=== PATIENT | female | born 1945 | race Two or more races ===

== ENCOUNTER 2017-01-26 14:59 | Emergency (ER) | payer MEDICARE ==
[2017-01-26] MEDS ORDERED: Ondansetron ODT TAB* 4 MG PO ONE (15:12)
[2017-01-26] MEDS ORDERED: Aspirin Low Dose CHEW TAB* 81 MG PO ONE (15:18)
--- NOTE | 2017-01-26 15:27 | UC ---
Abdominal Pain Female HPI - HPI Summary HPI Summary: Severe epigastric pain, cramping, and dry heaves since this morning. Denies trouble breathing or fever. - History of Current Complaint Chief Complaint: UCDizziness Stated Complaint: FAINT, Time Seen by Provider: 01/26/17 15:09 Hx Obtained From: Patient - difficulty obtaining hx due to pt pain ?: No Onset/Duration: Sudden Onset, Lasting Hours Timing: Constant Severity Initially: Moderate Severity Currently: Severe Location: Diffuse, Epigastric Radiates: No Character: Cramping Aggravating Factor(s): Movement, Deep Breaths Alleviating Factor(s): Nothing Associated Signs and Symptoms: Positive: Nausea. Negative: Diaphoresis, Fever, Cough, Urinary Symptoms Allergies/Adverse Reactions: Allergies Allergy/AdvReac Type Severity Reaction Status Date / Time Sulfa Antibiotics Allergy Hives Verified 01/26/17 15:07 IDOINE DYE Allergy HIVES ALL Uncoded 01/26/17 15:07 OVER BODY,ELEVATED BP &HR Home Medications: Home Medications Clonazepam 0.5 mg PO 01/26/17 [History] Enalapril(NF) [Enalapril (NF)] 10 mg PO 01/26/17 [History] Levothyroxine TAB* [Synthroid TAB*] 50 mcg PO 01/26/17 [History] PMH/Surg Hx/FS Hx/Imm Hx Endocrine History: Thyroid Disease Cardiovascular History: Hypertension - Surgical History Surgical History: Yes Surgery Procedure, Year, and Place: APPENDECTOMY - Family History Known Family History: Positive: Hypertension Negative: Cardiac Disease - Social History Alcohol Use: Occasionally Substance Use Type: None Smoking Status (MU): Never Smoked Tobacco Review of Systems Constitutional: Negative Skin: Negative Eyes: Negative ENT: Negative Respiratory: Negative Cardiovascular: Negative Gastrointestinal: Abdominal Pain, Nausea Genitourinary: Negative Motor: Negative Neurovascular: Negative Musculoskeletal: Negative Neurological: Negative Psychological: Negative All Other Systems Reviewed And Are Negative: Yes Physical Exam Triage Information Reviewed: Yes Appearance: Well-Nourished, Pain Distress - mod Vital Signs: Initial Vital Signs Temp 97.1 F 01/26/17 15:02 Pulse 66 01/26/17 15:02 Resp 20 01/26/17 15:02 BP 235/115 01/26/17 15:02 Pulse Ox 100 01/26/17 15:02 Vital Signs Reviewed: Yes Eye Exam: Normal, Other - PERRL Eyes: Positive: Conjunctiva Clear ENT Exam: Normal ENT: Positive: Normal ENT inspection, Hearing grossly normal, Pharynx normal, TMs normal. Negative: Tonsillar swelling, Tonsillar exudate Dental Exam: Normal Neck exam: Normal Neck: Positive: Supple, Nontender, No Lymphadenopathy Respiratory Exam: Normal Respiratory: Positive: Chest non-tender, Lungs clear, Normal breath sounds, No respiratory distress, No accessory muscle use Cardiovascular: Positive: RRR Abdomen Description: Positive: Soft, Distended - softly, Guarding. Negative: CVA Tenderness (R), CVA Tenderness (L) Neurological Exam: Other - lying with eyes closed, responding appropriately to questions Skin Exam: Normal - WWP, no diaphoresis Abd Pain Female Course/Dx - Differential Dx/Diagnosis Provider Diagnoses: epigastric pain - Physician Notification/Consults Discussed Care of Patient With: Diana Dixon Time Discussed With Above Provider: 15:22 Instructed by Provider To: MD Will See In ED Discharge - Discharge Plan Condition: Stable Disposition: TRANS HIGHER LVL OF CARE FAC
[2017-01-26 15:34] VITALS: BP 232/103
[2017-01-26] MEDS ORDERED: Morphine INJ* 2 MG/ML 1 ML SYRINGE IV ONE (15:41)
== END 2017-01-26 15:58 | disposition short-term general hospital (02) ==
LOC: UCEAST 14:59
DX: R10.13 Epigastric pain (principal); E07.9 Disorder of thyroid, unspecified; I10 Essential (primary) hypertension; Z88.3 Allergy status to other anti-infective agents
CPT/HCPCS: 93005; 96374; 99213; A9270-GY; G0463; J2270

== ENCOUNTER 2017-01-26 16:16 | Observation (INO) | payer MEDICARE ==
[2017-01-26] MEDS ORDERED: NS 0.9% 1000 ML* 1,000 ML IV ONE (17:14)
[2017-01-26] MEDS ORDERED: Ondansetron INJ* 2 MG/ML VIAL IV ONE (17:14)
--- NOTE | 2017-01-26 18:06 | RAD ---
Indication: Right upper quadrant pain. Real-time sonography of the right upper quadrant was performed. Liver is normal in size. There are no focal lesions or intrahepatic ductal dilatation noted. The gallbladder demonstrates no calcified gallstones, pericholecystic fluid or wall thickening. Common duct measures 5 mm. The right kidney measures 10.9 x 3.9 x 5.3 cm with no hydronephrosis. The pancreatic head, neck and proximal body demonstrates no mass or pancreatic duct dilatation. The aorta and inferior vena cava are unremarkable. IMPRESSION: No evidence of cholelithiasis or biliary duct dilatation is noted.
[2017-01-26 18:23] LABS: Hematocrit 41 % (35-47); Hemoglobin 13.7 g/dl (12.0-16.0); Mean Corpuscular HGB Conc 33 g/dl (31-36); Mean Corpuscular Hemoglobin 29 pg (27-31); Mean Corpuscular Volume 88 fL (80-97); Mean Platelet Volume 8 um3 (7.4-10.4); Red Blood Count 4.71 10^6/ul (4.0-5.4); Red Cell Distribution Width 14 % (10.5-15); White Blood Count 13.4 10^3/ul (3.5-10.8)
[2017-01-26] MEDS ORDERED: Nitroglycerin TAB 0.4 MG* 0.4 MG TAB SL ONE (18:29)
[2017-01-26] MEDS ORDERED: Morphine INJ* 4 MG/ML 1 ML SYRINGE IV ONE (18:30)
[2017-01-26 18:46] LABS: ALT 17 U/L (7-52); AST 24 U/L (13-39); Alkaline Phosphatase 79 U/L (34-104); Anion Gap 6 mmol/L (2-11); BUN/Creatinine Ratio 14.8 (8-20); Blood Urea Nitrogen 13 mg/dL (6-24); C Reactive Protein < 1.00 mg/L (< 5.00); CO2 Carbon Dioxide 27 mmol/L (22-32); Calcium 9.6 mg/dL (8.6-10.3); Chloride 99 mmol/L (101-111); EGFR African American 81.9 (>60); EGFR Non-African American 63.7 (>60); Globulin 3.3 g/dL (2-4); Glucose 114 mg/dL (70-100); Lipase 12 U/L (11.0-82.0); Potassium 3.9 mmol/L (3.5-5.0); Sodium 132 mmol/L (133-145); Total Protein 7.3 g/dL (6.4-8.9)
[2017-01-26] MEDS ORDERED: hydrALAZINE IV* 20 MG/ML VIAL ONE (19:45)
[2017-01-26] MEDS ORDERED: hydrALAZINE IV* 20 MG/ML VIAL IV ONE (19:45)
--- NOTE | 2017-01-26 19:47 | HP ---
H&P (Free Text) History and Physical: PCP: Danya William MD Date/Time of Evaluation: 01/26/20171944 CC: "stomach spasms" HPI: Mrs Spencer is a very pleasant 71YO [place] female HX HTN & hypothyroidism who was transferred [place] [facility] from [facility] for onset upon awakening this AM of "stomach spasms" for which she references her epigastrum. The pain was radiating to the low chest. There was some mild SOB, nausea without emesis, and light-headedness, but no sweats, palpitations, F/C, change in bowels/bladder , or other issues. There were no exacerbating factors, but morphine alleviated the pain after a bit. She exercises 6x/week without issue. While in ED she developed a mild diffuse dull headache with a systolic of 200, given 10mg IV hydralazine with good BP & headache response. 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 Father passed of lung CA at age 75. ROS: as above, otherwise reviewed and all were negative Constitutional: NAD, normally developed, well-nourished white female vitals: Vital Signs Temp 36.3 C 01/26/17 17:03 Pulse 76 01/26/17 20:00 Resp 16 01/26/17 20:00 BP 156/76 01/26/17 20:00 Pulse Ox 97 01/26/17 20:00 Intake & Output 01/25/17 01/26/17 01/26/17 23:59 11:59 23:59 Weight 57.153 kg HEENM: atraumatic; sclera/conjunctiva: non-icteric/clear; hearing: clinically intact; oropharynx: clear, mucosa moist Neck: soft tissue: non-tender; thyroid: normal Pulmonary: clear to auscultation bilaterally, good aeration, no accessory muscle use CV: RR/RR, normal S1S2, no carotid bruit, no jugular venous distention, 2+ B DP/ PT, no edema Abdominal: soft, non-distended, non-tender, no rebound/guarding/rigidity, normoactive bowel sounds, no hepatosplenomegaly or masses, no costovertebral angle tenderness Musculoskeletal: general: grossly intact; gait: stable Integumental: normal appearance and texture of exposed skin Psychiatric orientation: AA&O to PPS affect: calm mood: pleasant eye contact: good content: reliable responses: timely insight: good Testing: Lab Results 01/26/17 01/26/17 01/26/17 Range/Units 18:15 18:15 18:15 WBC 13.4 H (3.5-10.8) 10^3/ul RBC 4.71 (4.0-5.4) 10^6/ul Hgb 13.7 (12.0-16.0) g/dl Hct 41 (35-47) % MCV 88 (80-97) fL MCH 29 (27-31) pg MCHC 33 (31-36) g/dl RDW 14 (10.5-15) % Plt Count 273 (150-450) 10^3/ul MPV 8 (7.4-10.4) um3 Neut % (Auto) 88.9 H (38-83) % Lymph % (Auto) 7.7 L (25-47) % [place] % (Auto) 3.0 (1-9) % Eos % (Auto) 0 (0-6) % Baso % (Auto) 0.4 (0-2) % Absolute Neuts (auto) 11.9 H (1.5-7.7) 10^3/ul Absolute Lymphs (auto) 1.0 (1.0-4.8) 10^3/ul Absolute Monos (auto) 0.4 (0-0.8) 10^3/ul Absolute Eos (auto) 0 (0-0.6) 10^3/ul Absolute Basos (auto) 0 (0-0.2) 10^3/ul Absolute Nucleated RBC 0 10^3/ul Nucleated RBC % 0 Sodium 132 L (133-145) mmol/L Potassium 3.9 (3.5-5.0) mmol/L Chloride 99 L (101-111) mmol/L Carbon Dioxide 27 (22-32) mmol/L Anion Gap 6 (2-11) mmol/L BUN 13 (6-24) mg/dL Creatinine 0.88 (0.51-0.95) mg/dL Est GFR ( Amer) 81.9 (>60) Est GFR (Non-Af Amer) 63.7 (>60) BUN/Creatinine Ratio 14.8 (8-20) Glucose 114 H (70-100) mg/dL Lactic Acid 0.9 (0.5-2.0) mmol/L Calcium 9.6 (8.6-10.3) mg/dL Total Bilirubin 0.80 (0.2-1.0) mg/dL AST 24 (13-39) U/L ALT 17 (7-52) U/L Alkaline Phosphatase 79 (34-104) U/L Troponin I 0.00 (<0.04) ng/mL C-Reactive Protein < 1.00 (< 5.00) mg/L Total Protein 7.3 (6.4-8.9) g/dL Albumin 4.0 (3.2-5.2) g/dL Globulin 3.3 (2-4) g/dL Albumin/Globulin Ratio 1.2 (1-3) Lipase 12 (11.0-82.0) U/L ECG, personally reviewed: sinus bradycardia rate 53, new J-point elevation V3 w / subtle J-point elevation V2, inverted T-wave III; non-diagnostic US gall bladder: IMPRESSION: No evidence of cholelithiasis or biliary duct dilatation is noted. Impression: 71F presenting with atypical chest discomfort concerning for anginal equivalent DIAGNOSIS & PLAN Primary chest discomfort r/o ACS : aspirin given in ED (but not documented in SEP) : hold beta marco 2nd bradycardia : telemetry : trend troponin : supplemental oxygen : NPO after midnight w/ meds w/ sips H2O : Magic Mouthwash 15cc x1 dose : exercise NST in AM hypertensive urgency : continue enalapril : hydralazine PRN systolic >175 : trend & consider adding 2nd line agent if requiring repeated hydralazine dosing Secondary hypothyroidism : continue levothyroxine Admission Rational: CDU observation for r/o ACS DVTp: heparin SQ Code Status: full HCP:
[2017-01-26] MEDS ORDERED: traMADol TAB* 50 MG PO PRN (20:44)
[2017-01-26] MEDS ORDERED: Morphine INJ* 2 MG/ML 1 ML SYRINGE IV PRN (20:44)
[2017-01-26] MEDS ORDERED: Ondansetron INJ* 2 MG/ML VIAL IV PRN (20:44)
[2017-01-26] MEDS ORDERED: Melatonin (NF) 3 MG TAB PO PRN (20:44)
[2017-01-26] MEDS ORDERED: Acetaminophen TAB* 325 MG PO PRN (20:44)
[2017-01-26] MEDS ORDERED: NS 0.9% 1000 ML* 1,000 ML IV SCH (20:45)
[2017-01-26] MEDS ORDERED: Magic Mouth Was-BEN/MAAL/LIDO SWISH SWAL ONE (21:00)
[2017-01-26] MEDS ORDERED: hydrALAZINE IV* 20 MG/ML VIAL IV PRN (21:34)
[2017-01-26] MEDS: Docusate CAP* 100 MG PO SCH (22:08)
[2017-01-26] MEDS: clonazePAM TAB(*) 0.5 MG PO SCH ×2 (23:53→23:56)
[2017-01-27] MEDS ORDERED: clonazePAM TAB(*) 0.5 MG PO SCH
[2017-01-27] MEDS ORDERED: Heparin VIAL(*) 5000 UNITS/ML VIAL (FIVE THOUSAND) SUBCUT SCH (06:00)
[2017-01-27] MEDS ORDERED: Levothyroxine TAB* 75 MCG TAB PO SCH (06:00)
[2017-01-27] MEDS ORDERED: Omeprazole CAP* 20 MG PO SCH (06:00)
[2017-01-27 06:08] LABS: Hematocrit 39 % (35-47); Hemoglobin 12.7 g/dl (12.0-16.0); Mean Corpuscular HGB Conc 33 g/dl (31-36); Mean Corpuscular Hemoglobin 29 pg (27-31); Mean Corpuscular Volume 89 fL (80-97); Mean Platelet Volume 8 um3 (7.4-10.4); Red Blood Count 4.33 10^6/ul (4.0-5.4); Red Cell Distribution Width 14 % (10.5-15); White Blood Count 7.7 10^3/ul (3.5-10.8)
[2017-01-27 06:24] LABS: Calcium 8.8 mg/dL (8.6-10.3); EGFR African American 70.7 (>60); Potassium 3.7 mmol/L (3.5-5.0)
[2017-01-27 06:25] LABS: Troponin I 0.01 ng/mL (<0.04)
[2017-01-27] MEDS ORDERED: Enalapril TAB* 5 MG PO SCH (09:00)
[2017-01-27] MEDS: Docusate CAP* 100 MG PO SCH (10:07)
--- NOTE | 2017-01-27 10:09 | RAD ---
HISTORY: Chest pain, hypertension, shortness of breath COMPARISONS: April 22, 2007 TECHNIQUE: A 1 day stress/rest myocardial perfusion study was performed, with exercise stress. The exercise portion was performed using the Ernesto protocol, for a total METs of 12.8. The stress portion was monitored by Dr. Griggs. Gated SPECT imaging was performed, with CT-based attenuation correction DOSE: Stress: Technetium 99m tetrofosmin, 25.89 millicuries, injected at 8:57 AM on January 27, 2017 Rest: Technetium 99m tetrofosmin, 10.3 millicuries, injected at 6:45 AM on January 27, 2017 Pharmacologic agent: None FINDINGS: CARDIAC MONITORING: Peak heart rate of 167 bpm, 111% of predicted EF: 75 % TID: 0.98 MOTION: Normal motion, with normal wall thickening. PERFUSION: There are no fixed or reversible perfusion defects. OTHER: None IMPRESSION: NO FIXED OR REVERSIBLE PERFUSION DEFECTS. ASSESSMENT: LOW RISK. Based on imaging criteria from ACC/AHA 2002. Guideline Update for the Management of Patient's with Chronic Stable Angina, table 23. Noninvasive Risk Stratification.
--- NOTE | 2017-01-27 13:31 | DS ---
CC: Dr. William DISCHARGE SUMMARY: DATE OF ADMISSION: DATE OF DISCHARGE: 01/27/17 HISTORY: This 71-year-old woman presented with complaint of stomach spasms that started on the day of admission. They are in the epigastrium and radiated to the low chest. She said she had some swe ats with this. She had no emesis. No change in her bowels. Rest of the history and past history i s detailed in the admission note. Patient was admitted to the telemetry unit. She had 3 troponin levels, all within normal limits. S he underwent a treadmill nuclear stress test, which was unremarkable. 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 She has never had any trouble doing this. She smoked for short period of time 50 years ago. On the morning of discharge, she was much improved. She had some mild pain but nothing like what del had before. She has not had any analgesics for probably about 12 hours. I suspect she may have had a viral illness. It has passed quickly. I note she had ultrasound of th e gallbladder which is negative. Routine laboratory tests were unremarkable including her liver fun ction tests. FINAL DIAGNOSES: 1. Probable viral syndrome. 2. Hypertension. 3. Hypothyroidism. DISCHARGE MEDICATIONS: 1. Enalapril 5 mg b.i.d. 2. Levothyroxine 75 mcg daily. 3. Clonazepam 0.25 mg h.s. [id number]/[facility] #: [id number]
[2017-01-27 15:09] VITALS: BP 135/78
--- NOTE | 2017-01-29 22:59 | ED ---
Roseline Ray Salem, scribed for Radu Bunch MD on 01/26/17 at 1804 . Abdominal Pain/Female - HPI Summary HPI Summary: Patient is a 71 y/o F who presents to the ED per EMS with diffuse abd pain since waking up this morning. Pt was seen at [facility] and received Morphine 4mg, Aspirin 325mg, NTG, and 8mg Zofran there. Per UC, pts abd pain radiated into chest in the morning. Pt also states that pain radiated into both arms and possibly into her jaw with spasm in lower extremities. She reports nausea, dizziness, and diaphoresis. She also reports a PMHx of a thyroid disorder and HTN. - History of Current Complaint Chief Complaint: EDAbdPain Stated Complaint: ABD PAIN Time Seen by Provider: 01/26/17 17:12 Hx Obtained From: Patient Onset/Duration: Gradual Onset, Lasting Hours, Still Present Timing: Constant Severity Initially: Moderate Severity Currently: Moderate Pain Intensity: 0 Pain Scale Used: 0-10 Numeric Location: Diffuse Radiates: Yes Radiates to: Chest Aggravating Factor(s): Nothing Alleviating Factor(s): Nothing Associated Signs and Symptoms: Positive: Diaphoresis, Nausea, Other: - Dizziness. Allergies/Adverse Reactions: Allergies Allergy/AdvReac Type Severity Reaction Status Date / Time Sulfa Antibiotics Allergy Hives Verified 01/26/17 15:07 IDOINE DYE Allergy HIVES ALL Uncoded 01/26/17 15:07 OVER BODY,ELEVATED BP &HR PMH/Surg Hx/FS Hx/Imm Hx Endocrine/Hematology History: Reports: Hx Thyroid Disease Denies: Hx Diabetes Cardiovascular History: Reports: Hx Hypertension Denies: Hx Pacemaker/ICD History: Denies: Hx Renal Disease Musculoskeletal History: Denies: Hx Osteoporosis Sensory History: Denies: Hx Hearing Aid Psychiatric History: Denies: Hx Panic Disorder - Cancer History Hx Chemotherapy: No Hx Radiation Therapy: No - Surgical History Surgery Procedure, Year, and Place: APPENDECTOMY Infectious Disease History: No Infectious Disease History: Denies: Traveled Outside the [place] in Last 30 Days - Family History Known Family History: Positive: Hypertension Negative: Cardiac Disease - Social History Alcohol Use: Occasionally Hx Substance Use: No Substance Use Type: Reports: None Hx Tobacco Use: No Smoking Status (MU): Never Smoked Tobacco Review of Systems Positive: Skin Diaphoresis. Negative: Fever, Chills Negative: Erythema Negative: Sore Throat Positive: Chest Pain Negative: Shortness Of Breath, Cough Positive: Abdominal Pain, Nausea. Negative: Vomiting Negative: dysuria, hematuria Negative: Myalgia, Edema Negative: Rash Neurological: Other - Dizziness. Positive: Headache All Other Systems Reviewed And Are Negative: Yes Physical Exam - Summary Physical Exam Summary: Constitutional: Well-developed, Well-nourished, Alert. (-) Distressed Skin: Warm, Dry HENT: Normocephalic; Atraumatic Eyes: Conjunctiva normal Neck: Musculoskeletal ROM normal neck. (-) JVD, (-) Stridor, (-) Tracheal deviation Cardio: Rhythm regular, rate normal, Heart sounds normal; Intact distal pulses; The pedal pulses are 2+ and symmetric. Radial pulses are 2+ and symmetric. (-) Murmur Pulmonary/Chest wall: Effort normal. (-) Respiratory distress, (-) Wheezes, (-) Rales Abd: Soft, (-) Tenderness, (-) Distension, (-) Guarding, (-) Rebound Musculoskeletal: (-) Edema Lymph: (-) Cervical adenopathy Neuro: Alert, Oriented x3 Psych: Mood and affect Normal Triage Information Reviewed: Yes Vital Signs On Initial Exam: Initial Vitals Temp Pulse Resp BP Pulse Ox 97.1 F 54 18 187/89 97 01/26/17 16:25 01/26/17 16:25 01/26/17 16:25 01/26/17 16:25 01/26/17 16:25 Vital Signs Reviewed: Yes - Kianna Coma Scale Coma Scale Total: 15 Diagnostics - Vital Signs Vital Signs Temp Pulse Resp BP Pulse Ox 01/26/17 17:03 97.3 F 54 16 187/89 96 01/26/17 16:25 97.1 F 54 18 187/89 97 - Laboratory Result Diagrams: 01/26/17 18:15 01/26/17 18:15 Lab Statement: Any lab studies that have been ordered have been reviewed, and results considered in the medical decision making process. - Ultrasound No standard instances Ultrasound Interpretation Completed By: Radiologist - GALLBLADDER US IMPRESSION : No evidence of cholelithiasis or biliary duct dilatation is noted. - EKG 1652 EKG Interpretation: Sinus bradycardia @ 53 bpm. No STEMI. No changes. Abdominal Pain Fem Course/Dx - Course Course Of Treatment: 71 y/o F presents with with diffuse abd pain since waking up this morning. Pt was seen at [facility] and received Morphine 4mg, Aspirin 325mg, NTG, and 8mg Zofran there. Per UC, pts abd pain radiated into chest in the morning. Pt also states that pain radiated into both arms and possibly into her jaw with spasm in lower extremities. She reports nausea, dizziness, and diaphoresis. Pt received Morphine, NTG, Zofran, and fluids in ED course. US shows, per radiology,. IMPRESSION: No evidence of cholelithiasis or biliary duct dilatation is noted. EKG shows Sinus bradycardia @ 53 bpm. No STEMI. No changes. Pt will be admitted. - Diagnoses Provider Diagnoses: Chest pain, unspecified - Provider Notifications Discussed Care Of Patient With: Mitchell Umana Time Discussed With Above Provider: 19:03 Instructed by Provider To: Admit As Inpatient Admit/Transition Orders Completed By ED Provider: Yes Discharge - Discharge Plan Condition: Stable Disposition: ADMITTED TO [facility] The documentation as recorded by the Roseline valerio Salem accurately reflects the service I personally performed and the decisions made by , Radu Bunch MD.
== END 2017-01-27 12:30 | disposition home or self-care (01) ==
LOC: ED 16:16 → MEDTELE 19:47
PROVIDERS: ADMIT Hospitalist; ATTEND Internal Medicine
DX: R10.13 Epigastric pain (principal); R07.9 Chest pain, unspecified; I10 Essential (primary) hypertension; E03.9 Hypothyroidism, unspecified; Z79.899 Other long term (current) drug therapy; Z88.2 Allergy status to sulfonamides
CPT/HCPCS: 36415; 76705; 78452; 80048; 80053; 83605; 83690; 84484; 85025; 85027; 86140; 93005; 93017; 96361; 96372; 96374; 96375; 99285; A9270-GY; A9502; G0378; J0360; J1644; J2270; J2405

== ENCOUNTER 2018-03-17 09:16 | Emergency (ER) | payer MEDICARE ==
--- NOTE | 2018-03-17 09:44 | UC ---
Dizzy HPI HPI Summary: IN-ROOM NOTE: Patient is a 72 y/o F. Patient reports in the room that the room is not spinning. Patient states she has a strong FRONTAL LUNDY rated 8/10. LUNDY radiates along right side to ear. LUNDY has been present since 0700 this morning. Patient states she feels WEAK and notes that when she tries to sit up, she cannot. She states she feels dizzy while attempting to sit up but not near LOC. Patient describes this dizziness as wooziness. Last night, she experienced room spinning dizziness. She also note NAUSEA but denies vomiting. Vision is at baseline. Patient denies chest pain, SOB, abdominal pain, and any other pain. Patient reports FROM in extremities. No recent fever nor neck pain. She reports high level of stress recently. Patient is retired but currently arranging a conference. Denies MO and angina. Is on medication for BP. Recently saw PCP two months ago and states BP was "fine". FMHx of HTN in mother, no FMHx of MO or CVA. Patient took home medications this morning as well as Tylenol. Patient had an episode of vertigo 5 years ago with room spinning. NOTE: Vital signs include an initial BP reading of 211/99. Pulse ox 99. Visit history is significant for Dx of atypical chest pain in January 28 2017 as well as hypertensive urgency. There is no change in EKG from that date. Patient is hypothyroid and by history has a cardiac murmur. She is on enalapril and aspirin. Her present EKG shows inferior Q-waves without ST elevation consistent with an old inferior infarct. She did have a stress test in January 28 2017 that was unremarkable. NURSES NOTE: pt states she began to feel like she was having an episode of vertigo last night. pt was dizzy. pt went to sleep and slept. pt got up today she measured her bp and it was high and she continued to be dizzy and feel nauseated. pt states she has been under increased stress over the past 1 week. - History Of Current Complaint Chief Complaint: UCDizziness Stated Complaint: DIZZINESS, HEADACHE Time Seen by Provider: 03/17/18 09:21 Hx Obtained From: Patient Onset/Duration: Lasting Days - onset last night Timing: Days - on Severity Currently: Severe Pain Intensity: 8 Pain Scale Used: 0-10 Numeric - 8/10 Character: Room Spinning - last night, notes when attempting to sit up she expericing "wozziness" Aggravating Factor(s): Position Change - sitting up aggravates dizziness Alleviating Factor(s): Nothing Associated Signs And Symptoms: Positive: Nausea. Negative: Vomiting, Chest Pain , SOB, Visual Changes - Allergies/Home Medications Allergies/Adverse Reactions: Allergies Allergy/AdvReac Type Severity Reaction Status Date / Time Sulfa (Sulfonamide Allergy Hives Verified 03/17/18 09:33 Antibiotics) IDOINE DYE Allergy HIVES ALL Uncoded 03/17/18 09:33 OVER BODY,ELEVATED BP &HR PMH/Surg Hx/FS Hx/Imm Hx Previously Healthy: Yes - hx of systolic murmur; old hx of vertigo Endocrine History: Hypothyroidism Cardiovascular History: Hypertension Neurological History: Other - vertigo Other Neurological History: vertigo - Surgical History Surgical History: Yes Surgery Procedure, Year, and Place: APPENDECTOMY - - Family History Known Family History: Positive: Hypertension Negative: Cardiac Disease - Social History Alcohol Use: Occasionally Substance Use Type: None Smoking Status (MU): Never Smoked Tobacco Review of Systems Constitutional: Other - POSITIVE: FEELING WEAK, RECENT INCREASED STRESS; NEGATIVE: FEVER ENT: Other - NEGATIVE: ABNORMAL VISION Respiratory: Other - NEGATIVE: SOB Cardiovascular: Other - NEGATIVE: CHEST PAIN Gastrointestinal: Nausea, Other - NEGATIVE: VOMITING, ABDOMINAL PAIN Musculoskeletal: Other: - NEGATIVE: NECK PAIN Neurological: Headache - FRONTAL RADIATING TO RIGHT SIDE OF HEAD, Other - POSITIVE: DIZZINESS; NEGATIVE: NEAR LOC All Other Systems Reviewed And Are Negative: Yes - Comments Additional Review of Systems Comments: POSITIVE: WEAK, FRONTAL LUNDY WITH RADIATION TO RIGHT SIDE OF HEAD, NAUSEA, DIZZINESS, RECENT INCREASED STRESS. NEGATIVE: ABNORMAL VISION, CHEST PAIN, ABDOMINAL PAIN, SOB, VOMITING, NEAR LOC, FEVER, NECK PAIN Physical Exam - Summary Physical Exam Summary: Appearance: The patient is well-appearing, is in no pain distress, and is well- nourished. PATIENT IS LYING SUPINE Eyes: Conjunctiva are clear. ENT: The hearing is grossly normal, the pharynx is normal, and the TMs are normal. There is no muffled or hoarse voice. Neck: The neck is supple and there is no lymphadenopathy. NO CAROTID BRUITS. Respiratory: The chest is nontender. LUNGS CLEAR, CARDIOVASCULAR 2/6 HOLOSYSTOLIC.. Cardiovascular: Heart is regular rate and rhythm. There is no murmur. Abdomen: The abdomen is soft and nontender. There is no organomegaly. Bowel sounds: present Musculoskeletal: Strength is intact. NORMAL MOVEMENT IN ALL EXTREMITIES. Neurological: The patient is alert.MILD DIZZINESS WITH HEAD MOVEMENT FROM LEFT TO RIGHT. CRANIAL NERVE 2-12 INTACT; FUNDI, LIMITED EXAM, BENIGN. NORMAL NEURO EXAM Psychological: The patient displays age appropriate behavior Skin: Negative for rashes. Triage Information Reviewed: Yes Vital Signs: Initial Vital Signs Temp 96.6 F 03/17/18 09:29 Pulse 55 03/17/18 09:29 Resp 18 03/17/18 09:29 BP 211/99 03/17/18 09:29 Pulse Ox 99 03/17/18 09:29 Vital Signs Reviewed: Yes Diagnostics - EKG EKG Comments: 929 Cardiac Rate: NL - rate of 63 BPM Cardiac Rhythm: Sinus: Normal ST Segment: Normal - inferior Q-waves w/o ST elevation consistent with an old inferior infarct EKG Comparison: No Significant Change - compared w/ EKG from 01/28/2017 Dizzy Course/Dx - Course Course Of Treatment: 72 y/o F w/ c/o severe frontal and right sided LUNDY as well as vertigo Sx that onset last night. This morning she was awaken w/ non- vertiginous "dizziness" and nausea. In the urgent care center, her initial BP was above 200, subsequent in 190s. She is oriented and normally conversive. Her EKG shows no acute ischemia or arrhythmia, she does have an old murmur. My concern is that her neurological Sx may be related to her BP, although this could be simply severe vertigo and hypertensive urgency that is intermittent and chronic. Patient had an episode of vertigo 5 years ago with room spinning. I spoke to the patient and her friend who was present in the room. They have chose to go to ED via ambulance for further treatment as needed. Differential Dx of vertigo, exacerbation of HTN, LUNDY versus cerebrovascular event. Dx of HTN, LUNDY, vertigo: etiology unspecified. Patient is stable and voiced understanding of transfer plan. - Differential Dx/Diagnosis Differential Diagnosis/HQI/PQRI: CVA, Other - HTN, vertigo, LUNDY Provider Diagnoses: HTN, LUNDY, vertigo: unclear etiology - Physician Notifications Discussed Patient Care With: MICHAEL BENITEZ Time Discussed With Above Provider: 10:17 Instructed by Provider To: Other - At 1017: Informed MICHAEL Benitez of incoming patient to [facility] ED. Discharge - Sign-Out/Discharge Documenting (check all that apply): Patient Departure - transfer All imaging exams completed and their final reports reviewed: No Studies - Discharge Plan Condition: Stable Disposition: TRANS HIGHER LVL OF CARE FAC Referrals: Anil William MD [Primary Care Provider] - Additional Instructions: Ambulance to ED. EKG: no change since January,. Old inferior infarct. No acute ischemia or arrythmia. Previously noted systolic murmur. No a fib. Headache, frontal and right side of head; BP, rechecked, 190s, systolic; significant vertigo with any movement. Previous vertigo 5 years ago. Probable vertigo and exacerbation of hypertension with tension headache but cannot rule out cerebrovascular event. - Billing Disposition and Condition Condition: STABLE Disposition: Trans Higher Lvl of Care Fac - Attestation Statements Document Initiated by Scribe: Yes Documenting Scribe: Jarrell Gonzalez Provider For Whom Maldonado is Documenting (Include Credential): Ilan De Jesus M.D. Scribe Attestation: Jarrell Ray, scribed for Ilan De Jesus M.D. on 03/17/18 at 1026. Scribe Documentation Reviewed: Yes Provider Attestation: The documentation as recorded by the Jarrell valerio accurately reflects the service I personally performed and the decisions made by , Ilan De Jesus M.D.
[2018-03-17 09:48] VITALS: BP 193/95
== END 2018-03-17 10:31 | disposition short-term general hospital (02) ==
LOC: UCEAST 09:16
DX: R42 Dizziness and giddiness (principal); R51 Headache; I10 Essential (primary) hypertension
CPT/HCPCS: 93005; 99213; G0463

== ENCOUNTER 2018-03-17 10:52 | Inpatient (IN) | payer MEDICARE ==
--- NOTE | 2018-03-17 11:22 | ED ---
Hypertension - HPI Summary HPI Summary: This patient is a 72 year old F presenting to [facility] with a chief complaint of a headache with elevated blood pressure since last night. Headache is 8/10 in severity. Patient reports lightheadedness, generalized weakness, and nausea. Denies CP, SOB, vision changes and abdominal pain. PMHx of heart murmur, HTN that is typically well controlled with medication. History of hospital admissions due to elevated blood pressure. Denies history of CVA and TIA. - History of Current Complaint Chief Complaint: EDHypertension Stated Complaint: DIZZINESS/HEADACHE Time Seen by Provider: 03/17/18 10:57 Hx Obtained From: Patient Onset/Duration: Started Hours Ago Timing: Constant Aggravating Factor(s): Nothing Alleviating Factor(s): Nothing Associated Signs & Symptoms: Headaches, Dizziness Related Hx: Similar Episode - Allergies/Home Medications Allergies/Adverse Reactions: Allergies Allergy/AdvReac Type Severity Reaction Status Date / Time Iodinated Contrast- Oral and Allergy Hives Verified 03/17/18 18:52 IV Dye Iodine and Iodide Containing Allergy Hives Verified 03/17/18 18:52 Produc Sulfa (Sulfonamide Allergy Hives Verified 03/17/18 11:04 Antibiotics) IDOINE DYE Allergy HIVES ALL Uncoded 03/17/18 11:04 OVER BODY,ELEVATED BP &HR Home Medications: Home Medications Vitamin B-12 03/17/18 [History] Vitamin B6 TAB* PO DAILY 03/17/18 [History] PMH/Surg Hx/FS Hx/Imm Hx Endocrine/Hematology History: Reports: Hx Thyroid Disease Denies: Hx Diabetes Cardiovascular History: Reports: Hx Angina, Hx Hypercholesterolemia, Hx Hypertension Denies: Hx Coronary Artery Disease, Hx Myocardial Infarction, Hx Pacemaker/ ICD Respiratory History: Denies: Hx Asthma, Hx Chronic Obstructive Pulmonary Disease (COPD) History: Denies: Hx Dialysis, Hx Renal Disease Musculoskeletal History: Denies: Hx Rheumatoid Arthritis, Hx Osteoporosis Sensory History: Reports: Hx Contacts or Glasses Denies: Hx Hearing Aid Opthamlomology History: Reports: Hx Contacts or Glasses Psychiatric History: Denies: Hx Panic Disorder - Cancer History Hx Chemotherapy: No Hx Radiation Therapy: No - Surgical History Surgery Procedure, Year, and Place: APPENDECTOMY - - Immunization History Immunizations Up to Date: Yes Infectious Disease History: No Infectious Disease History: Denies: Traveled Outside the [place] in Last 30 Days - Family History Known Family History: Positive: Hypertension Negative: Cardiac Disease - Social History Alcohol Use: Occasionally Hx Substance Use: No Substance Use Type: Reports: None Hx Tobacco Use: No Smoking Status (MU): Never Smoked Tobacco Review of Systems Positive: Other - lightheaded Negative: Blurred Vision Positive: Other - hypertension. Negative: Chest Pain Negative: Shortness Of Breath Positive: Nausea. Negative: Abdominal Pain Positive: Headache, Weakness All Other Systems Reviewed And Are Negative: Yes Physical Exam - Summary Physical Exam Summary: GENERAL: Patient is a well developed and nourished female who appears generally malaised. Patient is not in any acute respiratory distress. HEAD AND FACE: Normocephalic EYES: PERRLA, EOMI x 2. EARS: Hearing grossly intact. MOUTH: Oropharynx within normal limits. NECK: Supple, trachea is midline, no adenopathy, no JVD, no carotid bruit. CHEST: Symmetric, no tenderness at palpation LUNGS: Clear to auscultation bilaterally. No wheezing or crackles. CVS: Regular rate and rhythm, S1 and S2 present, no murmurs or gallops appreciated. ABDOMEN: Soft, non-tender. Bowel sounds are normal. No abdominal abnormal pulsations. EXTREMITIES: Full ROM in all major joints, no edema, no cyanosis or clubbing. NEURO: Alert and oriented x 3. No acute neurological deficits. Speech is normal and follows commands. Cranial nerves II-XII grossly intact, no dysmetria finger to nose, nml heel to harris SKIN: Dry and warm Triage Information Reviewed: Yes Vital Signs On Initial Exam: Initial Vitals Temp Pulse Resp BP Pulse Ox 97.9 F 52 16 170/107 99 03/17/18 10:56 03/17/18 10:56 03/17/18 10:56 03/17/18 10:56 03/17/18 10:56 Vital Signs Reviewed: Yes Diagnostics - Vital Signs Vital Signs Temp Pulse Resp BP Pulse Ox 03/17/18 10:56 97.9 F 52 16 170/107 99 - Laboratory Result Diagrams: 03/17/18 11:45 03/17/18 11:44 Lab Statement: Any lab studies that have been ordered have been reviewed, and results considered in the medical decision making process. - Radiology CXR Radiology Interpretation Completed By: Radiologist - Stigmata of obstructive lung disease. No acute pulmonary or cardiac process evident. ED Physician has reviewed this report. - CT Brain CT CT Interpretation Completed By: Radiologist - Negative unenhanced head CT. ED Physician has reviewed this report. - EKG 1136 Cardiac Rate: Bradycardia - 49 BPM EKG Rhythm: Sinus Bradycardia EKG Interpretation: Q wave seen in inferior lead with old infarcts; Q waves in anterior leads Hypertension Course/Dx - Course Course Of Treatment: 72 year old F presenting to [facility] with a chief complaint of a headache with elevated blood pressure since last night. Headache is 8/10 in severity. Patient reports lightheadedness, generalized weakness, and nausea. Denies CP, SOB, vision changes and abdominal pain. An EKG reveals Q wave seen in inferior lead with old infarcts; Q waves in anterior leads at 49 BPM. Patient is given Reglan, Toradol, Hydralazine, and Benadryl. A CXR reveals, "Stigmata of obstructive lung disease. No acute pulmonary or cardiac process evident." Brain CT is unremarkable. Patient is given Reglan, Toradol, Hydralazine, and Benadryl. Case discussed with hospitalist. I discussed results with patient. The patient agrees with this plan. - Diagnoses Differential Diagnosis/HQI PQRI: Drug Ingestion Provider Diagnoses: Dizzinesses - Physician Notifications Discussed Care Of Patient With: Keysha Dale - hospitalist Time Discussed With Above Provider: 13:32 Instructed by Provider To: Admit As Inpatient Discharge - Sign-Out/Discharge Documenting (check all that apply): Patient Departure - admit - Discharge Plan Condition: Stable Disposition: ADMITTED TO [facility] - Billing Disposition and Condition Condition: STABLE Disposition: Admitted to [facility] - Attestation Statements Document Initiated by Scribe: Yes Documenting Scribe: Mariam Zimmerman Provider For Whom Soniaibe is Documenting (Include Credential): Kit Erickson MD Scribe Attestation: Mariam Ray, scribed for Kit Erickson MD on 03/18/18 at 1142. Scribe Documentation Reviewed: Yes Provider Attestation: The documentation as recorded by the scribeMariam accurately reflects the service I personally performed and the decisions made by me, Kit Erickson MD
[2018-03-17 11:50] LABS: ABS Basophils 0 10^3/ul (0-0.2); ABS Eosinophils 0 10^3/ul (0-0.6); ABS Lymphocytes 1.2 10^3/ul (1.0-4.8); ABS Monocytes 0.5 10^3/ul (0-0.8); ABS Neutrophils 8.3 10^3/ul (1.5-7.7); ABS Nucleated RBC 0 10^3/ul; Eosinophil % 0.2 % (0-6); Hematocrit 39 % (35-47); Hemoglobin 13.5 g/dl (12.0-16.0); Lymphocyte % 12.3 % (25-47); Mean Corpuscular HGB Conc 34 g/dl (31-36); Mean Corpuscular Hemoglobin 30 pg (27-31); Mean Corpuscular Volume 87 fL (80-97); Mean Platelet Volume 7.2 um3 (7.4-10.4); Nucleated Red Blood Cells % 0; Platelet Count 272 10^3/ul (150-450); Red Blood Count 4.56 10^6/ul (4.00-5.40); Red Cell Distribution Width 14 % (10.5-15)
[2018-03-17 12:01] LABS: INR 1.03 (0.77-1.02)
[2018-03-17 12:09] LABS: EGFR Non-African American 66.1 (>60)
--- NOTE | 2018-03-17 12:24 | RAD ---
Indication: Dizziness. Comparison: No relevant prior exams available on the [facility] PACS for comparison. Technique: Noncontrast CT vertex of skull through foramen magnum. Report: The sulci, ventricles, and basal cisterns are normal for age. Davis matter white matter differentiation is preserved without evidence for edema. No intra or extra axial hemorrhage, mass, or fluid collection detected. Unremarkable visualized orbital contents. Unremarkable calvarium and skull base. Unremarkable scalp. The visualized paranasal sinuses and mastoid air spaces are clear. IMPRESSION: #. Negative unenhanced head CT.
[2018-03-17] MEDS ORDERED: hydrALAZINE IV* 20 MG/ML VIAL IV SLOW PU ONE (12:28)
[2018-03-17] MEDS ORDERED: Metoclopramide IV* 5 MG/ML 2 ML VIAL IV ONE (12:36)
--- NOTE | 2018-03-17 12:58 | RAD ---
Indication: Nausea, dizziness, muscle cramps. Headache. Hypertension. Comparison: July 12, 2017 CT abdomen. April 23, 2010 chest radiograph. Technique: Upright AP 1225 hours Report: Elevated lung volumes and both diffuse mild prominence of the interstitial markings and patchy rarefaction of the mid to upper lung zone interstitial markings. Costochondral calcifications noted. No focal pulmonary lesion, compelling alveolar consolidation, pleural effusion, pneumothorax. The heart, pulmonary vasculature, and mediastinal contours are unremarkable. Negative for free air beneath the diaphragm. IMPRESSION: #. Stigmata of obstructive lung disease. No acute pulmonary or cardiac process evident.
[2018-03-17] MEDS ORDERED: Ketorolac INJ* 15 MG/ML 1 ML VIAL IV PUSH ONE (14:13)
[2018-03-17] MEDS ORDERED: diPHENhydraMINE IV* 50 MG/ML 1 ml VIAL (BENADRYL) IV ONE (14:13)
[2018-03-17] MEDS ORDERED: PROCHLORPERAZINE INJ 5 MG/ML 2 ML VIAL IV PRN (14:44)
[2018-03-17] MEDS ORDERED: Ketorolac INJ* 15 MG/ML 1 ML VIAL IV PUSH PRN (14:45)
[2018-03-17] MEDS ORDERED: NS 0.9% 1000 ML* 1,000 ML IV ONE (15:05)
[2018-03-17] MEDS ORDERED: Meclizine TAB* 12.5 MG PO PRN (15:13)
--- NOTE | 2018-03-17 16:24 | HP ---
CC: Dr. William; Dr. Ardon HISTORY AND PHYSICAL: DATE OF ADMISSION: 03/17/18 TIME OF EVALUATION: 2:30 p.m. PRIMARY CARE PROVIDER: Dr. William EPOXY SPECIALIST: Dr. Ardon. CHIEF COMPLAINT: "I think I am dehydrated." HISTORY OF PRESENT ILLNESS: Ms. Spencer is a 72-year-old lady with a past medical history of hypertensi on, kauu-cq-odkswnsa aortic stenosis, hyperlipidemia, who presents to the emergency room with complai nts of headache and dizziness and the feeling that she is dehydrated. The patient was admitted to [facility] in January 2017, with complaints of chest pain. She was found to have h ypertensive urgency and the initial plan was to increase her antihypertensives and she states that he r ADRIAN inhibitor was increased to 5 mg twice a day and that she has not had issues. She states that this past week she was very busy making arrangements for a console attendant in her home that happened last night. She states that she initially felt dizzy and overnight developed a headache th at she describes as a dull sensation radiating from the right side of her forehead all the way back t o posterior area of her neck. This was associated with nausea. She also felt weak, fatigued, the di zziness persisted and she decided to come to the emergency room for further evaluation. She states t hat she has been very compliant with all of her medications. She denies eating anything different or more salty than usual despite having the console attendant at her home yesterday. There is no chest pain, p alpitations, shortness of breath, vision changes, or any focal neurological deficits. She had no fever, no chills. There is no sick contact at home. PAST MEDICAL HISTORY: 1. Swue-zx-bufgqfdf aortic stenosis. The patient was seen in December by Dr. Ardon with complaints of exertional chest pain and Dr. Ardon felt that this was secondary to progression of her aortic sten osis and recommended that she cut down on her weightlifting. The patient underwent an echocardiogram that showed an ejection fraction of 65% with [id number] aortic stenosis with aortic valve area of 1.5 to 1.6 square cm and compared to her prior echo in 2017, the mean gradient has increased from 9 and the aortic valve area was felt to be stable. The patient also underwent an echo stress test t hat showed no inducible ischemia by ECG criteria with normal BP response to exercise. 2. Hypertension. 3. Hyperlipidemia. 4. Hypothyroidism. PAST SURGICAL HISTORY: Status post appendectomy with ruptured appendix/peritonitis. MEDICATION LIST: 1. Aspirin 81 mg p.o. daily. 2. Enalapril 5 mg p.o. b.i.d. 3. Levothyroxine 50 mcg p.o. daily. 4. Magnesium oxide 400 mg p.o. daily. 5. Multiple supplements including biotin, calcium, vitamin D, cinnamon, vitamin B5, 6 and B12, and v itamin E. ALLERGIES: With SULFA, the patient had hives as well as with IODINE DYE. SOCIAL HISTORY: The patient has a remote history of tobacco abuse. No history of alcohol or drug us e. 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 He is still her surrogate decision maker, Mr. Avery Spencer, phone number is [phone]. REVIEW OF SYSTEMS: A 14-point review of systems was performed and all the pertinent negative and pos itive findings are in the HPI. PHYSICAL EXAMINATION GENERAL: The patient is a pleasant, elderly lady, sitting up in the ED stretcher, in no acute distre ss. VITAL SIGNS: Temperature 97.9, heart rate is 58, respiratory rate is 16, oxygen saturation 97% on ro om air, blood pressure is 189/99. CHEST: Breath sounds present bilaterally with no added sounds. CVS: Normal S1, S2. Regular rate and rhythm with a systolic murmur. ABDOMEN: Soft. Bowel sounds are present. EXTREMITIES: No edema. NEURO: She is alert and oriented x3. Face is symmetric. Cranial nerves II through XII grossly inta ct. She is able to move all 4 extremities. Sensation is intact. DIAGNOSTIC STUDIES/LAB DATA: The patient had a CBC that showed WBC of 10, hemoglobin of 13.5, hemat ocrit of 39, platelets of 272 with 82% neutrophils. INR is 1.0. Chemistry showed a sodium of 135, p otassium of 3.5, chloride of 101, bicarb of 27, BUN of 15, creatinine of 0.85, glucose of 101, lactic acid of 0.8, calcium of 9.4, magnesium of 2.2. LFTs are normal. Troponin was 0. CT of the brain without contrast was negative. Chest x-ray shows stigmata of obstructive lung disease, but no acute pulmonary or cardiac process was evident. EKG done 03/17/18, at 11:36 a.m. showed sinus bradycardia at 49 beats per minute with Q-waves in II, III, aVF, but no significant ST-T changes. No changes when compared to her prior EKG from January 2017. ASSESSMENT AND PLAN: Ms. Spencer is a 72-year-old lady with a past medical history of hypertension, hyp erlipidemia, hypothyroidism, vbga-ga-dnwxrhjn aortic stenosis, who presents to the emergency room wit h complaints of headache, found to have hypertensive urgency. 1. Hypertensive urgency. The patient will be admitted as observation to the telemetry floor. I am going to continue her enalapril and add hydralazine p.r.n. On her prior admission, the plan was to ad d a second agent, but her blood pressure was well controlled later on, so she continued to be on enal october only. With her history of [id number]-ptgsvhge aortic stenosis, we have to be careful with her blo od pressure control because she does need some preload to maintain her cardiac output. 2. Headache. I suspect this is associated with her uncontrolled hypertension at this point and she appears to also have a component of tension headache, likely associated with stress that she was rafaela g through last week organizing this big console attendant at her home. The patient will receive pain managem ent with acetaminophen and Toradol. CT of the brain was negative and she has no other focal neuro de ficits at this time, but if the headache persists and if she develops any other neurological symptoms , we may pursue an MRI of the brain. 3. Dizziness, likely secondary to her hypertensive urgency. We are controlling her blood pressure a nd she will have meclizine as needed for dizziness. 4. Hypothyroidism. We will continue levothyroxine. 5. DVT prophylaxis: The patient has a score of 2 on the DVT Prophylaxis Risk Assessment Guide and s he will be started on subcutaneous heparin. TIME SPENT: Approximately 50 minutes were spent with the patient's interview, medical records review , physical examination to complete the admission, more than half of this time was spent [id number] with the patient and coordination of care. [id number]/[facility] #: [id number]
[2018-03-17] MEDS: NS 0.9% 1000 ML* 1,000 ML IV SCH (17:45)
[2018-03-17] MEDS: Acetaminophen TAB* 325 MG PO PRN (17:46)
[2018-03-17] MEDS: Enalapril TAB* 5 MG PO SCH (20:12)
[2018-03-17] MEDS: Aspirin 81 mg CHEW TAB* 81 MG TAB.CHEW PO SCH (20:12)
[2018-03-17] MEDS: Heparin VIAL(*) 5000 UNITS/ML VIAL (FIVE THOUSAND) SUBCUT SCH (21:40)
[2018-03-18] MEDS: NS 0.9% 1000 ML* 1,000 ML IV SCH (03:58)
[2018-03-18] MEDS: Acetaminophen TAB* 325 MG PO PRN ×2 (04:03→11:38)
[2018-03-18] MEDS: Heparin VIAL(*) 5000 UNITS/ML VIAL (FIVE THOUSAND) SUBCUT SCH (05:56)
[2018-03-18] MEDS: Levothyroxine TAB* 50 MCG TAB PO SCH (05:56)
[2018-03-18] MEDS: Enalapril TAB* 5 MG PO SCH (09:31)
[2018-03-18] MEDS: Magnesium Oxide TAB* 400 MG PO SCH (09:31)
[2018-03-18] MEDS ORDERED: Clopidogrel TAB* 75 MG PO SCH (11:00)
[2018-03-18] MEDS: hydrALAZINE IV* 20 MG/ML VIAL IV SLOW PU PRN ×2 (12:25→20:27)
[2018-03-18] MEDS ORDERED: Gadobenate* (CONTRAST) 529 MG/ML 10 ML SDV IV ONE (13:34)
--- NOTE | 2018-03-18 13:57 | PN ---
Subjective Date of Service: 03/18/18 Interval History: HOSPITALIST PROGRESS NOTE Patient seen and examined at bedside. Care reviewed and d/w Monique Green RN. She feels a little better today, but still has right sided LUNDY and dizziness. Had one episode of blurry vision earlier today, now resolved. No CP, palpitations, dyspnea. Family History: Unchanged from Admission Social History: Unchanged from Admission Past Medical History: Unchanged from Admission Objective Active Medications: Acetaminophen (Tylenol Tab*) 650 mg PO Q6H PRN PRN Reason: pain/fever Last Admin: 03/18/18 11:38 Dose: 650 mg Aspirin (Aspirin 81 Mg Chew Tab*) 81 mg PO BEDTIME [facility] Last Admin: 03/17/18 20:12 Dose: 81 mg Clopidogrel Bisulfate (Plavix Tab*) 75 mg PO DAILY [facility] Last Admin: 03/18/18 11:38 Dose: 75 mg Gadobenate Dimeglumine (Multihance* (Contrast)) 10 ml IV ONCE ONE Stop: 03/18/18 13:35 Last Admin: 03/18/18 13:35 Dose: 10 ml Hydralazine HCl (Apresoline Iv*) 5 mg IV SLOW PU Q6H PRN PRN Reason: SBP>180 Last Admin: 03/18/18 12:25 Dose: 5 mg Levothyroxine Sodium (Synthroid Tab*) 50 mcg PO 0600 [facility] Last Admin: 03/18/18 05:56 Dose: 50 mcg Magnesium Oxide (Magox 400 Tab*) 400 mg PO DAILY [facility] Last Admin: 03/18/18 09:31 Dose: 400 mg Meclizine HCl (Antivert Tab*) 12.5 mg PO Q8HR PRN PRN Reason: DIZZINESS Last Admin: 03/18/18 04:31 Dose: 12.5 mg Prochlorperazine Edisylate (Compazine Inj*) 5 mg IV Q6H PRN PRN Reason: NAUSEA/VOMITING Tramadol HCl (Ultram*) 50 mg PO Q8H PRN PRN Reason: SEVERE PAIN Vital Signs - 8 hr 03/18/18 03/18/18 03/18/18 07:21 10:17 12:04 Temperature 97.9 F 99 F Pulse Rate 51 61 62 Respiratory 14 14 Rate Blood Pressure 159/74 143/77 188/90 (mmHg) O2 Sat by Pulse 99 99 Oximetry Oxygen Devices in Use Now: None Appearance: Pleasant elderly lady lying in bed in NAD. Eyes: No Scleral Icterus, PERRLA Ears/Nose/Mouth/Throat: Mucous Membranes Moist Neck: Trachea Midline Respiratory: Symmetrical Chest Expansion and Respiratory Effort, Clear to Auscultation Cardiovascular: RRR - Normal S1 and S2, +SM Neurological: Alert and Oriented x 3, NL Muscle Strength and Tone Result Diagrams: 03/17/18 11:45 03/17/18 11:44 Assess/Plan/Problems-Billing Assessment: Mrs Spencer is a 72yo F with PMH of HTN, mild to moderate , HLD, hypothyroidism, who presented to ED with c/o LUNDY and dizziness, found to have Hypertensive urgency. - Patient Problems (1) Hypertensive urgency Comment: - HTN is controlled now, but symptoms persist. - Cardiology consult requested for anti hypertensive optimization in the setting of . (2) Headache Comment: - Now associated with one episode of blurry vision - Neurology consult requested. - Neuro checks. - Concerned with posterior circulation CVA vs sagittal sinus thrombosis. - Aspirin/Plavix for now. (3) DVT prophylaxis Comment: - SQ heparin. (4) Full code status Status and Disposition: Change to inpatient.
[2018-03-18] MEDS: traMADol TAB* 50 MG PO PRN (15:59)
--- NOTE | 2018-03-18 16:47 | RAD ---
INDICATION: Headache and dizziness. There is clinical concern for dural venous thrombosis. COMPARISON: CT of the brain dated March 17, 2018 TECHNIQUE: Sagittal T1, axial T1, T2, susceptibility, FLAIR and diffusion-weighted images were obtained. Before and after the injection of 11 mL MultiHance MRA and MRV of the head and neck were acquired as well. FINDINGS: There are mild symmetrical involutional changes of the ventricles, cistern and sulci that are not out of proportion to the patient's age. On the T2-weighted FLAIR images there are scattered subcentimeter T2 bright foci in the periventricular and subcortical white matter, the largest at the left ngo radiata measuring 7 mm in greatest axial dimension (series 7 image 18). No other significant focal abnormality or mass effect is seen. No areas of restricted diffusion are present. There is no evidence for infarct or hemorrhage. The visualized portion of the paranasal sinuses and mastoid air cells appear clear. MRA and MRV: Arterial phase [id number] imaging does not reveal any focal abrupt filling defects of the intracranial arterial vasculature. The right common carotid artery measures 6 mm in diameter. There is atherosclerotic narrowing at the carotid bulb narrowing the internal carotid artery to 2 mm corresponding to approximately 66% degree stenosis. The left common carotid artery measures 6 mm in diameter and there is atherosclerotic calcification at the left carotid bulb causing the internal carotid artery to narrow to 4 mm corresponding to 33% degree stenosis. There are no filling defects of the dural sinuses including the sagittal sinus and bilateral transverse sinuses. The right transverse sinus is dominant relative to the left. Appropriate flow is recorded in the bilateral jugular veins. IMPRESSION: 1. There is periventricular and subcortical T2 bright hyperintensity that is most commonly associated with chronic microvascular disease. Less likely diagnosis includes acute demyelinating disease. If the latter is clinically suspected contrast-enhanced image of the brain is advised to evaluate for active enhancement. (Contrast-enhanced images of the brain were not acquired). 2. Atherosclerotic narrowing at the carotid bulb appears to cause approximately 66% degree stenosis at the right and 33% degree stenosis on the left. This MR appearance can be confirmed with ultrasound of the carotid arteries. 3. There are no abrupt filling defects on either MRA or MRV imaging that would correspond to acute infarction or venous thrombosis, respectively.
[2018-03-18] MEDS ORDERED: clonazePAM TAB(*) 0.5 MG PO ONE (21:00)
[2018-03-18] MEDS: Aspirin 81 mg CHEW TAB* 81 MG TAB.CHEW PO SCH (21:21)
[2018-03-18] MEDS: amLODIPine TAB* 5 MG PO SCH (21:39)
--- NOTE | 2018-03-18 22:40 | CONS ---
CONSULTATION REPORT: DATE OF CONSULT: 03/18/18 REQUESTING PHYSICIAN: Dr. Dumont. REASON FOR CONSULT: Headache with imbalance and vision change. HISTORY OF PRESENT ILLNESS: Nataliia Spencer is a 72-year-old woman with a history of known aortic stenosis, hypertension, who was admitted yesterday for a feeling of headache and dizziness and the question of being dehydrated. She was in the process of throwing a brood station manager [place] followed by a weekend of activities. She went through the brood station manager and it went well. The next morning, which was yesterday morning the day of admission, she woke up feeling dizzy, having difficulty walking with a headache on the right side of her head from the occiput to the frontal region with fatigue and nausea. She indicates that there was no julio vertigo and that the world was not spinning. She did not feel lightheaded like she was going to faint, but she felt as if everything was off and her balance was off. This morning, she had a transient episode of blurring of vision bilaterally. The sense of being off balance is slightly better today, but still present. Yesterday, she could hardly stand; today, she has to be careful with walking. Of note, there is no history of migraines. She does have today some nausea, no vomiting. There has been photophobia and phonophobia. There has been no neck pain. Yesterday, she had some spasms in her calf and some tingling in bilateral feet. Otherwise, there has been no other focal numbness or weakness. She denies any chest pain, chest pressure, neck pain, trauma, shortness of breath. There has been no new numbness or weakness of arms or legs other than mentioned above and other focal neurologic symptoms are as mentioned above. PAST MEDICAL HISTORY: Include hypertension, aortic stenosis, hypothyroidism. PAST SURGICAL HISTORY: Remote appendectomy. MEDICATIONS: Her current medications include: 1. Acetaminophen 650 mg p.o. q.6 hours p.r.n. fever or pain. 2. Aspirin 81 mg p.o. q. day. 3. Hydralazine 5 mg IV q.6 hours p.r.n. systolic blood pressure greater than 180. 4. Levothyroxine 50 mcg p.o. q. day. 5. Magnesium oxide 400 mg p.o. q. day. 6. Antivert 12.5 mg p.o. q.8 hours p.r.n. dizziness. 7. Compazine 5 mg IV q.6 hours p.r.n. nausea, vomiting. 8. Tramadol 50 mg p.o. q.8 hours p.r.n. severe pain. ALLERGIES: Include CONTRAST DYE, which caused hives and some shortness of breath and SULFA DRUGS, which caused hives. SOCIAL HISTORY: Nataliia Spencer lives with her and is his caregiver. He has Parkinson's disease. She has a remote history of tobacco use. She does not drink alcohol or use illicit drugs. 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 REVIEW OF SYSTEMS: Vision changes as mentioned above. There has been no change in hearing, change in speech, change in swallow. She denies any chest pain, chest pressure, palpitations, shortness of breath. There has been numbness in bilateral feet, which was transient and has gone away. There has been no other new focal numbness or weakness of arms or legs, change in bowel or bladder habits. She denies any rashes, joint pain, weight loss, drenching night sweats, high fevers for unknown reason. PHYSICAL EXAM: Her most recent vitals include a temperature of 97.9 degrees Fahrenheit, her pulse was 61 and regular, respiratory rate was 14, her saturation was 99% on room air, and her most recent blood pressure was 143/77. She had a regular cardiac rhythm. There was a 2/6 systolic murmur noted not only over her sternal border, but also over her apex of her heart. There was no carotid bruit. Her lungs were clear to auscultation. There was no evidence of peripheral edema. Her peripheral pulses were intact. No petechiae were noted. Her pupils were equal and responsive to light. I could not visualize her fundi. She had full extraocular movements with no nystagmus, full mcguire to confrontation. Her facial expression with sensation and hearing were equal with the exception of light touch, which seemed to be less on the left, but could not be reproduced with pin or cold. Her hearing was equal to finger rub. Palate was upgoing. Tongue was midline. Sternocleidomastoid and trapezius were 5/5 in strength. There was some different discomfort when tapping over the right splenius capitis compared to the left. There was no pronator drift. She had full strength in her upper and lower extremities with normal [id number] and [id number] movements. Vibration sensation was decreased at the left large toe by 20 seconds, left ankle by 15 seconds, right toe was barely felt, and right ankle decreased by 25 seconds. Proprioception was intact. There was no other asymmetry to pinprick, cold, or light touch. Reflexes were 2+ and symmetric in the upper extremities, 1+ in the lower extremities. Toes were flexor response. Her Romberg was wobbly. She could stand on her heels and her toes holding onto the examiner. When she walked, she walked very carefully with an increased stance. Tandem gait was not attempted given her clinical status. DIAGNOSTIC STUDIES/LAB DATA: Includes CBC with a white count at 10. She had normal hemoglobin and hematocrit and platelets. There was no left shift. Her INR was 1.03 and PTT was within normal limits. Her complete metabolic panel showed a glucose at 101. Her BUN/creatinine ratio was 17.6 on admission. The lactic acid was 0.8 and her repeat troponins have been 0. She had a CT of the brain performed and this film was reviewed directly. There were no clear focal changes. In looking at the sinuses, I question some opacification and discussed with Radiology, who could not tell whether this was the variant versus if there could be evidence of venous thrombosis. IMPRESSION AND PLAN: A 72-year-old woman with a history of hypertension, aortic stenosis, now with sense of imbalance, right-sided headache, transient vision changes. Her exam today is looking good other than her being very careful on her feet. Her CT of the brain was read as being unremarkable, and there was question on direct review whether there could be some changes in the sinuses. Differential diagnosis includes posterior circulation stroke, venous thrombosis and migraine, although migraine is a diagnosis of exclusion. She has no history of migraines. She cannot have a CTA or CTV secondary to CONTRAST allergy. Accordingly, we are going to proceed with an MRI of the brain , MRA of the brain and neck, and MRV of the brain for evaluation of differential diagnosis. She is on telemetry. Dr. Ardon is to see her regarding her aortic stenosis. Fasting lipid profile has been ordered for tomorrow. For now, Plavix is added to her aspirin. If we see evidence of venous thrombosis, this will indicate alternative treatment with hydration and anticoagulation. Accordingly, MRI team is called in today. Education was given regarding all the above diagnoses. In regards to headache, she had received ketorolac with some help. Given the double antiplatelet therapy, we are holding off on providing more anti-inflammatory and we will stick with Tylenol and heat. Dr. Dumont has written for tramadol to use as an alternative if Tylenol does not help significantly. TIME SPENT: Over an hour and a half was spent in patient care, education was given to the patient regarding history, differential diagnosis and workup. I will re-round later today after her scans. Dr. Prince will be taking over the service tomorrow. [id number]/[facility] #: [id number] OSMIN
--- NOTE | 2018-03-18 22:48 | PN ---
FOLLOWUP NOTE: DATE OF SERVICE: 03/18/18 Update: MRI of the brain was completed as well as MRV and MRA. There was no evidence of venous thrombosis. There was no evidence of dissection. There was no evidence of aneurysm noted on report, there was no evidence of vertebral basilar stenosis. The MRI film was reviewed directly as well as the MRA, MRV and discussed with Radiology. At this point, given there is no evidence of injury to suggest stroke, we will stop the Plavix. Most likely explanation for her symptoms is a migrainous phenomenon. She has tramadol as needed. We will give clonazepam tonight to help with sleep, muscle spasm, and anxiety. I will ask Dr. Prince to follow up tomorrow. Nonspecific white matter change was noted on MRI. This is in the setting of hypertension. Some atherosclerotic disease was noted. She is on aspirin. Lipid profile was pending. We will treat according to results. [id number]/[facility] #: [id number] MTDD
[2018-03-19] MEDS: Levothyroxine TAB* 50 MCG TAB PO SCH (05:44)
[2018-03-19] MEDS: traMADol TAB* 50 MG PO PRN ×2 (06:46→16:48)
[2018-03-19] MEDS: amLODIPine TAB* 5 MG PO SCH (07:40)
[2018-03-19] MEDS: Magnesium Oxide TAB* 400 MG PO SCH (09:07)
--- NOTE | 2018-03-19 10:54 | PN ---
Subjective Date of Service: 03/19/18 Interval History: HOSPITALIST PROGRESS NOTE Patient seen and examined at bedside. Dizziness and blurry vision are resolved, but headache continues 8/10 intensity. No N/V. Family History: Unchanged from Admission Social History: Unchanged from Admission Past Medical History: Unchanged from Admission Objective Active Medications: Acetaminophen (Tylenol Tab*) 650 mg PO Q6H PRN PRN Reason: pain/fever Last Admin: 03/18/18 11:38 Dose: 650 mg Amlodipine Besylate (Norvasc Tab*) 5 mg PO DAILY [facility] Last Admin: 03/19/18 07:40 Dose: 5 mg Aspirin (Aspirin 81 Mg Chew Tab*) 81 mg PO BEDTIME [facility] Last Admin: 03/18/18 21:21 Dose: 81 mg Hydralazine HCl (Apresoline Iv*) 5 mg IV SLOW PU Q6H PRN PRN Reason: SBP>180 Last Admin: 03/18/18 20:27 Dose: 5 mg Levothyroxine Sodium (Synthroid Tab*) 50 mcg PO 0600 [facility] Last Admin: 03/19/18 05:44 Dose: 50 mcg Magnesium Oxide (Magox 400 Tab*) 400 mg PO DAILY [facility] Last Admin: 03/19/18 09:07 Dose: 400 mg Meclizine HCl (Antivert Tab*) 12.5 mg PO Q8HR PRN PRN Reason: DIZZINESS Last Admin: 03/18/18 04:31 Dose: 12.5 mg Prochlorperazine Edisylate (Compazine Inj*) 5 mg IV Q6H PRN PRN Reason: NAUSEA/VOMITING Tramadol HCl (Ultram*) 50 mg PO Q8H PRN PRN Reason: SEVERE PAIN Last Admin: 03/19/18 06:46 Dose: 50 mg Vital Signs - 8 hr 03/19/18 03/19/18 03/19/18 03:12 03:33 03:34 Temperature 97.5 F Pulse Rate 65 Respiratory 20 17 17 Rate Blood Pressure 137/72 (mmHg) O2 Sat by Pulse 97 Oximetry 03/19/18 03/19/18 03/19/18 05:47 06:46 07:33 Temperature 97.6 F Pulse Rate 58 Respiratory 18 18 18 Rate Blood Pressure 179/87 (mmHg) O2 Sat by Pulse 98 Oximetry Oxygen Devices in Use Now: None Appearance: Pleasant lady lying down in bed in NAD. Eyes: No Scleral Icterus Ears/Nose/Mouth/Throat: Mucous Membranes Moist Neck: Trachea Midline Neurological: Alert and Oriented x 3, NL Muscle Strength and Tone Result Diagrams: 03/17/18 11:45 03/17/18 11:44 Assess/Plan/Problems-Billing Assessment: Mrs Spencer is a 72yo F with PMH of HTN, mild to moderate , HLD, hypothyroidism, who presented to ED with c/o LUNDY and dizziness, found to have Hypertensive urgency. - Patient Problems (1) Hypertensive urgency Comment: - HTN is controlled now, but symptoms persist. - Cardiology consult requested for anti hypertensive optimization in the setting of - recommended Amlodipine. (2) Headache Comment: - Now associated with one episode of blurry vision - Neurology consult appreciated. MRI/MRA/MRV negative for CVA, showed only 66% right carotid stenosis. - LUNDY could be secondary to migraines - Neuro f/u. (3) DVT prophylaxis Comment: - SQ heparin. (4) Full code status Status and Disposition: Inpatient.
--- NOTE | 2018-03-19 11:19 | ECHO ---
Patient: JOSE PARIKH [facility] Rec#: [id number] : 1945 Date: 03/19/2018 Age: 72y Height: 162.56 cm / 64.0 in Weight: 55.79 kg / 123.0 lbs Sex: F BSA: 1.59 Room#: [facility] Admit Date#: 03/17/2018 Type: Inpatient Referring: Keysha Benavides MD Reading: Rick Up MD Ad Terminal Makeup Operator: Briseyda Chen RDCS CC: Anil William MD Transthoracic Echocardiogram Indication: CVA BP: 137/72 HR: 57 Rhythm: Bradycardia Findings History: HTN,mild-mod ,HLD,hypothyroid. Technical Comments: The study quality is good. Completed at 1019. Left Ventricle: The left ventricular chamber size is decreased. Global left ventricular wall motion and contractility are within normal limits. There is normal left ventricular systolic function. The estimated ejection fraction is 55-60%. The assessment of diastolic function is non-diagnostic. Left Atrium: The left atrial chamber size is normal. Right Ventricle: The right ventricular cavity size is normal. The right ventricular global systolic function is normal. Right Atrium: The right atrial cavity size is normal. There is no patent foramen ovale visualized. There is no evidence of patent foramen ovale shunting. A patent foramen ovale is not demonstrated with color Doppler and agitated contrast. Aortic Valve: The aortic valve is trileaflet. The aortic valve leaflets are mildly thickened. Systolic excursion of the aortic valve cusps is reduced. There is no evidence of aortic regurgitation. There is mild to moderate aortic stenosis. The highest aortic valve velocity was obtained with the standard probe from the A5C view. Mitral Valve: The mitral valve leaflets are mildly thickened. There is mild mitral regurgitation. There is no evidence of mitral stenosis. Tricuspid Valve: The tricuspid valve leaflets are normal. There is mild to moderate tricuspid regurgitation. There is evidence of mild pulmonary hypertension. Pulmonic Valve: The pulmonic valve appears normal. There is no evidence of pulmonic regurgitation. There is no pulmonic stenosis. Pericardium: The pericardium appears normal. Aorta: There is no dilatation of the ascending aorta. There is no dilatation of the aortic arch. There is no dilation of the aortic root. Pulmonary Artery: The main pulmonary artery appears normal. Venous: The inferior vena cava appears normal in size. There is a greater than 50% respiratory change in the inferior vena cava dimension. Contrast: Normal saline was used as contrast for the bubble study. Intravenous contrast was used to help determine presence of intracardiac shunting. Summary: There are no significant changes when compared to the previous study done on 01/18/18 Conclusions Global left ventricular wall motion and contractility are within normal limits. The estimated ejection fraction is 55-60%. The right ventricular global systolic function is normal. A patent foramen ovale is not demonstrated with color Doppler and agitated contrast. The aortic valve leaflets are mildly thickened. There is mild to moderate aortic stenosis. There is mild mitral regurgitation. There is mild to moderate tricuspid regurgitation. There is evidence of mild pulmonary hypertension. The pericardium appears normal. Measurements Name Value Normal Range RVIDd (AP) 2D 2.5 cm (0.9 - 2.6) RVDdMajor (2D) 3.1 cm (2.2 - 4.4) RAd ISD 4CH 3.7 cm (3.4 - 4.9) RA (A4C)W 3.9 cm (2.9 - 4.6) IVSd (2D) 0.9 cm (0.6 - 1) LVPWd (2D) 0.9 cm (0.6 - 1) LVIDd (2D) 3.4 cm (3.6 - 5.4) LVIDs (2D) 2.4 cm - LV FS (2D) 31 % (25 - 45) Aortic Annulus 1.6 cm (1.4 - 2.6) Ao root diameter (2D) 2.9 cm (2.1 - 3.5) Ascending Ao 2.4 cm (2.1 - 3.4) Aortic arch 2.3 cm (1.8 - 3.4) Descending Ao 0.7 cm - LA dimension (AP) 2D 3 cm (2.3 - 3.8) LAd ISD 4CH 4.3 cm (2.9 - 5.3) LA ISD 4CH W 3.1 cm (2.5 - 4.5) Name Value Normal Range LA ESV SP 4CH (A/L) 22 ml - LA ESV SP 2CH (A/L) 43 ml - LA ESV BP (A/L) 33 ml - LA ESV BP (A/L) index 20.96 ml/m2 - LA ESV SP 4CH (MOD) 21 ml - LA ESV SP 2CH (MOD) 36 ml - Name Value Normal Range MV E-wave Vmax 0.9 m/sec - MV deceleration time 229 msec - MV A-wave Vmax 0.9 m/sec - MV E:A ratio 0.98 ratio - LV septal e' Vmax 0.07 m/sec - LV lateral e' Vmax 0.08 m/sec - LV E:e' septal ratio 12.85 ratio - LV E:e' lateral ratio 11.25 ratio - Name Value Normal Range AV Vmax 2.5 m/sec - AV VTI 54 cm - AV peak gradient 24.65 mmHg - AV mean gradient 11.12 mmHg - LVOT diameter 1.7 cm - LVOT Vmax 1.4 m/sec - LVOT VTI 35.6 cm - LVOT peak gradient 7.75 mmHg - LVOT mean gradient 3.86 mmHg - ROQUE (continuity Vmax) 1.3 cm2 - ROQUE (continuity VTI) 1.5 cm2 - Name Value Normal Range MR Vmax 4.9 m/sec - MR VTI 199 cm - Name Value Normal Range TR Vmax 3.1 m/sec - TR peak gradient 37 mmHg - RAP 3 mmHg - RVSP 40 mmHg - IVC diameter 1.9 cm - Name Value Normal Range PV Vmax 0.7 m/sec - PV peak gradient 1.95 mmHg -
[2018-03-19] MEDS ORDERED: Morphine INJ* 2 MG/ML 1 ML SYRINGE (TWO MG - NEW SYRINGE VERSION) IV PRN (12:56)
--- NOTE | 2018-03-19 20:47 | CONS ---
NEUROLOGY FOLLOWUP NOTE: DATE OF FOLLOWUP: 03/19/18 LOCATION: She is in room 444. HOSPITALIST: Dr. Keysha Dumont. CHIEF COMPLAINT: Headache. INTERVAL HISTORY: Since yesterday, Nataliia feels about the same. Her headaches get better after she receives tramadol, but it only lasts for about 4 hours. The headache is bifrontal and sometimes right hemicranial. I reviewed the history with her. She woke up with a headache, nausea, and dizziness without vertigo Monday. Prior to that, she had felt fine. She did not have her usual 1 cup of coffee in the morning because of the nausea. The headache persisted and she ended up presenting to the hospital and was admitted. She had the headache ever since. It fluctuates with treatment and is worse when she gets up and moves around. In the past, she rarely would get headaches in which she did not have 1 cup of coffee in the morning. She has never had migraines or frequent headaches in the past. She has not noticed any changes in her vision with this headache. She does note some pain behind her eyes, but notes no change in vision with eye movement. She has not had any fevers, sore throat , chills, or sweats. She rarely goes outside and has not had any skin rashes or bug bites. MEDICATIONS: Reviewed and she is on: 1. Acetaminophen 650 mg q.6 hours p.r.n. 2. Amlodipine 5 mg p.o. q. day. 3. Aspirin 81 mg p.o. q. day. 4. Hydralazine 5 mg IV q.6 hours p.r.n. 5. Tramadol 50 mg p.o. q.8 hours p.r.n. 6. Prochlorperazine 5 mg IV q.6 hours p.r.n. nausea. PHYSICAL EXAM: She looks tired, but is otherwise alert. Temperature 97.4 orally, blood pressure most recently 161/88, heart rates in the 50s, respiratory rate 16, oxygen saturation is 99% on room air. Lungs are clear bilaterally. Heart is in a regular rate and rhythm with a grade 2/6 early systolic murmur loudest at the upper right sternal border. Neck is supple. Oral mucosa is moist and there is no erythema or exudate. There does appear to be a right carotid bruit, but it may be a transmitted murmur. Neurologic Exam: Pupils are small and react to from about 2.5 to 2 mm. There is afferent pupillary defect. Eye movements are full and there is no ptosis. Funduscopic exam is unremarkable bilaterally. Facial musculature is symmetric. Palate and tongue appeared normal and speech is clear without dysarthria. Masseter strength seems normal and there is no tenderness to palpation of the temporalis region. She is alert and oriented and a good detailed historian. Memory is intact and language is fluent. DIAGNOSTIC STUDIES/LAB DATA: Laboratory data is reviewed. Last labs were 03/17 when she had a normal CBC, normal chemistry profile. Other data includes an MR angiogram of the brain and neck, which revealed about 60% right and 30% left carotid stenosis extracranially. MR venogram of the brain is reported as normal. MRI of the brains reviewed and revealed some nonspecific white matter changes. Transthoracic echocardiogram from yesterday reveals mild to moderate aortic stenosis, mild to moderate tricuspid regurgitation, mild pulmonary hypertension, ejection fraction 55% to 60%. IMPRESSION AND PLAN: Impression is that of a new onset headache suspicious for an infectious or inflammatory process. I doubt she has a bacterial infection and that should be much less sicker and have the usual signs hematologically as well as clinically including fever. Temporal arteritis or an inflammatory disorder is another possibility and I recommend we get a sat sedimentation rate and a also CRP today. I do not think she needs a lumbar puncture as I think a bacterial infection is very unlikely and I think even less likely an intracranial hemorrhage. She has some atherosclerotic disease in her cerebrovasculature, but nothing that would require intervention or cause her headaches. She has hypertension, but it is not of a magnitude at this point in time that should be causing headaches and she has had hypertension for a longtime and the headache is new and just last few days. If it is viral, it should resolve spontaneously. For now, I would recommend continuing symptomatic treatment, a sat sedimentation rate and CRP and to follow her clinically a little further. She should have urinalysis to look for proteinuria and her blood pressures should continue to be monitored and treated. I will continue to follow her along with you. [id number]/[facility] #: [id number] [facility]ENT[facility]en
[2018-03-19] MEDS: Aspirin 81 mg CHEW TAB* 81 MG TAB.CHEW PO SCH (21:51)
[2018-03-20] MEDS: Levothyroxine TAB* 50 MCG TAB PO SCH (05:22)
[2018-03-20 07:59] VITALS: BP 157/78
[2018-03-20] MEDS: amLODIPine TAB* 5 MG PO SCH (08:17)
[2018-03-20] MEDS: Magnesium Oxide TAB* 400 MG PO SCH (08:17)
[2018-03-20] MEDS: Acetaminophen TAB* 325 MG PO PRN (08:21)
--- NOTE | 2018-03-20 10:15 | CONS ---
CC: Hospitalist CARDIOLOGY CONSULTATION: DATE OF CONSULT: 03/19/18 REASON FOR CONSULT: Hypertension with known aortic stenosis. HISTORY OF PRESENT ILLNESS: Ms. Spencer is a 72-year-old woman whom I follow for aortic valve stenosis and on evaluation this summer, she was found to have mild- to- moderate stenosis. The patient was in her usual state of health. She has some chronic stress in her life from her 's illness with Parkinson's. She was also organizing an event for the weekend and had a dinner at an event on Monday night and felt well. Then Monday morning, she woke with a headache and nausea and it was found that her blood pressure to be very high, with that headache, dizziness, and nausea. At the time I saw her, she did not think that she was dehydrated, but her admission note states this. She has a history of hypertension treated with ADRIAN inhibitors, which were increased by her street openings inspector. The patient denies chest pain, pressure, heaviness, or decline in exercise ability. She denies any nonsteroidals or change in diet that would lead to increase in salt. PAST MEDICAL HISTORY: 1. Aortic valve stenosis (02/14/17 echo showed aortic valve area 1.5 cm sq. with mean gradient 11 mmHg. PA pressure of 39 mmHg). Stress echo January 2018 showed no ischemia, no increase in PA pressure rest/stress, normal BP rise. 2. Hypertension. 3. Hypothyroid disease. 4. Restless leg. 5. Diarrhea that responded to B12 replacement. 6. B12 deficiency. PAST SURGICAL HISTORY: Includes appendectomy. MEDICATIONS: The patient's outpatient medicines included: 1. Magnesium oxide. 2. Potassium. 3. Levothyroxine 50 mcg a day. 4. Evening primrose. 5. Enalapril 5 mg b.i.d. 6. Cinnamon. 7. Vitamin D. 8. Biotin. 9. Aspirin 81 mg a day. 10. Calcium citrate 950 mg every other day. 11. Zinc. 12. Vitamin E. 13. Vitamin B6. 14. Vitamin B5. 15. Vitamin B12. ALLERGIES: She is allergic or intolerant to IV CONTRAST DYE, IODINE, SULFA. FAMILY HISTORY: Significant that her father of lung cancer. Mother of melanoma with a history of hypertension. SOCIAL HISTORY: The patient is . Lives with her who has Parkinson's. 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 Smoked until 1974 (smoked 8 years). Drinks occasional glass of wine. No history of recreational drug use. Drinks a cup of coffee a day. REVIEW OF SYSTEMS: Review of systems was negative for orthopnea, PND. In fact , she said she slept well the night before. No history of diarrhea, constipation, change in bladder habits. No dysuria. No fevers, chills, or sweats. No chest pain, pressure, or heaviness. All other 15-point review of systems were unremarkable. PHYSICAL EXAM: On exam, the patient is a lean, fit-appearing older woman, looking concerned, but in no medical distress. Vitals: She is 5 feet 4 inches , weighs 123 pounds with a BMI of 21. My consult was at 03/18/18. At the time I saw her, her blood pressure was 180/89, pulse was 57, respiratory rate 18, she is afebrile, and oxygen saturation 98%. HEENT: Pupils are equal and round. Mucous membranes moist. Neck: Without increased JVP. Good carotid pulses. No audible bruits. Breath sounds clear with good effort. No wheezes, rales, or rhonchi. Coronary: S1, S2 regular, soft, early peaking. Systolic murmur heard in the right upper sternal border best. Abdomen: Flat, active bowel sounds, soft, nontender. Lower extremity is free of edema with palpable and symmetrical posterior tibial pulses and radial pulses were symmetrical. Neurologically, awake, alert, and oriented to person, place, and time. Grossly normal sensory and motor function in the upper and lower extremities and normal gait. STUDIES: A 12-lead ECG from 03/17/18 showed normal sinus rhythm 49 beats a minute. QRS axis -30. Normal AV and IV conduction times and unremarkable ST segments. QRS complexes leads 3 and AVF. Old PA versus normal variant. MRI from the brain, neck, and head reviewed showing some signs consistent with chronic microvascular disease with less likely demyelinating disease. Atherosclerotic narrowing of the carotid bulb with 65% occlusion on the right and 33% stenosis in the left. No evidence of acute [employer] STOCK [employer]ORTER infarction. LABORATORY DATA: White count 10, hemoglobin 13.5, hematocrit 39, platelets 272 , mild increase in neutrophils. INR 1.03. PTT 33. Sodium 135, potassium 3.5, glucose 101, chloride 101, bicarb 27, BUN 15, creatinine 0.85. ALT 17. Troponin 0.00, #2 0.00. BNP of 23. SUMMARY: In summary, Nataliia Spencer is a 72-year-old woman admitted with symptomatic hypertension significantly changed from her typical blood pressure ( in December of this year at my office blood pressure 148/80). Enalapril in the setting of aortic stenosis can raise blood pressure, so one option would be to replace this with a calcium channel marco and we could start low and titrate up. I have recommended amlodipine 5 mg a day. As the patient has carotid stenosis, and her blood pressure may have increased in response to increased enalopril, it is possible she has renal artery stenosis and consideration of either ultrasound or CT scan to evaluate for this could be performed to ensure renal artery stenosis is not contributing to her hypertension. Updating the lipid panel in light of her carotid plaque would be recommended and with new LDL goal of less than 70, an updated echo has already been ordered can be reviewed, but on exam, there is no evidence of significant progression in the aortic stenosis. The patient asked about caffiene and headaches, her last caffiene was Monday, it is possible that caffiene withdrawal could contribute to her head ache at this point, but I don't think it caused it. Thank you for allowing me to assist in this nice woman's care. [id number]/[facility] #: [id number] OSMIN
== END 2018-03-20 11:20 | disposition home or self-care (01) | DRG 305 ==
LOC: ED 10:52 → MEDTELE 15:27 → OBSVTOIN 03-19 09:00
PROVIDERS: ADMIT Internal Medicine; ATTEND Internal Medicine
DX: I16.0 Hypertensive urgency (principal); I10 Essential (primary) hypertension; E78.5 Hyperlipidemia, unspecified; E86.0 Dehydration; G25.81 Restless legs syndrome; E53.8 Deficiency of other specified B group vitamins; I65.23 Occlusion and stenosis of bilateral carotid arteries; I27.20 Pulmonary hypertension, unspecified; I08.2 Rheumatic disorders of both aortic and tricuspid valves; E03.9 Hypothyroidism, unspecified; Z88.2 Allergy status to sulfonamides; Z91.041 Radiographic dye allergy status; Z87.891 Personal history of nicotine dependence; Z82.49 Family history of ischemic heart disease and other diseases of the circulatory system; Z72.89 Other problems related to lifestyle; Z80.1 Family history of malignant neoplasm of trachea, bronchus and lung
CPT/HCPCS: 36415; 70450; 70544; 70549; 70553; 71045; 80053; 80061; 83036; 83605; 83735; 83880; 84484; 85025; 85610; 85652; 85730; 86140; 93005; 93306; 99213; 99284; A9270-GY; A9577; G0378; G0463; J0360; J1200; J1644; J1885; J2270; J2765

== ENCOUNTER 2018-03-24 03:18 | Emergency (ER) | payer MEDICARE ==
--- NOTE | 2018-03-24 03:29 | ED ---
Headache - HPI Summary HPI Summary: This patient is a 72 [facility] a chief complaint of severe right-sided LUNDY since earlier this evening. The patient notes the LUNDY has gradually worsened throughout the evening. The patient reports that she took Tramadol at 02:10 and since then her symptoms have improved. Patient reports that she was admitted to [facility] for 3 days this week for similar symptoms. Symptoms aggravated by nothing. Symptoms alleviated by nothing. Patient reports elevated BP, slightly blurred vision. Patient denies abdominal pain, SOB, or CP. Patient denies any cardiac PMHx. - History Of Current Complaint Stated Complaint: HIGH BLOOD PRESSURE Hx Obtained From: Patient Onset/Duration: Gradual Onset, Started hours ago, Still Present Currently Pain Is: Moderate Timing: Constant, Hours Aggravating Factor: Nothing Allevating Factors: Nothing Associated Signs And Symptoms: Visual Changes - slightly blurred vision Related History: Similar Episode/DX As: - earlier this week - Allergies/Home Medications Allergies/Adverse Reactions: Allergies Allergy/AdvReac Type Severity Reaction Status Date / Time Iodinated Contrast- Oral and Allergy Hives Verified 03/17/18 18:52 IV Dye Iodine and Iodide Containing Allergy Hives Verified 03/17/18 18:52 Produc Sulfa (Sulfonamide Allergy Hives Verified 03/17/18 11:04 Antibiotics) IDOINE DYE Allergy HIVES ALL Uncoded 03/17/18 11:04 OVER BODY,ELEVATED BP &HR PMH/Surg Hx/FS Hx/Imm Hx Endocrine/Hematology History: Reports: Hx Thyroid Disease Denies: Hx Diabetes Cardiovascular History: Reports: Hx Angina, Hx Hypercholesterolemia, Hx Hypertension Denies: Hx Coronary Artery Disease, Hx Myocardial Infarction, Hx Pacemaker/ ICD Respiratory History: Denies: Hx Asthma, Hx Chronic Obstructive Pulmonary Disease (COPD) History: Denies: Hx Dialysis, Hx Renal Disease Musculoskeletal History: Denies: Hx Rheumatoid Arthritis, Hx Osteoporosis Sensory History: Reports: Hx Contacts or Glasses Denies: Hx Hearing Aid Opthamlomology History: Reports: Hx Contacts or Glasses Psychiatric History: Denies: Hx Panic Disorder - Cancer History Hx Chemotherapy: No Hx Radiation Therapy: No - Surgical History Surgery Procedure, Year, and Place: APPENDECTOMY - - Family History Known Family History: Positive: Hypertension Negative: Cardiac Disease - Social History Alcohol Use: Occasionally Hx Substance Use: No Substance Use Type: Reports: None Hx Tobacco Use: No Smoking Status (MU): Never Smoked Tobacco Review of Systems Negative: Fever Negative: Epistaxis Positive: Other - elevated BP Negative: Rash Positive: Headache All Other Systems Reviewed And Are Negative: Yes Physical Exam - Summary Physical Exam Summary: Appearance: Well-appearing, Well-nourished, lying in bed comfortably Skin: Warm, dry, no obvious rash Eyes: sclera anicteric, no conjunctival pallor ENT: mucous membranes moist, pharynx appears normal Neck: Supple, nontender Respiratory: Clear to auscultation, no signs of respiratory distress Cardiovascular: Normal S1, S2. No murmurs. Normal distal pulses in tibial and radial bilaterally. Abdomen: Soft, nontender, normal active bowel sounds present Musculoskeletal: Normal, Strength/ROM Intact Neurological: A&Ox3, awake and alert, mentation is normal, speech is fluent and appropriate Psychiatric: affect is normal, does not appear anxious or depressed Triage Information Reviewed: Yes Vital Signs Reviewed: Yes Diagnostics - Laboratory Result Diagrams: 03/24/18 03:39 03/24/18 03:39 Lab Statement: Any lab studies that have been ordered have been reviewed, and results considered in the medical decision making process. 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 She underwent a fairly complete evaluation including MR imaging of her brain. Repeat blood studies and EKG show no evidence of end organ damage to the kidney or heart. Her neurologic exam is nonfocal. There are no new interval findings compared to last week. Her blood pressure medicine was adjusted and she is improved now. She is stable for discharge. - Diagnoses Provider Diagnoses: Headache, Hypertensive urgency Discharge - Sign-Out/Discharge Documenting (check all that apply): Patient Departure - Discharge Plan Condition: Stable Disposition: HOME Patient Education Materials: Acute Headache (ED), Chronic Hypertension (ED) Referrals: Anil William MD [Primary Care Provider] - Additional Instructions: Increase your norvasc to 10 mg daily - Billing Disposition and Condition Condition: STABLE Disposition: Home - Attestation Statements Document Initiated by Maldonado: Yes Documenting Scribe: Katarina Guerra Provider For Whom Maldonado is Documenting (Include Credential): Jeffry Foley MD Scribe Attestation: Katarina Ray, scribed for Jeffry Foley MD on 03/24/18 at 0544. Scribe Documentation Reviewed: Yes Provider Attestation: The documentation as recorded by the [email or web address], Katarina Guerra accurately reflects the service I personally performed and the decisions made by me, Jeffry Foley MD
[2018-03-24] MEDS ORDERED: amLODIPine TAB* 5 MG PO ONE (03:31)
[2018-03-24 03:49] LABS: ABS Basophils 0.1 10^3/ul (0-0.2); ABS Eosinophils 0.1 10^3/ul (0-0.6); ABS Lymphocytes 2.6 10^3/ul (1.0-4.8); ABS Monocytes 0.7 10^3/ul (0-0.8); ABS Neutrophils 3.3 10^3/ul (1.5-7.7); ABS Nucleated RBC 0 10^3/ul; Eosinophil % 1.9 % (0-6); Hematocrit 43 % (35-47); Hemoglobin 14.3 g/dl (12.0-16.0); Mean Corpuscular HGB Conc 34 g/dl (31-36); Mean Corpuscular Hemoglobin 29 pg (27-31); Mean Corpuscular Volume 87 fL (80-97); Mean Platelet Volume 7.3 um3 (7.4-10.4); Nucleated Red Blood Cells % 0; Platelet Count 304 10^3/ul (150-450); Red Blood Count 4.91 10^6/ul (4.00-5.40); Red Cell Distribution Width 14 % (10.5-15); White Blood Count 6.7 10^3/ul (3.5-10.8)
[2018-03-24 04:05] LABS: EGFR Non-African American 56.8 (>60)
[2018-03-24 05:23] VITALS: BP 131/78
== END 2018-03-24 05:24 | disposition home or self-care (01) ==
LOC: ED 03:18
DX: R51 Headache (principal); I16.0 Hypertensive urgency; E78.00 Pure hypercholesterolemia, unspecified; I10 Essential (primary) hypertension
CPT/HCPCS: 36415; 80048; 85025; 93005; 99283; A9270-GY

== ENCOUNTER 2018-03-25 04:25 | Emergency (ER) | payer MEDICARE ==
--- NOTE | 2018-03-25 05:56 | ED ---
Headache - HPI Summary HPI Summary: The pt is a 72 year old female presenting to the ED with a headache. She was in the hospital last week, she saw neurology. Pt denies nausea, vomiting, and any vision issues. Pt states she had some jolting in her sleep but it woke her up, as well as reports being unsteady on her feet. - History Of Current Complaint Chief Complaint: EDHeadache Stated Complaint: HEAD PAIN/DIZZINESS Time Seen by Provider: 03/25/18 05:45 Hx Obtained From: Patient Onset/Duration: Sudden Onset, Started hours ago, Still Present Initially Headache Was: Moderate Currently Pain Is: Moderate Timing: Constant Location of Headache: Temporal, Occipital Aggravating Factor: Exertion, Position Change Allevating Factors: Nothing Associated Signs And Symptoms: Dizziness - Allergies/Home Medications Allergies/Adverse Reactions: Allergies Allergy/AdvReac Type Severity Reaction Status Date / Time Iodinated Contrast- Oral and Allergy Hives Verified 03/17/18 18:52 IV Dye Iodine and Iodide Containing Allergy Hives Verified 03/17/18 18:52 Produc Sulfa (Sulfonamide Allergy Hives Verified 03/17/18 11:04 Antibiotics) IDOINE DYE Allergy HIVES ALL Uncoded 03/17/18 11:04 OVER BODY,ELEVATED BP &HR PMH/Surg Hx/FS Hx/Imm Hx Previously Healthy: No Endocrine/Hematology History: Reports: Hx Thyroid Disease Denies: Hx Diabetes Cardiovascular History: Reports: Hx Angina, Hx Hypercholesterolemia, Hx Hypertension Denies: Hx Coronary Artery Disease, Hx Myocardial Infarction, Hx Pacemaker/ ICD Respiratory History: Denies: Hx Asthma, Hx Chronic Obstructive Pulmonary Disease (COPD) History: Denies: Hx Dialysis, Hx Renal Disease Musculoskeletal History: Denies: Hx Rheumatoid Arthritis, Hx Osteoporosis Sensory History: Reports: Hx Contacts or Glasses Denies: Hx Hearing Aid Opthamlomology History: Reports: Hx Contacts or Glasses Psychiatric History: Denies: Hx Panic Disorder - Cancer History Hx Chemotherapy: No Hx Radiation Therapy: No - Surgical History Surgery Procedure, Year, and Place: APPENDECTOMY - Infectious Disease History: No Infectious Disease History: Denies: Traveled Outside the [place] in Last 30 Days - Family History Known Family History: Positive: Hypertension Negative: Cardiac Disease - Social History Alcohol Use: Occasionally Hx Substance Use: No Substance Use Type: Reports: None Hx Tobacco Use: No Smoking Status (MU): Never Smoked Tobacco Review of Systems Constitutional: Other - jolting in her sleep that woke her up Negative: Fever Negative: Other - any vision issues Negative: Vomiting, Nausea All Other Systems Reviewed And Are Negative: Yes Physical Exam - Summary Physical Exam Summary: Appearance: Well-appearing, Well-nourished, lying in bed comfortably Skin: Warm, dry, no obvious rash Eyes: sclera anicteric, no conjunctival pallor ENT: mucous membranes moist, pharynx appears normal Neck: Supple, nontender Respiratory: Clear to auscultation, no signs of respiratory distress Cardiovascular: Normal S1, S2. No murmurs. Normal distal pulses in tibial and radial bilaterally. Abdomen: Soft, nontender, normal active bowel sounds present Musculoskeletal: Normal, Strength/ROM Intact Neurological: A&Ox3, awake and alert, mentation is normal, speech is fluent and appropriate, cranial nerves intact Psychiatric: affect is normal, does not appear anxious or depressed Triage Information Reviewed: Yes Vital Signs On Initial Exam: Initial Vitals Temp Pulse Resp BP Pulse Ox 97.4 F 81 20 168/96 99 03/25/18 04:31 03/25/18 04:31 03/25/18 04:31 03/25/18 04:31 03/25/18 04:31 Vital Signs Reviewed: Yes Diagnostics - Vital Signs Vital Signs Temp Pulse Resp BP Pulse Ox 03/25/18 04:31 97.4 F 81 20 168/96 99 - Laboratory Lab Statement: Any lab studies that have been ordered have been reviewed, and results considered in the medical decision making process. Headache Course/Dx - Course Course Of Treatment: This is a 72-year-old woman who presents with recurrent headache. I saw her last night after handoff he presented with the same headache associated with markedly elevated blood pressure. Her blood pressure was treated with hydralazine and lisinopril and her headache was treated with analgesics with good result and she felt better when she left. However through the course of the evening her headache recurred and she comes back with severe right-sided headache associated with some gait instability. She has not fallen. Her symptoms sound fairly much identical to what she was admitted for last week, when she had quite extensive evaluation including magnetic resonance imaging and angiogram and neurologic consultation. I spoke to the covering neurologist morning about the patient and asked that she be seen again in consultation. Dr. Hall will see her here this morning and he asked that I check the [facility] program to make sure she has not had a history of filling opioid prescriptions. I did this and there is no record of anything outside of a single prescription for tramadol that she was given last week. Further testing and treatment will be at the discretion of Dr. Hall when he sees her. Discharge - Sign-Out/Discharge Documenting (check all that apply): Sign-Out Patient Signing out patient TO: Gus Armstrong Receiving patient FROM: Jeffry Foley - Discharge Plan Condition: Fair Referrals: Anil William MD [Primary Care Provider] - - Billing Disposition and Condition Condition: FAIR - Attestation Statements Document Initiated by Scribe: Yes Documenting Scribe: Karen Hart Provider For Whom Scribe is Documenting (Include Credential): eJffry Foley MD. Scribe Attestation: I, Karen Hart, scribed for Jeffry Foley MD. on 03/25/18 at 0613. Consult Consult: 06 - Spoke with Dr. Hall about the pt's current status, said he would be coming in to see her.
--- NOTE | 2018-03-25 07:02 | ED ---
Progress - Progress Note Progress Note: Patient is a 72 y/o F sign out from Dr. Foley to Dr. Armstrong at 0700 03/25/18 0725 re-eval: Patient still reports LUNDY. BP in room at time is 134/80. Dr. Prince is her neurologist. LUNDY is right sided frontal and has lasted eight days. Medication reduces severity but patient states pain will usually come back after some time. Patient states she has recently developed jolts while sleeping. Pain in room stated by patient is 4-5/10. Patient has BP medication. Re-Evaluation - Re-Evaluation First Eval Re-Evaluation Time: 07:25 Change: Unchanged Comment: Patient still reports LUNDY. BP in room at time is 134/80. Dr. Prince is her neurologist. LUNDY is right sided frontal and has lasted eight days. Medication reduces severity but patient states pain will usually come back after some time. Patient states she has recently developed jolts while sleeping. Pain in room stated by patient is 4-5/10. Patient has BP medication. Second Eval Re-Evaluation Time: 08:20 Comment: Discussed possibility of spinal tap in ED or as outpatient. Patient would prefer out-patient spinal tap. She is agreeable with discharge to home. Course/Dx - Course Course Of Treatment: Assumed care from previous physician who had discussed the case with the neurologist. They recommend outpatient lumbar puncture. The patient was offered that here but refused. 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 Her headache is mild at this point in she was treated with oral promethazine. She has had recent MRI of the head, neck including MRA as well. She is benign-appearing with blood pressure systolic 134. Discharged in good condition to follow up with her neurologist. - Diagnoses Provider Diagnoses: Chronic headache Discharge - Sign-Out/Discharge Documenting (check all that apply): Patient Departure - discharge , Receiving Sign-Out Signing out patient TO: Gus Armstrong Receiving patient FROM: Jeffry Foley - Discharge Plan Condition: Improved Disposition: HOME Prescriptions: Promethazine TAB* [Phenergan Tab*] 25 mg PO Q6H PRN #30 tab PRN Reason: headache/nausea Patient Education Materials: Migraine Headache (ED) Referrals: Anil William MD [Primary Care Provider] - Additional Instructions: 1. Call Monday to schedule a follow-up appointment with Dr. Prince your neurologist. They can perform outpatient lumbar puncture as discussed. 2. Prescribe medication can be taken with Benadryl, a bottle of water, some caffeine for more significant headache 3. Return with fever, visual changes, numbness/weakness, uncontrolled headache , worse or other concerns. - Billing Disposition and Condition Condition: IMPROVED Disposition: Home - Attestation Statements Document Initiated by Maldonado: Yes Documenting Scribe: Jarrell Gonzalez Provider For Whom Maldonado is Documenting (Include Credential): Gus Armstrong MD Scribe Attestation: I, Jarrell Gonzalez, scribed for Gus Armstrong MD on 03/25/18 at 0943. Scribe Documentation Reviewed: Yes Provider Attestation: The documentation as recorded by the Jarrell valerio accurately reflects the service I personally performed and the decisions made by me, Gus Armstrong MD
[2018-03-25] MEDS ORDERED: Naproxen TAB* 250 MG PO ONE (07:36)
[2018-03-25] MEDS ORDERED: Promethazine TAB* 25 MG PO ONE (07:36)
[2018-03-25 08:21] VITALS: BP 168/94
== END 2018-03-25 08:31 | disposition home or self-care (01) ==
LOC: ED 04:25
DX: R51 Headache (principal); R11.0 Nausea
CPT/HCPCS: 99282; A9270-GY

== ENCOUNTER 2018-03-29 08:16 | Emergency (ER) | payer MEDICARE ==
[2018-03-29 08:35] VITALS: BP 160/84
--- NOTE | 2018-03-29 08:36 | UC ---
Upper Extremity HPI - HPI Summary HPI Summary: This patient is a 72 year old F presenting to [facility] [place] with a chief complaint of burning left arm sensation since 3 hours ago when she woke up. The patient rates the pain 7/10 in severity. Patient reports a slight headache and nausea. Patient denies chest pain, SOB, and vomiting. She recently changed medications for high BP from Enalapril to Amlodipine. She does not believe it is working because she reports she had a BP of 180/110 this morning. Patient last took an aspirin last night. - History of Current Complaint Stated Complaint: L ARM PAIN, HIGH BLOOD PRESSURE Time Seen by Provider: 03/29/18 08:21 Hx Obtained From: Patient Onset/Duration: Sudden Onset, Lasting Hours - 3 hours ago, Still Present Severity Initially: Moderate Severity Currently: Moderate Pain Intensity: 7 Pain Scale Used: 0-10 Numeric Location Of Pain: Is Discrete @ - left arm Character: Burning Associated Signs And Symptoms: Positive: Other - Slight headache, nausea. Denies chest pain, SOB, and vomiting. - Allergies/Home Medications Allergies/Adverse Reactions: Allergies Allergy/AdvReac Type Severity Reaction Status Date / Time Iodinated Contrast- Oral and Allergy Hives Verified 03/29/18 09:53 IV Dye Iodine and Iodide Containing Allergy Hives Verified 03/29/18 09:53 Produc Sulfa (Sulfonamide Allergy Hives Verified 03/29/18 09:53 Antibiotics) IDOINE DYE Allergy HIVES ALL Uncoded 03/29/18 09:53 OVER BODY,ELEVATED BP &HR PMH/Surg Hx/FS Hx/Imm Hx Endocrine History: Diabetes - Denies Cardiovascular History: Hypertension - Surgical History Surgical History: Yes Surgery Procedure, Year, and Place: APPENDECTOMY - - Family History Known Family History: Positive: Hypertension Negative: Cardiac Disease - Social History Occupation: Retired Lives: With Family Alcohol Use: Occasionally Substance Use Type: None Smoking Status (MU): Never Smoked Tobacco - Immunization History Most Recent Influenza Vaccination: never Most Recent Pneumonia Vaccination: none Review of Systems Respiratory: Shortness Of Breath - Denies Cardiovascular: Chest Pain - Denies Gastrointestinal: Vomiting - Denies, Nausea Musculoskeletal: Other: - Burning left arm sensation Neurological: Headache All Other Systems Reviewed And Are Negative: Yes Physical Exam - Summary Physical Exam Summary: VITAL SIGNS: Reviewed. GENERAL: Patient is a well-developed and nourished FEMALE who is lying comfortable in the stretcher. Patient is not in any acute respiratory distress, but seems weak and tired. HEAD AND FACE: Normocephalic EYES: PERRLA, EOMI x 2. EARS: Hearing grossly intact. MOUTH: Oropharynx within normal limits. NECK: Supple, trachea is midline, no adenopathy, no JVD, no carotid bruit. CHEST: Symmetric, no tenderness at palpation LUNGS: Clear to auscultation bilaterally. No wheezing or crackles. CVS: Regular rate and rhythm, S1 and S2 present, Ejection systolic murmur 2/6. ABDOMEN: Soft, non-tender. Bowel sounds are normal. No abdominal abnormal pulsations. EXTREMITIES: Full ROM in all major joints, no edema, no cyanosis or clubbing. NEURO: Alert and oriented x 3. No acute neurological deficits. Speech is normal and follows commands. SKIN: Dry and warm Triage Information Reviewed: Yes Vital Signs: Initial Vital Signs Temp 97.9 F 03/29/18 08:32 Pulse 62 03/29/18 08:32 Resp 16 03/29/18 08:32 BP 160/84 03/29/18 08:32 Pulse Ox 98 03/29/18 08:32 Vital Signs Reviewed: Yes Diagnostics - EKG Cardiac Rate: NL - [address] Segment: Normal EKG Comparison: No Significant Change - Compared to 03/24/2018 Upper Extremity Course/Dx - Course Course Of Treatment: This patient is a 72-year-old female who presents to the urgent care with a chief complaint of having left arm numbness and burning sensation as well as uncontrolled high blood pressure. The patient reports that she was recently admitted to the hospital for hypertensive urgency however she thinks that the medication is not working. This morning when she woke up the blood pressure was 180/110. In the urgent care the patient continued to have the symptoms therefore she will be transferred to the emergency department via ambulance for further workup and management. Patient has past medical history significant for hypertension, coronary artery disease. Discussed the case with Ms. Champ RODRIGUEZ who is was aware that the patient is going to the emergency department. - Differential Dx/Diagnosis Provider Diagnoses: Hypretension. Left arm pain Discharge - Sign-Out/Discharge Documenting (check all that apply): Patient Departure - Transfer via ambulance to [facility] All imaging exams completed and their final reports reviewed: No Studies - Discharge Plan Condition: Stable Disposition: TRANS HIGHER LVL OF CARE FAC Referrals: Anil William MD [Primary Care Provider] - - Billing Disposition and Condition Condition: STABLE Disposition: Trans Higher Lvl of Care Fac - Attestation Statements Document Initiated by Scribe: Yes Documenting Scribe: Andrae Patricio Provider For Whom Scribe is Documenting (Include Credential): Hossein Motley MD Scribe Attestation: Andrae Ray, scribed for Hossein Motley MD on 03/30/18 at 2137. Scribe Documentation Reviewed: Yes Provider Attestation: The documentation as recorded by the Andrae valerio accurately reflects the service I personally performed and the decisions made by me, Hossein Motley MD
[2018-03-29] MEDS ORDERED: Aspirin 81 mg CHEW TAB* 81 MG TAB.CHEW ONE (08:48)
[2018-03-29] MEDS ORDERED: Aspirin 81 mg CHEW TAB* 81 MG TAB.CHEW PO SCH (09:00)
== END 2018-03-29 09:00 | disposition short-term general hospital (02) ==
LOC: UCEAST 08:16
DX: M79.602 Pain in left arm (principal); I10 Essential (primary) hypertension; Z88.2 Allergy status to sulfonamides; Z88.3 Allergy status to other anti-infective agents; Z91.041 Radiographic dye allergy status
CPT/HCPCS: 93005; 99213; A9270-GY; G0463

== ENCOUNTER → 2018-03-29 09:22 | Emergency (ER) | payer MEDICARE ==
--- NOTE | 2018-03-29 10:08 | ED ---
Upper Extremity Pain - HPI Summary HPI Summary: A 72 y/o F presents to ED referred from [facility] with c/o constant LUE pain onset approx 0500 upon waking. Pain is described as burning. She took her BP at home: 160/110. At 0700 she took her HTN medication. Associated sx: nausea, mild LUNDY. Denies neck pain, CP. UCE gave pt aspirin which resolved her nausea. Pt states she also has LE rash, she states it becomes worse during the evening. Pert PMHx : HTN, LUNDY. She is scheduled to f/u with Dr. Ardon tomorrow. Dr. William is her PCP. She was last seen in the ED on both 03/24 and 03/25. - History of Current Complaint Chief Complaint: EDExtremityUpper Stated Complaint: LT ARM PAIN Time Seen by Provider: 03/29/18 10:06 Hx Obtained From: Patient Onset/Duration: Started Hours Ago, Still Present Timing: Constant Pain Location: Other: - throughout entire length of LUE Alleviating Factor(s): OTC Meds Associated Signs & Symptoms: Positive: Redness - LE rash, Nausea - resolved, Other - pos: mild LUNDY. Negative: Chest Pain, Neck Pain - Allergies/Home Medications Allergies/Adverse Reactions: Allergies Allergy/AdvReac Type Severity Reaction Status Date / Time Iodinated Contrast- Oral and Allergy Hives Verified 03/29/18 09:53 IV Dye Iodine and Iodide Containing Allergy Hives Verified 03/29/18 09:53 Produc Sulfa (Sulfonamide Allergy Hives Verified 03/29/18 09:53 Antibiotics) IDOINE DYE Allergy HIVES ALL Uncoded 03/29/18 09:53 OVER BODY,ELEVATED BP &HR Home Medications: Home Medications Calcium Cit/Mag/D3/Zn/Extrusion Press Adjuster/Manas [Calcium Citrate Plus Tablet] 1 tab PO DAILY 01/08 [History Confirmed 03/29/18] Cholecalciferol (Vitamin D3) [Vitamin D3] 5,000 unit PO DAILY 03/29/18 [History Confirmed 03/29/18] Cinnamon Bark [Cinnamon] 1,000 mg PO DAILY 03/29/18 [History Confirmed 03/29/18] Cyanocobalamin TAB* [Vitamin B12 TAB*] 1,000 mcg PO DAILY 03/29/18 [History Confirmed 03/29/18] Levothyroxine TAB* [Synthroid TAB*] 75 mcg PO DAILY 03/29/18 [History Confirmed 03/29/18] Magnesium Oxide TAB* [MagOx 400 TAB*] 400 mg PO DAILY 03/29/18 [History Confirmed 03/29/18] Potassium 99 mg PO DAILY 03/29/18 [History Confirmed 03/29/18] Pyridoxine TAB* [Vitamin B6 TAB*] 50 mg PO DAILY 03/29/18 [History Confirmed 01/08] Vitamin E Acetate [Vitamin E] 1,000 unit PO DAILY 03/29/18 [History Confirmed ] PMH/Surg Hx/FS Hx/Imm Hx Previously Healthy: No Endocrine/Hematology History: Reports: Hx Thyroid Disease Denies: Hx Diabetes Cardiovascular History: Reports: Hx Angina, Hx Hypercholesterolemia, Hx Hypertension Denies: Hx Coronary Artery Disease, Hx Myocardial Infarction, Hx Pacemaker/ ICD Respiratory History: Denies: Hx Asthma, Hx Chronic Obstructive Pulmonary Disease (COPD) History: Denies: Hx Dialysis, Hx Renal Disease Musculoskeletal History: Denies: Hx Rheumatoid Arthritis, Hx Osteoporosis Sensory History: Reports: Hx Contacts or Glasses Denies: Hx Hearing Aid Opthamlomology History: Reports: Hx Contacts or Glasses Psychiatric History: Denies: Hx Panic Disorder - Cancer History Hx Chemotherapy: No Hx Radiation Therapy: No - Surgical History Surgery Procedure, Year, and Place: APPENDECTOMY - - Immunization History Immunizations Up to Date: Yes Infectious Disease History: No Infectious Disease History: Denies: Traveled Outside the [place] in Last 30 Days - Family History Known Family History: Positive: Hypertension Negative: Cardiac Disease - Social History Occupation: Retired Lives: With Family Alcohol Use: Occasionally Hx Substance Use: No Substance Use Type: Reports: None Hx Tobacco Use: No Smoking Status (MU): Never Smoked Tobacco Review of Systems Negative: Chest Pain Positive: Nausea - resolved Positive: Myalgia - LUE pain. Negative: Arthralgia - neg: neck pain Positive: Rash - LE All Other Systems Reviewed And Are Negative: Yes Physical Exam - Summary Physical Exam Summary: Appearance: The patient is well-nourished in no acute distress and in no acute pain. Skin: The skin is warm and dry and skin color reflects adequate perfusion. HEENT: The head is normocephalic and atraumatic. The pupils are equal and reactive. The conjunctivae are clear and without drainage. Nares are patent and without drainage. Mouth reveals moist mucous membranes and the throat is without erythema and exudate. The external ears are intact. The ear canals are patent and without drainage. The tympanic membranes are intact. Neck: the neck is supple with full range of motion and non-tender. There are no carotid bruits. There is no neck vein distension. Respiratory: Chest is non-tender. Lungs are clear to auscultation and breath sounds are symmetrical and equal. Cardiovascular: Heart is regular rate and rhythm. There is a soft systolic ejection murmur. There is no peripheral edema and pulses are symmetrical and equal. Abdomen: The abdomen is soft and non-tender. There are normal bowel sounds heard in all four quadrants and there is no organomegaly palpated. Musculoskeletal: There is no back tenderness noted. Extremities are non-tender with full range of motion. There is good capillary refill. There is no peripheral edema or calf tenderness elicited. Neurological: Patient is alert and oriented to person, place and time. The patient has symmetrical motor strength in all four extremities. Cranial nerves are grossly intact. Deep tendon reflexes are symmetrical and equal in all four extremities. Psychiatric: The patient has an appropriate affect and does not exhibit any anxiety or depression. Triage Information Reviewed: Yes Vital Signs On Initial Exam: Initial Vitals Temp Pulse Resp BP Pulse Ox 97.8 F 62 16 175/97 99 03/29/18 09:42 03/29/18 09:42 03/29/18 09:42 03/29/18 09:42 03/29/18 09:42 Vital Signs Reviewed: Yes Diagnostics - Vital Signs Vital Signs Temp Pulse Resp BP Pulse Ox 03/29/18 09:42 97.8 F 62 16 175/97 99 - Laboratory Result Diagrams: 03/29/18 10:46 03/29/18 10:46 Lab Statement: Any lab studies that have been ordered have been reviewed, and results considered in the medical decision making process. - Radiology CXR Xray Interpretation: No Acute Changes - IMPRESSION: No active cardiopulmonary dz. ED provider has reviewed this report. Radiology Interpretation Completed By: Radiologist - EKG 1046 Cardiac Rate: NL - 56 bpm EKG Rhythm: Sinus Rhythm ST Segment: Normal Ectopy: None EKG Interpretation: no STEMI Re-Evaluation - Re-Evaluation 1 Re-Evaluation Time: 15:18 Comment: Discussing results of 2nd trop with pt and plan to DC. Pt voiced understanding. Course/Dx - Course Course Of Treatment: Ms. Spencer presented with left arm burning pain which woke her during the night. She has no exacerbating or relieving factors and no associated symptoms. She had a recent admission for an intractable headache seemed to be associated with her blood pressure. She took her blood pressure when the pain woke her up and the diastolic was near 100. She presents with normal vital signs but continued left arm burning without a headache. She also has no neck pain. Her exam is unremarkable she had good distal peripheral pulses. Her workup including EKG and delayed troponins was negative. I'm not sure the etiology of her pain I don't think anything dangerous is happening. High on my list is a radicular pain. She has an appointment with Dr. Ardon tomorrow and I recommended she keep that and return for any problems. - Diagnoses Provider Diagnoses: Cervical radiculopathy Discharge - Sign-Out/Discharge Documenting (check all that apply): Patient Departure - DC - Discharge Plan Condition: Stable Disposition: HOME Patient Education Materials: Cervical Radiculopathy (ED) Referrals: Anil William MD [Primary Care Provider] - Ijeoma Ardon MD [Medical Doctor] - 1 Day (Tomorrow (03/30) as scheduled.) Additional Instructions: Follow up with Dr. Ardon as scheduled tomorrow. Please return to the ED if you experience new or worsening symptoms. Follow up with your primary care provider in 2-3 days. - Billing Disposition and Condition Condition: STABLE Disposition: Home - Attestation Statements Document Initiated by Scribe: Yes Documenting Scribe: Karen Melgar Provider For Whom Scribe is Documenting (Include Credential): Dr. Jeffry Saldana MD Scribe Attestation: I, Karen Melgar scribed for Dr. Jeffry Saldana MD on 03/29/18 at 1705. Scribe Documentation Reviewed: Yes Provider Attestation: The documentation as recorded by the Karen valerio accurately reflects the service I personally performed and the decisions made by me, Dr. Jeffry Saldana MD
[2018-03-29 11:04] LABS: ABS Basophils 0.1 10^3/ul (0-0.2); ABS Eosinophils 0 10^3/ul (0-0.6); ABS Lymphocytes 1.5 10^3/ul (1.0-4.8); ABS Monocytes 0.5 10^3/ul (0-0.8); ABS Neutrophils 7.5 10^3/ul (1.5-7.7); ABS Nucleated RBC 0 10^3/ul; Eosinophil % 0.3 % (0-6); Hematocrit 43 % (35-47); Hemoglobin 14.5 g/dl (12.0-16.0); Lymphocyte % 15.7 % (25-47); Mean Corpuscular HGB Conc 34 g/dl (31-36); Mean Corpuscular Hemoglobin 29 pg (27-31); Mean Corpuscular Volume 86 fL (80-97); Mean Platelet Volume 7.3 um3 (7.4-10.4); Nucleated Red Blood Cells % 0; Platelet Count 323 10^3/ul (150-450); Red Blood Count 4.95 10^6/ul (4.00-5.40); Red Cell Distribution Width 14 % (10.5-15); White Blood Count 9.6 10^3/ul (3.5-10.8)
[2018-03-29 11:11] LABS: INR 0.98 (0.77-1.02)
--- NOTE | 2018-03-29 11:14 | RAD ---
HISTORY: CP COMPARISONS: March 17, 2018 VIEWS: 1: frontal portable view of the chest at 11:05 AM FINDINGS: LINES AND TUBES: None. CARDIOMEDIASTINAL SILHOUETTE: The cardiomediastinal silhouette is normal for portable technique. PLEURA: The costophrenic angles are sharp. No pleural abnormalities are noted. LUNG PARENCHYMA: The lungs are clear. ABDOMEN: The upper abdomen is clear. There is no subphrenic gas. BONES AND SOFT TISSUES: No bone or soft tissue abnormalities are noted. IMPRESSION: NO ACTIVE CARDIOPULMONARY DISEASE.
[2018-03-29 11:16] LABS: EGFR Non-African American 63.5 (>60)
[2018-03-29 15:42] VITALS: BP 163/90
== END | disposition home or self-care (01) ==
LOC: ED 09:22
DX: M54.12 Radiculopathy, cervical region (principal); E07.9 Disorder of thyroid, unspecified; R11.0 Nausea; R51 Headache; R21 Rash and other nonspecific skin eruption; R00.1 Bradycardia, unspecified; Z88.2 Allergy status to sulfonamides; Z91.041 Radiographic dye allergy status; M79.602 Pain in left arm; I10 Essential (primary) hypertension; Z88.3 Allergy status to other anti-infective agents
CPT/HCPCS: 36415; 71045; 80053; 83605; 84443; 84484; 85025; 85610; 93005; 99213; 99285; A9270-GY; G0463

== ENCOUNTER 2018-04-08 06:27 | Emergency (ER) | payer MEDICARE ==
--- OUTSIDE RECORDS SUMMARY | 2018-04-08 06:40 | XMS REPORT ---
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 Active Onset: 03/17/2018 Hypothyroidism Keysha Dale M.D. Active Onset: 03/17/2018 Hypertensive urgency Keysha Dale M.D. Active Onset: 01/12/2017 Tricuspid valve disorder, non-rheumatic Ijeoma Ardon M.D. Active Onset: 01/12/2017 Mitral valve disorder Ijeoma Ardon M.D. Active Onset: 01/11/2016 Mixed hyperlipidemia Ijeoma Ardon M.D. Active Onset: 01/11/2016 Essential hypertension Ijeoma Ardon M.D. Active Onset: 12/09/2014 Hyperlipidemia Ijeoma Ardon M.D. Active Onset: 12/09/2014 Aortic valve disorder Ijeoma Bottineau, M.D. 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 Cigarette Use Never Smoked Cigarettes ETOH Use Consumes 1 glass of wine per day Recreational Drug Use Never Used Drugs Smoking Patient is a former smoker quit in 1974, smoked for 8 years Daily Caffeine Consumes on average 1 cup of regular coffee per day Exercise Type/Frequency Exercises regularly Allergies, Adverse Reactions, Alerts Date Description Reaction Status Severity Comments 11/18/2014 Sulfa Antibiotics active 06/27/2016 Iodine active Medications Medication Date Status Form Strength Qnty SIG Indications Ordering Provider Losartan 03/30/ Active Tablets 25mg 30tab take one I10 Brittney Potassium 2018 s tablet oral Thuman, PO daily. [employer] Synthroid 00/ Active Tablets 50mcg 1 by mouth Unknown 0000 every day Aspir-81 / Active Tablets DR 81mg 1 by mouth Unknown 0000 every day Co Q 10 / Active 1200mg 1 po qd prn Unknown 0000 Vitamin D3 / Active Capsules 400Iu 1 by mouth Unknown High Potency 0000 every day Potassium/Magn / Active Tablets 300-300mg daily Unknown esium/Zinc 0000 Cinnamon 00/00/ Active Tablets 500mg 1 po every Unknown 0000 other day Callao 00/00/ Active 1 po qd Unknown 0000 Amlodipine /00/ Active Tablets 5mg 1 tablet po Unknown Besylate 0000 twice daily Sertraline HCL /00/ Active Tablets 25mg as needed Unknown 0000 Promethazine 00/ Active Tablets 25mg as directed Unknown HCL 0000 Atorvastatin 00/ Active Tablets 10mg ( Pt did not Unknown Calcium 0000 start taking this wants cardiology approval) Enalapril 00/00/ Hx Tablets 5mg bid Unknown - 2017 Klonopin /00/ Hx Tablets 0.5mg 1-2 tabs at Unknown 0000 - bedtime as 2015 Vitamin C 00/00/ Hx 1000mg 1 po qd Unknown 0000 Dha Complete / Hx Capsules 200mg occasionally Unknown - 2017 Vitamin B12 /00/ Hx Tablets 100mcg 1 by mouth Unknown 0000 every day Vitamin B-1 0000/ Hx daily Unknown 0000 Vitamin E / Hx 1 po qd Unknown - 2015 Turmeric / Hx daily Unknown - 2017 Vitamin B 6 00/ Hx Unknown 0000 Vital Signs Date Vital Result Comment 03/30/2018 Height 62 inches 5'2" Weight 116.00 lb with sandals BMI (Body Mass Index) 21.2 kg/m2 01/11/2018 Height 62 inches 5'2" Weight 121.50 lb w/o shoes Heart Rate 78 /min BP Systolic Standing 152 mmHg Lue reg cuff BP Diastolic Standing 78 mmHg Lue reg cuff BP Systolic Lying Down 148 mmHg Lue BP Diastolic Lying Down 80 mmHg Lue Respiratory Rate 16 /min Pain Level 4 BMI (Body Mass Index) 22.2 kg/m2 Ejection Fraction 55-60% per last echo 01/201701/12/2017 Height 62 inches 5'2" Weight 127.31 lb without shoes Heart Rate 62 /min BP Systolic Sitting 140 mmHg Rue reg cuff BP Diastolic Sitting 80 mmHg Rue reg cuff BP Systolic Standing 140 mmHg Rue reg cuff BP Diastolic Standing 82 mmHg Rue reg cuff Respiratory Rate 16 /min BMI (Body Mass Index) 23.3 kg/m2 Ejection Fraction 60-65% date 12/03/2014 ECHO 07/05/2016 Height 62 inches 5'2" Weight 127.00 lb Heart Rate 72 /min BP Systolic 138 mmHg BP Diastolic 90 mmHg Respiratory Rate 16 /min Body Temperature 96.9 F BMI (Body Mass Index) 23.2 kg/m2 06/27/2016 Heart Rate 66 /min BP Systolic 142 mmHg BP Diastolic 90 mmHg Respiratory Rate 18 /min Body Temperature 97.8 F 01/11/2016 Height 62 inches 5'2" Weight 127.50 lb w/o shoes Heart Rate 66 /min reg BP Systolic Sitting 116 mmHg Lue, reg cuff BP Diastolic Sitting 80 mmHg Lue, reg cuff BP Systolic Standing 110 mmHg Lue BP Diastolic Standing 84 mmHg Lue Respiratory Rate 16 /min BMI (Body Mass Index) 23.3 kg/m2 Ejection Fraction 60-65% as of 12/03/14 echo 12/09/2014 Height 62 inches 5'2" Weight 134.00 lb Heart Rate 88 /min BP Systolic 130 mmHg Ra reg cuff BP Diastolic 70 mmHg Ra reg cuff BP Systolic Sitting 130 mmHg LA BP Diastolic Sitting 74 mmHg LA BP Systolic Standing 128 mmHg BP Diastolic Standing 70 mmHg Respiratory Rate 16 /min BMI (Body Mass Index) 24.5 kg/m2 Ejection Fraction 60-65% 12/03/14 Results Test Date Test Result H/L Range Note Laboratory test 06/27/2016 Surgical Pathology SEE RESULT BELOW 1 finding 1 SEE RESULT BELOW Name: NATALIIA SPENCER : [address]: Shirley Herrera MD Acct: [id number] Unit: [id number] AGE: 71 Location: [facility] Re06/27/16 SEX: F Status: REG REF SPEC: [id number] RUSLAN: 06/27/16-[address]: Shirley Herrera MD REQ: [id number] RECD: 06/27/16704 STATUS: SOUT _ ORDERED: LEVEL IV COMMENTS: [id number] FINAL DIAGNOSIS Nipple, left, incisional biopsy: -- Benign nipple tissue with no significant pathologic abnormalities. -- No evidence of neoplasia. COMMENT: Clinical and radiologic correlation is recommended. PRE-OPERATIVE DIAGNOSIS Left nipple biopsy, central suture. GROSS DESCRIPTION The specimen is received in formalin labeled, Left Nipple Biopsy, and consists of a 1.4 by up to 0.4 cm rosario-white unoriented skin ellipse excised to a depth of 1.0 cm. There is a suture attached to one long axis, which as per the accompanying requisition designates central; the suture is redesignated 12:00. The specimen is inked as follows : 9:00 half black, 3:00 half blue and 12:00 tip green, serially sectioned from 12:00 to 6 :00 and entirely submitted in cassettes A and B to include ellipse ends in cassette A. Signed (signature on file) Katarina Mckay MD 02/05 1116 END OF REPORT * ML=Testing performed at Main Lab DEPARTMENT OF PATHOLOGY, [address] [place] [address] Mervin Oconnor M.D. Director [facility] # [id number] Procedures Date CPT Code Description Status 03/30/2018 74540 EKG Tracing & Interpretation Completed 03/19/2018 22510 ECHO Transthorasic Realtime 2D W Doppler & Color Flow Completed Hosp 01/23/2018 82107 ECHO Stress Test Incl Perf Contiuous ekg Monitoring Completed W/Phys Superv 01/18/2018 58709 ECHO Transthoracic, Real-Time 2D With Doppler And Color Completed Flow 01/18/2018 92099 ECHO Transthoracic, Real-Time 2D With Doppler And Color Completed Flow 01/11/2018 05925 EKG Tracing & Interpretation Completed 02/14/2017 77185 ECHO Transthoracic, Real-Time 2D With Doppler And Color Completed Flow 01/27/2017 40864 Treadmill Interp/Report Only Completed 01/27/2017 29016 Stress Test Supervsn W/Out I/R Completed 01/27/2017 41888 EKG, Interpretation Only Completed 01/12/2017 68821 EKG Tracing & Interpretation Completed 06/27/2016 82255 Biopsy Breast Incisional Completed 04/08/2016 Mammogram Completed 01/11/2016 31711 EKG Tracing & Interpretation Completed 12/09/2015 Mammogram Completed 12/09/2014 94801 EKG Tracing & Interpretation Completed 12/03/2014 65789 ECHO Transthoracic, Real-Time 2D With Doppler And Color Completed Flow 04/22/2007 25285 Treadmill Interp/Report Only Completed 04/22/2007 27410 Stress Test Supervsn W/Out I/R Completed 04/22/2007 71991 Stress Test Supervsn W/Out I/R Completed 01/12/2004 78047 Stress Test Completed Encounters Type Date Location Provider CPT E/M Dx Office Visit 03/30/2018 2:20p [facility] Dashawn Ardon M.D. 43791 E03.9 Family Life Counselor I10 I35.0 E78.2 Office Visit 03/19/2018 12:18p [facility] Sayda Ardon M.D. 62293 I10 I35.0 Office Visit 03/19/2018 3:42p [facility], Keysha Dale, 01650 I16.0 Hospitalists Adiel R51 E03.9 Office Visit 03/17/2018 3:41p [facility], Keysha Dale, 59290 I16.0 Hospitalists MSarah E03.9 R51 Office Visit 01/11/2018 3:40p [facility] Dashawn Ardno M.D. 14481 I35.0 Family Life Counselor I34.0 R07.9 Office Visit 01/27/2017 2:32p [facility], David Suero, 86843 R07.89 Hospitalists Adiel I16.0 E03.9 Office Visit 01/26/2017 2:31p [facility] [place], [address] R07.89 Assoc, Hospitalists Adiel I16.0 E03.9 Office Visit 01/12/2017 3:30p [facility] Ijeoma Ardon M.D. 42671 R42 I10 I35.0 I34.0 I36.1 Office Visit 01/11/2016 3:45p [facility] Dashawn Ardon M.D. 55063 I35.0 Family Life Counselor I10 E78.2 Office Visit 12/09/2014 3:30p [facility] Of Ijeoma Ardon M.D. 49959 424.1 [facility] 272.4 Office Visit 11/18/2008 10:20a [facility] Anjum Ojeda 16599 721.0 Of Sayda Chun 723.1 Office Visit 01/19/2007 1:00p [facility] Anjum Ojeda, 26165 782.0 Of Sayda Chun Plan of Care 03/30/2018 - Ijeoma Ardno M.D.E03.9 Hypothyroidism, [id number] Essential ( primary) hypertensionNew Medication:Losartan Potassium 25 mgNew Labs:Basic Metabolic PanelLyme Disease SerologyNew Xrays:VL Renal Art Doppler LeftVL Renal Art Doppler RightFollow up:f/u in two weeks with me ( Brittney Holland [facility]) I35.0 Nonrheumatic aortic (valve) [id number] Mixed hyperlipidemia
--- OUTSIDE RECORDS SUMMARY | 2018-04-08 06:40 | XMS REPORT ---
:1945 External Reference #:[id number] Author Organization [facility] Replaced by [facility] Address [address] [place] [address] Phone [phone] Care Team Providers Name Role Phone Anil William M.D. Primary Care Physician Unavailable Payers Type Date Identification Numbers Payment Provider Subscriber Commercial Expires: Policy Number: Niurka LORENZO/BS Nataliia Spencer 2012 [id number] [facility] PayID: [id number] [address] [address] [place] [address] Medigap Part B Effective: 2012 Policy Number: Medicare [place] Nataliia Spencer [id number] PayID: [id number] [address] [address] [place] [address] Medigap Part B Policy Number: [id number] [facility] Nataliia Spencer PayID: [id number] [address] [place] [address] Problems Date Description Provider Status Onset: 02/25/2013 Nonspecific abdominal symptom Maia Thorpe MD Resolved Resolved: 03/12/2014 Family History Date Family Member(s) Problem(s) Comments General Hypertension General Lung Cancer General Skin Cancer Father due to Lung Cancer () Mother due to Skin Cancer () - melanoma, was never in the sun, worked in [employer] in [facility] Number of Children 3 First Son A&W First Son Adopted Second Son A&W Second Son Adopted First Daughter A&W Number of Siblings Siblings: 2 Order Patient is the second of three children Order Patient is the second of three children First Brother A&W First Sister A&W Paternal Grandfather due to in the Holocaust () Paternal Grandmother due to in Holocaust () Maternal Grandfather due to in the Holocaust () Maternal Grandmother due to in the Holocaust () Social History Type Date Description Comments Education Highest level of education completed is a bachelor's degree Marital Status Patient is Living Situation Lives with spouse Diet Diet is healthy and well balanced Occupation 2011 Retired Cigarette Use Former cigarette smoker, smoked a 1/2 a pack a day for 2 years Alcohol Drinks 1 glass of wine a day Smoking Patient is a former smoker Drug Use Denies drug use Daily Caffeine Drinks on average 1 cup of coffee a day Exercise Type/Frequency Current Exercises regularly Seat Belt/Car Seat Always uses a seat belt Currently Active The patient is currently not sexually active STD's No STD history Allergies, Adverse Reactions, Alerts Date Description Reaction Status Severity Comments 04/27/2007 Sulfa active 06/30/2016 Iodine Hives,Elevated B/P,Heart Rate active Medications Medication Date Status Form Strength Qnty SIG Indications Ordering Provider Gracia 10/24 Active Packet 4gm 30uni 1 by mouth [place] ts every day MD Paulie Meclizine HCL 04/12 Active Tablets 25mg 14tab take 1 Mid, s tablet by Anil, mouth three M.D. times a day if needed for dizziness Aspirin Adult Low 02/24 Active Tablets 81mg [address] every day Co Q-10 Active Unknown /0000 Zinc Magnesium Active Unknown Potassium Active Unknown / Vitamin D Active Unknown / Vitamin B Complex Active Unknown / Aspirin Active Unknown / Cinnamon Active Unknown / Grape Seed Extract Active Unknown / Melatonin Active Capsules 5mg Unknown / Enalapril Maleate Active Tablets 5mg 1 po bid Unknown Levothyroxine Active Tablets 75mcg 1 by mouth Unknown every day Clonazepam Active Unknown / Terazol 7 09/22 Hx Cream 0.4% 45gm one applicator Yulissa Gruberly M.D. 10/25 qHS x nights [place]cort 09/22 Hx Ointment 0.2% 45gm apply Dv externally Yulissa Gruber to effected M.DDelma 10/25 area twice a day as needed up to 2 weeks Ciprofloxacin HCL 02/25 Hx Tablets 500mg 6tabs 1 tablet Maia every 12 Nikkhah - hours Maurilio, 03/11 Vasotec / Hx Tablets 10mg - 09/22 Hydrochlorothiazid Hx Tablets 25mg 30tab 1 PO qd Unknown e s - 07/24 Levoxyl Hx Tablets 75mcg 30tab 1 PO qd s - 04/29 Synthroid / Hx - 05/05 Levoxyl Hx 0.5mcg - 10/23 Clonazepam / Hx - 08/14 Enalapril Maleate / Hx 10mg - 08/14 Vitamin E Hx - 08/14 Medications Administered in Office Medication Date Status Form Strength Qnty SIG Indications Ordering Provider PT SCRN Tbco Administered Injection Arlet Id as Non User 018 MD Rufino Vital Signs Date Vital Result Comment 11/30/2017 BP Systolic 120 mmHg BP Diastolic 84 mmHg Height 62.5 inches 5'2.50" Weight 126.00 lb BMI (Body Mass Index) 22.7 kg/m2 Last Menstrual Period [id number] 1 Parity 1 10/31/2017 BP Systolic 122 mmHg BP Diastolic 78 mmHg Height 62.5 inches 5'2.50" Weight 123.00 lb BMI (Body Mass Index) 22.1 kg/m2 1 Parity 1 04/20/2017 BP Systolic 138 mmHg BP Diastolic 80 mmHg Height 63.25 inches 5'3.25" Weight 125.00 lb BMI (Body Mass Index) 22.0 kg/m2 Last Menstrual Period [id number] 1 Parity 1 03/14/2016 BP Systolic 100 mmHg BP Diastolic 74 mmHg Height 63.25 inches 5'3.25" Weight 126.00 lb BMI (Body Mass Index) 22.1 kg/m2 09/23/2015 BP Systolic 148 mmHg BP Diastolic 88 mmHg Height 63.25 inches 5'3.25" Weight 131.00 lb BMI (Body Mass Index) 23.0 kg/m2 Last Menstrual Period 0727320 1 Parity 1 11/19/2014 BP Systolic 124 mmHg BP Diastolic 85 mmHg Height 63.25 inches 5'3.25" Weight 136.00 lb BMI (Body Mass Index) 23.9 kg/m2 Last Menstrual Period 6739776 1 Parity 1 03/12/2014 BP Systolic 134 mmHg BP Diastolic 84 mmHg Height 63.25 inches 5'3.25" Weight 134.00 lb BMI (Body Mass Index) 23.5 kg/m2 Last Menstrual Period 3253638 1 Parity 1 10/23/2013 BP Systolic 150 mmHg BP Diastolic 90 mmHg Height 63.25 inches 5'3.25" Weight 137.00 lb BMI (Body Mass Index) 24.1 kg/m2 1 Parity 1 09/04/2013 BP Systolic 144 mmHg BP Diastolic 80 mmHg Height 63.25 inches 5'3.25" Weight 135.00 lb BMI (Body Mass Index) 23.7 kg/m2 1 Parity 1 05/14/2013 BP Systolic 138 mmHg BP Diastolic 80 mmHg Height 63.25 inches 5'3.25" Weight 132.00 lb BMI (Body Mass Index) 23.2 kg/m2 1 Parity 1 03/11/2013 BP Systolic 138 mmHg BP Diastolic 96 mmHg Height 63.25 inches 5'3.25" Weight 134.00 lb BMI (Body Mass Index) 23.5 kg/m2 1 Parity 1 02/25/2013 BP Systolic 138 mmHg BP Diastolic 84 mmHg Height 63.25 inches 5'3.25" Weight 136.00 lb BMI (Body Mass Index) 23.9 kg/m2 1 Parity 1 03/05/2012 BP Systolic 100 mmHg BP Diastolic 72 mmHg Height 63 inches 5'3" Weight 135.00 lb BMI (Body Mass Index) 23.9 kg/m2 1 Parity 1 12/22/2010 BP Systolic 150 mmHg BP Diastolic 86 mmHg BP Systolic Recheck 148 mmHg 150/90 after exam BP Diastolic Recheck 86 mmHg 150/90 after exam Height 63 inches 5'3" Weight 138.00 lb BMI (Body Mass Index) 24.4 kg/m2 1 Parity 1 05/05/2009 BP Systolic 134 mmHg BP Diastolic 76 mmHg Weight 140.00 lb 02/20/2009 BP Systolic 138 mmHg BP Diastolic 80 mmHg Height 64 inches 5'4" Weight 137.00 lb BMI (Body Mass Index) 23.5 kg/m2 Last Menstrual Period 0 2005 1 Parity 1 04/29/2008 BP Systolic 122 mmHg BP Diastolic 80 mmHg Height 64 inches 5'4" Weight 137.00 lb BMI (Body Mass Index) 23.5 kg/m2 Last Menstrual Period 0 04/27/2007 BP Systolic 112 mmHg BP Diastolic 64 mmHg Height 64 inches 5'4" Weight 137.00 lb BMI (Body Mass Index) 23.5 kg/m2 Last Menstrual Period [id number] 1 Parity 1 Results Test Date Test Result H/L Range Note Urine Culture And 10/31/2017 Urine Culture SEE RESULT BELOW 1 Sensitivities Laboratory test finding 10/31/2017 Vitamin B12 296 pg/mL 180-914 2, 3 Vitamin D Total 25(Oh) 34.4 ng/mL 20-50 2 TSH 1.31 mcIU/mL 0.34-5.60 2 T4 Free 1.21 ng/dL High 0.61-1.12 2 Celiac Panel 10/31/2017 Tissue Transglutaminase IgA Ab <1.2 U/mL 2, 4 Immunoglobulin A 133 mg/dL 61 - 356 2 Celiac Interpretation See Comment 2, 5 Laboratory test finding 09/23/2015 Culture Genital & SEE RESULT BELOW 6 Sensitivity Human Papilloma Virus 03/12/2013 Human Papillomavirus Source See Comment 7 Human Papillomavirus High Risk Negative Negative 8 Laboratory test finding 03/11/2013 Cytology RUN DATE: SEE NOTE> 9 Laboratory test finding 03/05/2012 Cytology <SEE NOTE> 10 Laboratory test finding 12/22/2010 Cytology <SEE NOTE> 11 Laboratory test finding 05/05/2009 Cytology <SEE NOTE> 12 Laboratory test finding 04/29/2008 Cytology <SEE NOTE> 13 Laboratory test finding 04/27/2007 Cytology <SEE NOTE> 14 1 SEE RESULT BELOW Name: NATALIIA SPENCER : [address]: Arlet Joy MD Acct: [id number] Unit: [id number] AGE: 72 Location: [facility] Re10/31/17 SEX: F Status: REG REF SPEC: [id number] RUSLAN: 10/31/17-[address]: Arlet Joy MD REQ: [id number] RECD: 10/31/17579 STATUS: COMP _ SOURCE: URINE SPDESC: ORDERED: Urine Culture Procedure Result Reported Site Urine Culture Final 11/02/17- 0948 ML No growth of clinically significant organisms * - [facility] . END OF REPORT DEPARTMENT OF PATHOLOGY, [address] [place] [address] Mervin Oconnor M.D. Director [facility] # [id number] 2 message left to retrun phone call. pelon 3 Normal Range 180 to 914 Indeterminate Range 145 to 180 Deficient Range <145 4 REFERENCE VALUE <4.0 (Negative) Test Performed by: [place] [address] 5 Negative serology. Celiac disease unlikely. However, approximately 10% of patients with celiac disease are seronegative. Also, patients who are already adhering to a gluten-free diet may be seronegative. If celiac disease is highly clinically suspected, consider HLA-DQ typing. Test Performed by: [place] [address] 6 SEE RESULT BELOW Name: NATALIIA SPENCER : [address]: Carmen Gruber MD Acct: [id number] Unit: [id number] AGE: 70 Location: [facility] Re09/23/15 SEX: F Status: REG REF SPEC: [id number] RUSLAN: 09/23/15-7 [facility] DR: Carmen Gruber MD REQ: [id number] RECD: 09/23/15 STATUS: COMP _ SOURCE: VAGINAL SPDESC: ORDERED: Genital Culture Procedure Result Reported Site Genital Culture Final 09/25/15- 7455 ML Organism 1 NORMAL LALA Quantity 3+ * ML - MAIN LAB ([facility]) . END OF REPORT * ML=Testing performed at Main Lab DEPARTMENT OF PATHOLOGY, [address] [place] [address] Mervin Oconnor M.D. Director [facility] # [id number] RESULT: Ectocervical/Endocervical 8 For types 16, 18, 31, 33, 35, 39, 45, 51, 52, 56, 58, 59 and 68. Test Performed by: [facility] - [address] [address] Puncher And Fastener: Osman Lockwood III, M.D. 9 RUN DATE: 03/12/13 [facility] LIVE PAGE 1 RUN TIME: [address] [place] [address] Specimen Inquiry Name: NATALIIA SPENCER : [address]: Maia Thorpe Acct: [id number] Unit: [id number] AGE: 67 Location: [facility] Re03/11/13 SEX: F Status: REG REF SPEC: [id number] RUSLAN: 03/11/13-1554 [facility] DR: Maia Thorpe MD REQ: [id number] RECD: 03/12/137710 STATUS: SOUT _ ORDERED: IMAGE ANALYSIS, HPV / Thin Prep FINAL DIAGNOSIS Negative for Intraepithelial lesion or Malignancy COMMENTS: Specimen sent to [facility] in [place], [place] on 03/12/13 by [id number] at 1345. Results will be reported separately. A. Ectocervical/Endocervical Specimen Adequacy: Satisfactory of evaluation Transformation zone component identified Patient Information: HPV: High risk HPV DNA testing regardless of pap results. Actual Specimen Date: 03/11/13 LMP If Unknown: 2004 Date of Last Specimen: 03/05/12 Post Menopausal?: Y Signed (signature on file) Karen Fry RAFA (ASCP) 03/12/13 1348 This Pap test was evaluated with the assistance of the IDRI ([facility])Prep Test Imaging System. Due to cytologic findings at the teaching music lessons microscope, comprehensive manual rescreening by a Barrel Leveler may be required. The Pap Smear is a screening test designed to aid in the detection of premalignant and malignant conditions of the uterine cervix. It is not a diagnostic procedure and should not be used as the sole means of detecting cervical cancer. Both false- positive and false- negative reports do occur. Depending on your risk status, a Pap smear shoudl be obtained and evaluated every 1-3 years. END OF REPORT * ML=Testing performed at Main Lab DEPARTMENT OF PATHOLOGY, [address] [place] [address] Mervin Oconnor M.D. Director [facility] Permit #[id number] 10 ---- RUN DATE: 03/06/12 [facility] LIVE PAGE 1 RUN TIME: 1220 Specimen Inquiry RUN USER: INTERFACE -- Name: NATALIIA SPENCER Status: REG REF Re03/05/12 Age/Sex: 66/F Unit#: [id number] Location: [facility]. : [birth year] -- Specimen: [id number] SOUT Spec Date:03/05/12-[address] [facility] [address]: Piper trevino CNP Spec Type: CYTOLOGY Received:03/06/12 Copies to: SOURCE ECTOCERVICAL/ENDOCERVICAL Thin Prep with Reflex HPV Test PATIENT INFORMATION ACTUAL COLLECTION DATE: 03/05/12 POST MENOPAUSAL? Yes DATE OF PRIOR SPECIMEN: 12/22/10 ADEQUACY OF SPECIMEN Satisfactory for evaluation * Transformation zone component not identified * DIAGNOSIS NEGATIVE FOR INTRAEPITHELIAL LESION OR MALIGNANCY * This Pap test was evaluated with the assistance of the IDRI ([facility])Prep Pap Test Imaging System. The Pap Smear is a screening test designed to aid in the detection of premalign ant and malignant conditions of the uterine cervix. It is not a diagnostic procedure a nd should not be used as the sole means of detecting cervical cancer. Both false- positiv e and false-negative reports do occur. Depending on your risk status, a Pap smear abebe uld be obtained and evaluated every one to three years. Initial evaluation performed by Franki PARKER([facility]) 03/06/12 Final Interpretation electronically signed by: Franki PARKER([facility]) 03/06/12 1219 -- -- DEPARTMENT OF PATHOLOGY, [address] [place] [address] [facility] Permit #[id number] Mervin Oconnor M.D. Director Adiel Brewer -- 11 ---- RUN DATE: 12/23/10 [facility] NMI LIVE PAGE 1 RUN TIME: 1521 Specimen Inquiry RUN USER: INTERFACE -- Name: NATALIIA SPENCER Status: REG REF Re12/22/10 Age/Sex: 65/F Unit#: [id number] Location: [facility] : [birth year] -- Specimen: [id number] SOUT Spec Date: 12/22/[address]: Piper Dutton mp AUDITING MANAGER Spec Type: CYTOLOGY Received: 12/23/10-1230 Copies to: SOURCE ECTOCERVICAL/ENDOCERVICAL Thin Prep with Reflex HPV Test PATIENT INFORMATION ACTUAL COLLECTION DATE: 12/22/10 ? No POST MENOPAUSAL? Yes DATE OF PRIOR SPECIMEN: 05/23/09 ADEQUACY OF SPECIMEN Satisfactory for evaluation * Transformation zone component not identified * DIAGNOSIS NEGATIVE FOR INTRAEPITHELIAL LESION OR MALIGNANCY * This Pap test was evaluated with the assistance of the ThinPrep Pap Test Imaging System. The Pap Smear is a screening test designed to aid in the detection of premalign ant and malignant conditions of the uterine cervix. It is not a diagnostic procedure a nd should not be used as the sole means of detecting cervical cancer. Both false- positiv e and false-negative reports do occur. Depending on your risk status, a Pap smear abebe uld be obtained and evaluated every one to three years. Final Interpretation electronically signed by: Carmen FRY([facility]) 12/23/10 152 0 -- -- DEPARTMENT OF PATHOLOGY, [address] [place] [address] [facility] Permit #[id number] Mervin Oconnor M.D. Director Jessica Solitario M.D. Talent Consultant Dir giraldo -- 12 ---- RUN DATE: 05/06/09 [facility] NMI LIVE PAGE 1 RUN TIME: 1447 Specimen Inquiry RUN USER: INTERFACE -- Name: NATALIIA SPENCER Status: REG REF Re05/05/09 Age/Sex: 64/F Unit#: [id number] Location: [facility] : [birth year] -- Specimen: [id number] SOUT Spec Date: 05/05/[address]: Arlet gregory MD Spec Type: CYTOLOGY Received: 05/06/09-1116 Copies to: SOURCE ECTOCERVICAL/ENDOCERVICAL Thin Prep with Reflex HPV Test PATIENT INFORMATION ACTUAL COLLECTION DATE: 05/05/09 DATE OF PRIOR SPECIMEN: 04/29/08 ADEQUACY OF SPECIMEN Satisfactory for evaluation * Transformation zone component not identified * DIAGNOSIS NEGATIVE FOR INTRAEPITHELIAL LESION OR MALIGNANCY * This Pap test was evaluated with the assistance of the ThinPrep Pap Test Imaging System. The Pap Smear is a screening test designed to aid in the detection of premalign ant and malignant conditions of the uterine cervix. It is not a diagnostic procedure a nd should not be used as the sole means of detecting cervical cancer. Both false- positiv e and false-negative reports do occur. Depending on your risk status, a Pap smear abebe uld be obtained and evaluated every one to three years. Final Interpretation electronically signed by: Carmen FRY([facility]) 05/06/09 144 6 -- -- DEPARTMENT OF PATHOLOGY, [address] [place] [address] [facility] Permit #[id number] Adiel Jimenez M.D. Talent Consultant Dir giraldo -- 13 ---- RUN DATE: 04/30/08 [facility] NMI LIVE PAGE 1 RUN TIME: 1223 Specimen Inquiry RUN USER: INTERFACE -- Name: NATALIIA SPENCER Status: REG REF Re04/29/08 Age/Sex: 63/F Unit#: [id number] Location: [facility]. : [birth year] -- Specimen: [id number] SOUT Spec Date: 04/29/[address]: Arlet gregory MD Spec Type: CYTOLOGY Received: 04/30/08-906 Copies to: SOURCE ECTOCERVICAL/ENDOCERVICAL Thin Prep with Reflex HPV Test PATIENT INFORMATION ACTUAL COLLECTION DATE: 04/29/08 POST MENOPAUSAL? Yes DATE OF PRIOR SPECIMEN: 04/27/07 ADEQUACY OF SPECIMEN Satisfactory for evaluation * Transformation zone component identified * DIAGNOSIS NEGATIVE FOR INTRAEPITHELIAL LESION OR MALIGNANCY * This Pap test was evaluated with the assistance of the ThinPrep Pap Test Imaging System. The Pap Smear is a screening test designed to aid in the detection of premalign ant and malignant conditions of the uterine cervix. It is not a diagnostic procedure a nd should not be used as the sole means of detecting cervical cancer. Both false- positive and false-negative reports do occur. Depending on your risk status, a Pap smear abebe uld be obtained and evaluated every one to three years. Final Interpretation electronically signed by: Franki PARKER([facility]) 04/30/08 1223 -- -- DEPARTMENT OF PATHOLOGY, [address] [place] [address] [facility] Permit #[id number] Mervin Oconnor M.D. Director of Laboratories -- 14 ---- RUN DATE: 05/02/07 [facility] NMI LIVE PAGE 1 RUN TIME: 954 Specimen Inquiry RUN USER: INTERFACE [id number] NATALIIA SPENCER 62/F <REG REF 04/27> ([id number]) KELSEY Rivera MD,Deya Godinez -- Specimen: [id number] SOUT Spec Date: 04/27/[address]: Deya martin MD Spec Type: CYTOLOGY Received: 04/30/07-1243 Copies to: SOURCE ECTOCERVICAL/ENDOCERVICAL Thin Prep with Reflex HPV Test PATIENT INFORMATION ACTUAL COLLECTION DATE: 04/27/07 POST MENOPAUSAL? Yes PREVIOUS ABNORMAL PAP SMEARS No LAST MENSTRUAL PERIOD: 04/23/05 PATIENT HISTORY: Unknown ADEQUACY OF SPECIMEN Satisfactory for evaluation * Transformation zone component identified * DIAGNOSIS NEGATIVE FOR INTRAEPITHELIAL LESION OR MALIGNANCY * This Pap test was evaluated with the assistance of the ThinPrep Pap Test Imaging System. The Pap Smear is a screening test designed to aid in the detection of premalign ant and malignant conditions of the uterine cervix. It is not a diagnostic procedure a nd should not be used as the sole means of detecting cervical cancer. Both false- positive and false-negative reports do occur. Depending on your risk status, a Pap smear abebe uld be obtained and evaluated every one to three years. Final Interpretation electronically signed by: Franki PARKER([facility]) 05/02/07 0955 -- -- DEPARTMENT OF PATHOLOGY, [address] [place] [address] [facility] Permit #[id number] Mervin Oconnor M.D. Director of Laboratories Christian Graves II Pathologist -- Procedures Date CPT Code Description Status Comment 11/30/2017 91906 Echography Transvaginal Completed 07/24/2015 Mammogram Completed 11/19/2014 90324 Echography Transvaginal Completed 09/04/2013 78325 Echography Transvaginal Completed 05/13/2013 20666 Echography Transvaginal Completed 03/24/2013 Colonoscopy Completed repeat 10 years 03/11/2013 23149 Echography Transvaginal Completed Encounters Type Date Location Provider CPT E/M Dx Office Visit 11/30/2017 3:45p [place] [address] D25.9 Office Visit 04/20/2017 1:30p [facility] Office Carmen Gruber M.D. 00483 Z01.419 Office Visit 03/14/2016 11:30a [facility] Carmen Gruber M.D. 30801 Z01.411 N64.53 Office Visit 09/23/2015 10:40a [facility] Carmen Gruber M.D. 05721 B37.3 Office Visit 11/19/2014 3:30p [facility] Carmen Gruber M.D. 79375 789.9 Office Visit 03/12/2014 12:00p [facility] Carmen Gruber M.D. 65667 V72.31 V76.2 V15.89 Office Visit 10/23/2013 11:30a [facility] Carmen Gruber M.D. 87489 620.2 Office Visit 09/04/2013 1:00p [place] [address] 789.04 Office Visit 05/14/2013 11:30a [place] [address] 789.9 Office Visit 03/11/2013 3:30p [place] [address] V72.31 V76.2 V15.89 611.79 789.9 Office Visit 02/25/2013 9:00a [place] [address] 789.00 788.69 789.9 Office Visit 03/05/2012 1:20p [facility] FIDENCIO Mackay-C 42256 V72.31 V76.2 Office Visit 12/22/2010 3:40p [facility] DUANE MackayC 99190 V72.31 V76.2 Office Visit 05/05/2009 1:20p [place] [address] V72.31 V76.2 Office Visit 02/20/2009 8:40a [facility] DUANE MackayC 19133 616.10 Office Visit 04/29/2008 10:40a [place] [address] V72.31 V76.2 Office Visit 04/27/2007 10:20a [facility] Deya Rivera M.D. 27261 V72.31 V77.1 V78.0 V76.2 V76.41 627.3 Plan of Care Future Appointment(s):05/03/2018 1:30 pm - Arlet Joy MD at [facility]11/30/2017 - Arlet Joy, MDD25.9 Leiomyoma of uterus, unspecifiedComments:Pt reassured left lower quadrant occasional discomfort does not appear to be related to calcified small fibroid or ovarian in nature. Pt is followed by GI but this may end up being IBS related. PT reassured regarding findings on pelvic US.
--- OUTSIDE RECORDS SUMMARY | 2018-04-08 06:40 | XMS REPORT ---
:1945 External Reference #:[id number] Author Organization [facility] Address [address] [place] [address] Phone [phone] Care Team Providers Name Role Phone Anil William MD Care Team Information Player Services Representative Unavailable Anil William MD Primary Care Physician Unavailable Payers Type Date Identification Numbers Payment Provider Subscriber Medicare Primary Effective: Policy Number: Medicare Nataliia Spencer 2012 [id number] PayID: [id number] [address] [place] [address] [facility] Part B Policy Number: [id number] [facility] Nataliia Spencer PayID: [id number] [address] [place] [address] Problems Date Description Provider Status Onset: 03/17/2018 [...] Active Onset: 12/09/2014 Aortic valve disorder Ijeoma Swift, M.D. 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 Cigarette Use Never Smoked Cigarettes ETOH Use [...] 2018 s tablet oral Thuman, PO daily. 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 Synthroid 00/ Active Tablets 50mcg 1 by [...] 1 po every Unknown 0000 other day [place] 00/00/ Active 1 po qd Unknown 0000 [...] NATALIIA SPENCER : [address]: Shirley Herrear MD Acct: [id number] Unit: [id number] AGE: 71 Location: [facility] Re06/27/16 SEX: F Status: REG REF SPEC: [id number] RUSALN: 06/27/16-[address]: Shirley Herrera MD REQ: [id number] RECD: 06/27/16707 STATUS: SOUT _ ORDERED: LEVEL IV COMMENTS: [id number] FINAL DIAGNOSIS Nipple, left, incisional biopsy: -- [...] performed at Main Lab DEPARTMENT OF PATHOLOGY, [address] [place] [address] Mervin Oconnor M.D. Director [facility] # [id number] Procedures Date CPT Code Description Status 03/30/2018 09401 EKG Tracing & Interpretation Completed 03/19/2018 56213 ECHO Transthorasic Realtime 2D W Doppler & Color Flow Completed Hosp 01/23/2018 56670 ECHO Stress Test Incl Perf Contiuous ekg Monitoring Completed W/Phys Superv 01/18/2018 36572 ECHO Transthoracic, Real-Time 2D With Doppler And Color Completed Flow 01/18/2018 71258 ECHO Transthoracic, Real-Time 2D With Doppler And Color Completed Flow 01/11/2018 96598 EKG Tracing & Interpretation Completed 02/14/2017 96436 ECHO Transthoracic, Real-Time 2D With Doppler And Color Completed Flow 01/27/2017 11986 Treadmill Interp/Report Only Completed 01/27/2017 22844 Stress Test Supervsn W/Out I/R Completed 01/27/2017 84132 EKG, Interpretation Only Completed 01/12/2017 85636 EKG Tracing & Interpretation Completed 06/27/2016 83637 Biopsy Breast Incisional Completed 04/08/2016 Mammogram Completed 01/11/2016 21231 EKG Tracing & Interpretation Completed 12/09/2015 Mammogram Completed 12/09/2014 51642 EKG Tracing & Interpretation Completed 12/03/2014 55985 ECHO Transthoracic, Real-Time 2D With Doppler And Color Completed Flow 04/22/2007 75917 Treadmill Interp/Report Only Completed 04/22/2007 32537 Stress Test Supervsn W/Out I/R Completed 04/22/2007 12363 Stress Test Supervsn W/Out I/R Completed 01/12/2004 66599 Stress Test Completed Encounters Type Date Location Provider CPT E/M Dx Office Visit 03/30/2018 2:20p [facility] Dashawn Ardon M.D. 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 13292 I10 I35.0 Office Visit 03/19/2018 3:42p [facility], [place], 46258 I16.0 Hospitalists Adiel R51 E03.9 Office Visit 03/17/2018 3:41p [facility], [place], 34777 I16.0 Hospitalists MSarah E03.9 R51 Office Visit 01/11/2018 3:40p [facility] Dashawn Ardon M.D. 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 01473 R42 I10 I35.0 I34.0 I36.1 Office Visit 01/11/2016 3:45p [facility] Dashawn Ardon M.D. 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 00350 424.1 [facility] 272.4 Office Visit 11/18/2008 10:20a [facility] Anjum Ojeda, 07396 721.0 Of Sayda Chun 723.1 Office Visit 01/19/2007 1:00p [facility] Anjum Ojeda, 28352 782.0 Of Sayda Chun Plan of Care Future Appointment(s):04/17/2018 2:30 pm - Brittney Holland NP at [facility]03/30/2018 - Ijeoma Ardon M.D.E03.9 Hypothyroidism, ecutgxeurikF35 Essential (primary) hypertensionNew Medication:Losartan Potassium 25 mgNew Labs:Basic Metabolic PanelLyme Disease SerologyNew Xrays:VL Renal Art Doppler LeftVL Renal Art Doppler RightFollow up:f/u in two weeks with me ( Brittney Holland FACILITY SECURITY OFFICER-)I35.0 Nonrheumatic aortic (valve) eqcvbepuG14.2 Mixed hyperlipidemia
--- NOTE | 2018-04-08 07:33 | ED ---
Headache - HPI Summary HPI Summary: This patient is a 73 year old F presenting to [facility] accompanied by friend with a chief complaint of sharp, sudden, frontal headache that began yesterday. The patient rates the pain 6/10 in severity. Symptoms aggravated by nothing. Symptoms alleviated by blood pressure and anxiety medications. Patient reports anxiety and general bruising. Patient denies double vision, blurred vision, sore throat, neck pain, CP, abd pain, back pain, dysuria, hematuria, bilateral lower extremity edema, nausea, vomiting, and diarrhea. Patient states she was seen here one month ago for a similar headache. - History Of Current Complaint Chief Complaint: EDHeadache Stated Complaint: HEADACHE Hx Obtained From: Patient Onset/Duration: Sudden Onset, Started days ago, Still Present Initially Headache Was: Severe Currently Pain Is: Current Pain Scale(0-10)= - 4, Moderate Timing: Constant Character: Sharp Location of Headache: Frontal Aggravating Factor: Nothing Allevating Factors: Medication Associated Signs And Symptoms: Other (Noted In Comments) - Negative nausea and vomiting - Allergies/Home Medications Allergies/Adverse Reactions: Allergies Allergy/AdvReac Type Severity Reaction Status Date / Time Iodinated Contrast- Oral and Allergy Hives Verified 04/08/18 06:32 IV Dye Iodine and Iodide Containing Allergy Hives Verified 04/08/18 06:32 Produc Sulfa (Sulfonamide Allergy Hives Verified 04/08/18 06:32 Antibiotics) Home Medications: Home Medications Hydralazine HCl 1 tab PO TID 04/08/18 [History Confirmed 04/08/18] PMH/Surg Hx/FS Hx/Imm Hx Previously Healthy: No Endocrine/Hematology History: Reports: Hx Thyroid Disease Denies: Hx Diabetes Cardiovascular History: Reports: Hx Angina, Hx Hypercholesterolemia, Hx Hypertension Denies: Hx Coronary Artery Disease, Hx Myocardial Infarction, Hx Pacemaker/ ICD Respiratory History: Denies: Hx Asthma, Hx Chronic Obstructive Pulmonary Disease (COPD) History: Denies: Hx Dialysis, Hx Renal Disease Musculoskeletal History: Denies: Hx Rheumatoid Arthritis, Hx Osteoporosis Sensory History: Reports: Hx Contacts or Glasses Denies: Hx Hearing Aid Opthamlomology History: Reports: Hx Contacts or Glasses Psychiatric History: Denies: Hx Panic Disorder - Cancer History Hx Chemotherapy: No Hx Radiation Therapy: No - Surgical History Surgery Procedure, Year, and Place: APPENDECTOMY - Infectious Disease History: No Infectious Disease History: Denies: Traveled Outside the [place] in Last 30 Days - Family History Known Family History: Positive: Hypertension Negative: Cardiac Disease - Social History Occupation: Retired Lives: With Family Alcohol Use: Occasionally Hx Substance Use: No Substance Use Type: Reports: None Hx Tobacco Use: No Smoking Status (MU): Never Smoked Tobacco Review of Systems Negative: Fever Negative: Blurred Vision, Diplopia Negative: Sore Throat Negative: Chest Pain Negative: Abdominal Pain, Vomiting, Diarrhea, Nausea Negative: dysuria, hematuria Positive: Other - Negative neck pain. Negative: Edema Positive: Bruising Positive: Headache Positive: Anxious All Other Systems Reviewed And Are Negative: No Physical Exam - Summary Physical Exam Summary: Appearance: Alert, conversive, nontoxic appearing Skin: Warm, dry, no mottling, no rashes, no contusions HEENT: EOMI, PERRL, moist mucous membranes Neck: No masses on the neck, supple Respiratory: Clear to auscultation, breath sounds present, no rales, no rhonchi , no wheezes Cardiovascular: RRR, pulses are symmetrical in both lower and upper extremities Abdomen: Soft, non-tender Bowel Sounds: Present Musculoskeletal: No CVA tenderness, no obvious deformity, moving all extremities in a grossly normal manner Neurological: A&Ox3, CN II-XII Intact, moving all extremities symmetrically Psychiatric: Normal affect and mood Triage Information Reviewed: Yes Vital Signs On Initial Exam: Initial Vitals Temp Pulse Resp BP Pulse Ox 97.5 F 63 16 169/101 99 04/08/18 06:28 04/08/18 06:28 04/08/18 06:28 04/08/18 06:28 04/08/18 06:28 Vital Signs Reviewed: Yes Diagnostics - Vital Signs Vital Signs Temp Pulse Resp BP Pulse Ox 04/08/18 06:50 60 178/98 98 04/08/18 06:28 97.5 F 63 16 169/101 99 - Laboratory Result Diagrams: 04/08/18 07:52 04/08/18 07:52 Lab Statement: Any lab studies that have been ordered have been reviewed, and results considered in the medical decision making process. Re-Evaluation - Re-Evaluation First Eval Re-Evaluation Time: 08:26 Change: Unchanged Comment: I updated the patient on her results. She is starting to recieve her medications. Second Eval Re-Evaluation Time: 09:30 Change: Improved Comment: Pt reports her symptoms have improved Headache Course/Dx - Course Course Of Treatment: This patient is a 73 year old F presenting to [facility] accompanied by friend with a chief complaint of sudden, frontal headache that began yesterday. Patient states she was seen here one month ago for a similar headache. Physical Exam Findings: Nml. Blood work obtained. In the ED course the patient was given Compazine, fluids, Toradol, and Benadryl. Patient will be discharged with follow up from PCP. The patient is agreeable with this plan. - Diagnoses Provider Diagnoses: Headache, Hypertension Discharge - Sign-Out/Discharge Documenting (check all that apply): Patient Departure - Discharge home - Discharge Plan Condition: Stable Disposition: HOME Patient Education Materials: Acute Headache (ED), Hypertension (ED) Referrals: Anil William MD [Primary Care Provider] - Additional Instructions: Please follow up with your primary care physician. Keep your appt with your doctor on . Discuss your high blood pressure and your recurrent headaches. return if worse or any new symptoms. Take all medications as previously instructed. - Attestation Statements Document Initiated by Scribe: Yes Documenting Scribe: Jazmine [place] Provider For Whom Scribe is Documenting (Include Credential): Odessa Loya MD Scribe Attestation: Jazmine Ray, scribed for Odessa Loya MD on 04/08/18 at 1102.
[2018-04-08] MEDS ORDERED: PROCHLORPERAZINE INJ 5 MG/ML 2 ML VIAL IV ONE (07:39)
[2018-04-08] MEDS ORDERED: diPHENhydraMINE IV* 50 MG/ML 1 ml VIAL (BENADRYL) IV ONE (07:40)
[2018-04-08] MEDS ORDERED: Ketorolac INJ* 30 MG/ML 1 ML VIAL IV PUSH ONE (07:41)
[2018-04-08] MEDS ORDERED: NS 0.9% 500 ML* 500 ML IV ONE (07:42)
[2018-04-08 08:11] LABS: ABS Basophils 0 10^3/ul (0-0.2); ABS Eosinophils 0 10^3/ul (0-0.6); ABS Lymphocytes 1.6 10^3/ul (1.0-4.8); ABS Monocytes 0.7 10^3/ul (0-0.8); ABS Neutrophils 4.7 10^3/ul (1.5-7.7); ABS Nucleated RBC 0 10^3/ul; Eosinophil % 0.7 % (0-6); Hematocrit 42 % (35-47); Hemoglobin 14.4 g/dl (12.0-16.0); Lymphocyte % 22.3 % (25-47); Mean Corpuscular HGB Conc 34 g/dl (31-36); Mean Corpuscular Hemoglobin 30 pg (27-31); Mean Corpuscular Volume 86 fL (80-97); Mean Platelet Volume 7.3 um3 (7.4-10.4); Nucleated Red Blood Cells % 0; Platelet Count 318 10^3/ul (150-450); Red Blood Count 4.86 10^6/ul (4.00-5.40); Red Cell Distribution Width 14 % (10.5-15)
[2018-04-08 08:21] LABS: EGFR Non-African American 58.7 (>60)
[2018-04-08 09:47] VITALS: BP 140/87
== END 2018-04-08 09:46 | disposition home or self-care (01) ==
LOC: ED 06:27
CPT/HCPCS: 36415; 80053; 85025; 86140; J0780; J1200; J1885

== ENCOUNTER 2018-04-27 20:48 | Emergency (ER) | payer MEDICARE ==
--- OUTSIDE RECORDS SUMMARY | 2018-04-27 21:15 | XMS REPORT ---
:1945 External Reference #:[id number] Author Organization [employer] Address [address] [place] [address] Phone [phone] Care Team Providers Name Role Phone Anil William MD Primary Care Physician Unavailable Payers Type Date Identification Numbers Payment Provider Subscriber Medicare Primary Effective: Policy Number: Medicare Nataliia Spencer 2012 [id number] PayID: [id number] [address] [place] [address] [facility] Part B Policy Number: [id number] [facility] Nataliia Spencer PayID: [id number] [address] [place] [address] Problems Date Description Provider Status Onset: 03/17/2018 [...] Active Onset: 12/09/2014 Aortic valve disorder Ijeoma Ardon M.D. 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 Cigarette Use Never Smoked Cigarettes ETOH Use [...] 11/18/2014 Sulfa Antibiotics active 06/27/2016 Iodine active 03/30/2018 Norvasc flushing and rash active Moderate Medications Medication Date Status Form Strength Qnty SIG Indications Ordering Provider Hydralazine HCL 04/13 Active Tablets 50mg 90tab take one I10 Ijeoma s tablet by Evans mouth three M.D. times a day Chlorthalidone 04/10 Active Tablets 25mg 90tab 1 by mouth Ijeoma s every day Adiel Ardon Synthroid Active Tablets 50mcg 1 by mouth Unknown /0000 every day Aspir-81 Active Tablets 81mg 1 by mouth Unknown /0000 DR every day Co Q 10 Active 1200mg 1 po qd prn Unknown /0000 Vitamin D3 High Active Capsules 2000Unit 1 by mouth Unknown Potency /0000 every day Magnesium/Zinc Active Tablets 400-50mg daily Unknown /0000 Cinnamon Active Tablets 500mg 1 po every Unknown /0000 other day [place] Active 1 po qd Unknown /0000 Sertraline HCL Active Tablets 25mg as needed Unknown /0000 Atorvastatin Active Tablets 10mg 1 po qhs Unknown Calcium / Calcium Active Tablets 600mg 1 by mouth Unknown /0000 every day Melatonin Active Capsules 10mg 1 tab by Unknown /0000 mouth at bedtime as needed for insomnia Vitamin E-200 Active Capsules 200Unit 1 by mouth Unknown /0000 every day Vitamin B5 Active Tablets 1 tab daily Unknown /0000 ER Tylenol PM Active Tablets take 1 by Unknown /0000 mouth at bedtime Losartan 04/17 Hx Tablets 25mg 30tab 1 by mouth Brittney Potassium /2017 s every day Thuman, - 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 Enalapril Hx Tablets 5mg bid Unknown / - 03/29 Klonopin Hx Tablets 0.5mg 1-2 tabs at Unknown /0000 bedtime as - needed 12/10 Vitamin C Hx 1000mg 1 po qd Unknown / Dha Complete Hx Capsules 200mg occasionally Unknown / - 03/29 Vitamin B12 Hx Tablets 100mcg 1 by mouth Unknown / every day Vitamin B-1 00/00 Hx daily Unknown / Vitamin E Hx 1 po qd Unknown / - 12/10 Turmeric 00 Hx daily Unknown / - 01/10 Vitamin B 6 00/ Hx Unknown /0000 Amlodipine Hx Tablets 5mg 1 tablet po Unknown twice daily - 03/30 Promethazine HCL Hx Tablets 25mg as directed Unknown / - 04/24 Vital Signs Date Vital Result Comment 04/25/2018 Height 62 inches 5'2" Weight 123.12 lb Heart Rate 68 /min BP Systolic 130 mmHg BP Diastolic 82 mmHg BMI (Body Mass Index) 22.5 kg/m2 04/17/2018 Height 62 inches 5'2" Weight 123.00 lb Heart Rate 78 /min BP Systolic Sitting 130 mmHg manual cuff BP Diastolic Sitting 78 mmHg manual cuff BP Systolic Standing 132 mmHg maual cuff BP Diastolic Standing 84 mmHg maual cuff Pain Level 0 BMI (Body Mass Index) 22.5 kg/m2 03/30/2018 Height 62 inches 5'2" Weight 116.00 [...] Test Date Test Result H/L Range Note CBC Auto Diff 04/08/2018 White Blood Count 7.0 10^3/uL 3.5-10.8 Red Blood Count 4.86 10^6/uL 4.00-5.40 Hemoglobin 14.4 g/dL 12.0-16.0 Hematocrit 42 % 35-47 Mean Corpuscular Volume 86 fL 80-97 Mean Corpuscular Hemoglobin 30 pg 27-31 Mean Corpuscular HGB Conc 34 g/dL 31-36 Red Cell Distribution Width 14 % 10.5-15 Platelet Count 318 10^3/uL 150-450 Mean Platelet Volume 7.3 um3 Low 7.4-10.4 Abs Neutrophils 4.7 10^3/uL 1.5-7.7 Abs Lymphocytes 1.6 10^3/uL 1.0-4.8 Abs Monocytes 0.7 10^3/uL 0-0.8 Abs Eosinophils 0 10^3/uL 0-0.6 Abs Basophils 0 10^3/uL 0-0.2 Abs Nucleated RBC 0 10^3/uL Granulocyte % 67.0 % 38-83 Lymphocyte % 22.3 % Low 25-47 Monocyte % 9.5 % High 0-7 Eosinophil % 0.7 % 0-6 Basophil % 0.5 % 0-2 Nucleated Red Blood Cells % 0 Comp Metabolic Panel 04/08/2018 Sodium 138 mmol/L 135-145 Potassium 4.1 mmol/L 3.5-5.0 Chloride 100 mmol/L Low 101-111 Co2 Carbon Dioxide 31 mmol/L 22-32 Anion Gap 7 mmol/L 2-11 Glucose 95 mg/dL 70-100 Blood Urea Nitrogen 9 mg/dL 6-24 Creatinine 0.94 mg/dL 0.51-0.95 BUN/Creatinine Ratio 9.6 8-20 Calcium 10.0 mg/dL 8.6-10.3 Total Protein 7.8 g/dL 6.4-8.9 Albumin 4.6 g/dL 3.2-5.2 Globulin 3.2 g/dL 2-4 Albumin/Globulin Ratio 1.4 1-3 Total Bilirubin 0.60 mg/dL 0.2-1.0 Alkaline Phosphatase 97 U/L 34-104 Alt 23 U/L 7-52 Ast 26 U/L 13-39 Egfr Non- 58.7 >60 Egfr 71.0 >60 1 Laboratory test finding 04/08/2018 C Reactive Protein < 1.00 mg/L <8.01 Order 03/30/2018 EKG <pending> Laboratory test finding 06/27/2016 Surgical Pathology SEE RESULT BELOW 2 1 Because ethnic data is not always readily available, this report includes an eGFR for both -Americans and non- Americans. The National Kidney Disease Education Program (NKDEP) does not endorse the use of the MDRD equation for patients that are not between the ages of 18 and 70, are , have extremes of body size, muscle mass, or nutritional status, or are non- or non-. According to the National Kidney Foundation, irrespective of diagnosis, the stage of the disease is based on the level of kidney function: Stage Description GFR(mL/min/1.73 m(2)) 1 Kidney damage with normal or decreased GFR 90 2 Kidney damage with mild decrease in GFR 60-89 3 Moderate decrease in GFR 30-59 4 Severe decrease in GFR 15-29 5 Kidney failure <15 (or dialysis) 2 SEE RESULT BELOW Name: NATALIIA SPENCER : [address]: Shirley Herrera MD Acct: [id number] Unit: [id number] AGE: 71 Location: [facility] Re06/27/16 SEX: F Status: REG REF SPEC: [id number] RUSLAN: 06/27/16-1400 [facility] DR: Shirley Herrera MD REQ: [id number] RECD: 06/27/16 STATUS: SOUT _ ORDERED: LEVEL IV COMMENTS: [id number] FINAL DIAGNOSIS Nipple, left, incisional biopsy: -- [...] performed at Main Lab DEPARTMENT OF PATHOLOGY, [address] [place] [address] Mervin Oconnor M.D. Director [facility] # [id number] Procedures Date CPT Code Description Status 03/30/2018 61199 EKG Tracing & Interpretation Completed 03/19/2018 88078 ECHO Transthorasic Realtime 2D W Doppler & Color Flow Completed Hosp 01/23/2018 02343 ECHO Stress Test Incl Perf Contiuous ekg Monitoring Completed W/Phys Superv 01/18/2018 87816 ECHO Transthoracic, Real-Time 2D With Doppler And Color Completed Flow 01/18/2018 46030 ECHO Transthoracic, Real-Time 2D With Doppler And Color Completed Flow 01/11/2018 39671 EKG Tracing & Interpretation Completed 02/14/2017 02061 ECHO Transthoracic, Real-Time 2D With Doppler And Color Completed Flow 01/27/2017 91380 Treadmill Interp/Report Only Completed 01/27/2017 01315 Stress Test Supervsn W/Out I/R Completed 01/27/2017 42008 EKG, Interpretation Only Completed 01/12/2017 96290 EKG Tracing & Interpretation Completed 06/27/2016 41498 Biopsy Breast Incisional Completed 04/08/2016 Mammogram Completed 01/11/2016 15528 EKG Tracing & Interpretation Completed 12/09/2015 Mammogram Completed 12/09/2014 02605 EKG Tracing & Interpretation Completed 12/03/2014 02631 ECHO Transthoracic, Real-Time 2D With Doppler And Color Completed Flow 04/22/2007 05739 Treadmill Interp/Report Only Completed 04/22/2007 72523 Stress Test Supervsn W/Out I/R Completed 04/22/2007 83316 Stress Test Supervsn W/Out I/R Completed 01/12/2004 88412 Stress Test Completed Encounters Type Date Location Provider CPT E/M Dx Office Visit 04/25/2018 [facility] Briseyda Pino M.D. 14541 R20.2 8:00a R51 F41.9 Office Visit 03/20/2018 3:42p [facility], [place], 10438 I16.0 Hospitalists Adiel R51 E03.9 Office Visit 03/19/2018 7:00a [facility] Andreas Prince, 13351 R51 MDelmaDDelma I10 Office Visit 03/19/2018 12:18p [facility] Ijeoma Ardon M.D. 30202 I10 I35.0 Office Visit 03/19/2018 3:42p [facility], [place], 70392 I16.0 Hospitalists Adiel R51 E03.9 Office Visit 03/18/2018 7:00a [facility] Briseyda Pion M.D. 17499 R51 R26.81 H53.8 I10 Office Visit 03/17/2018 3:41p [facility], [place], 37792 I16.0 Hospitalists Adiel E03.9 R51 Office Visit 01/11/2018 3:40p [facility] Ijeoma Ardon M.D. 73710 I35.0 [facility] I34.0 R07.9 Office Visit 01/27/2017 2:32p [facility] David Suero, 99879 R07.89 Hospitalists Adiel I16.0 E03.9 Office Visit 01/26/2017 2:31p [facility] [place], [address] R07.89 Assoc,pc Hospitalists Adiel I16.0 E03.9 Office Visit 01/12/2017 3:30p [facility] Sayda Ardon M.D. 54367 R42 I10 I35.0 I34.0 I36.1 Office Visit 01/11/2016 3:45p [facility] Ijeoma Adron M.D. 57717 I35.0 [facility] I10 E78.2 Office Visit 12/09/2014 3:30p [facility] Ijeoma Ardon M.D. 93732 424.1 [facility] 272.4 Office Visit 11/18/2008 10:20a [facility] Anjum Ojeda, 00597 721.0 Of Sayda Chun 723.1 Office Visit 01/19/2007 1:00p [facility] Anjum Ojeda 81262 782.0 Of Sayda Chun Plan of Care Future Appointment(s):07/04/2018 11:00 am - Briseyda Pino M.D. at [facility]/08/2018 11:00 am - Ijeoma Ardon M.D. 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 follow up: 1. emg/ncs 2. 10-12 igblsM14 JdaiulmcZ75.9 Anxiety disorder, unspecifiedRecommendations: take sertraline every day. Your primary doctor may need to increase it after 2- 4 weeks
--- OUTSIDE RECORDS SUMMARY | 2018-04-27 21:15 | XMS REPORT | Continuity of Care Document ---
:1945 External Reference #:[id number] Author Name Smiley Gilbert O.D. Address [address] [place] [address] Care Team Providers Name Role Phone Anil William M.D. 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 Active Onset: 02/09/2015 Chalazion Smiley Gilbert O.D. Active Onset: 02/23/2015 Nuclear senile cataract Smiley Gilbert O.D. Active Onset: 02/23/2015 Vitreous degeneration Smiley Gilbert O.D. Active Onset: 02/23/2015 Internal hordeolum Smiley Gilbert O.D. Active Onset: 07/25/2016 Tear film insufficiency Smiley Gilbert O.D. Active Onset: 01/04/2018 Trichiasis of left eye Maxx Cannon M.D. Active Onset: 10/02/2017 Angular blepharoconjunctivitis Smiley Gilbert O.D. 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 ETOH Use Consumes 1 glass of wine per day Tobacco Use Start: Unknown End: Patient is a former smoker quit 1974 Unknown Recreational Drug Use Denies Drug Use Smoking Status Reviewed: 04/18/18 Patient is a former smoker quit 1974 Allergies, Adverse Reactions, Alerts Date Description Reaction Status Severity Comments 12/12/2014 Sulfa Antibiotics Active 05/23/2016 Iodinated Diagnostic Agents Active Medications Medication Date Status Form Strength Qnty SIG Indications Ordering Provider Neomycin/Polymyx 04/18/ Active Ointment 3.5-43541- 3.500g apply to H00.11 Smiley Wilson in/Dexamethasone 2018 0.1 m right eye [place], at O.D. bedtime Calcium / 08/02/ Active Daily Smiley Wilson Magnesium / Zinc 2018 [place], O.D. Refresh Tears 07/24/ Active Solution 0.5% 1 drop Smiley Wilson 2017 both eyes [place], 2-3 times O.D. a day Levothyroxine / Active Tablets 75mcg Unknown Sodium 0000 Aspirin / Active Tablets 81mg Unknown 0000 Coenzyme Q10 / Active Capsules 200mg every day Unknown 0000 Vitamin C / Active Tablets 1000mg 1 by Unknown 0000 mouth every day Vitamin D-3 / Active Capsules 1000Unit Unknown 0000 Curcumin / Active Powder Unknown 0000 Calcium Citrate / Active Tablets Unknown + 0000 Warm Compresses / Active as needed Unknown 0000 Hydralazine HCL / Active Tablets 50mg Unknown 0000 Chlorthalidone 00/ Active Tablets 25mg Unknown 0000 Sertraline HCL 00/ Active Tablets 25mg Unknown 0000 Atorvastatin 00// Active Tablets 10mg Unknown Calcium 0000 Tramadol HCL / Active Tablets 50mg Unknown 0000 Neomycin/Polymyx 10/02/ Hx Ointment 3.5-25626- 3.500g apply H10.523 Smiley Wilson in/Dexamethasone 2018 - 0.1 m 1/4" on [place], 01/03/ all lids O.D. 2018 both eyes at bedtime for 2 weeks. Erythromycin 10/01/ Hx Ointment 5mg/GM 1Tube 1-2 times Smiley Wilson 2018 - a day [place], 10/15/ O.D. 2017 Neomycin/Polymyx 02/11/ Hx Ointment 3.5-62952- 3.500g apply Smiley TinsleyDelma in/Dexamethasone 2015 - 0.1 m 1/4" in [place], 02/22/ both eyes O.D. 2014 at bedtime for 2 weeks. Tobradex 02/09/ Hx Ointment 0.3-0.1% 3.500g apply to 373.2 Smiley TinsleyDelma 2015 - m all lids [place], 11/02/ at O.D. 2015 bedtime for 2 weeks Clonazepam / Hx Tablets 0.5mg Unknown 0000 - 2015 Melatonin ER / Hx Tablets ER 3mg 1/2 by Unknown 0000 - mouth 05/22/ every day 2015 Vitamin B-12 / Hx Tablets 1000mcg Unknown 0000 - Sub 2015 B1 Natural /00/ Hx Tablets 250mg Unknown 0000 - 2015 B6 Natural 00/ Hx Tablets 100mg Unknown 0000 - 2015 Immunizations Description No Information Available Vital Signs Description No Information Available Results Description No Information Available Procedures Date Code Description Status 10/02/2017 63181 Est Patient Intermediate Exam Completed 08/02/2017 53740 Est Patient Comprehensive Exam Completed 07/25/2016 36624 Est Patient Comprehensive Exam Completed 05/23/2016 55345 Est Patient Intermediate Exam Completed 11/04/2015 21691 Est Patient Intermediate Exam Completed 02/23/2015 55511 Est Patient Comprehensive Exam Completed 02/09/2015 01730 Est Patient Intermediate Exam Completed 02/21/2014 84020 Determination Of Refractive State Completed 02/21/2014 68047 Est Patient Comprehensive Exam Completed 06/25/2013 63090 Correct Trichiasis, Epilation By Forceps Only Completed 05/17/2013 508 Refresh PM Ointment Completed 02/20/2013 05966 Est Patient Comprehensive Exam Completed 12/03/2012 01575 Est Patient Intermediate Exam Completed 01/30/2012 05111 Determination Of Refractive State Completed 01/30/2012 34786 New Patient Comprehensive Exam Completed Encounters Type Date Location Provider Dx Diagnosis Office Visit 01/04/2018 Maxx Wallace H02.055 Trichiasis without 1:30p , shala Cannon M.D. entropion left lower eyelid Office Visit 10/16/2017 Smiley Wallace H00.15 Chalazion left 2:20p , shala Gilbert O.D. lower eyelid H10.523 Angular blepharoconjunctivitis, bilateral Office Visit 01/22/2016 10:00a Connor Herrera H02.055 Trichiasis without MD Harrison, shala Brooks O.D. entropian left lower eyelid Office Visit 12/12/2014 3:15p Connor Herrera 374.05 Trichiasis W/O MD Harrison, shala Brooks O.D. Entropion Office Visit 07/15/2013 11:10a Connor Wilson 373.12 Van Terry MD, shala Gilbert O.D. Office Visit 07/01/2013 11:10a Connor Wilson 373.12 Meichitra Terry MD, shala Gilbert O.D. Office Visit 05/17/2013 3:20p Connor Wilson 374.05 Trichiasis W/O MD Harrison, shala Gilbert O.D. Entropion Office Visit 04/18/2013 9:10a Connor Wilson 374.56 Degenerative MD Harrison, shala Gilbert O.D. Disorders Of Skin Affecting Eyelid Office Visit 04/17/2013 3:10p Connor Wilson 374.05 Trichiasis W/O MD Harrison, shala Gilbert O.D. Entropion Plan of Treatment 04/18/2018 - Smiley Gilbert O.D.H00.11 Chalazion right upper eyelidNew Medication:Neomycin/Polymyxin/Dexamethasone 3.5-57444-8.1 - apply to right eye at bedtimeComments:Smoking can increase the risk of developing or worsening any eye related disease, as well as affect your overall health. If you are a smoker , we strongly recommend that you quit.If you are not a smoker, we strongly recommend that you do not start. Use a hot compress for 5-10 minutes with gentle lid massage at the end at least 6 x dayStart Bertin/Poly/dex ointment in Right eye and rub into all lids at bedtime for 2 weeksFollow up:1 Week Follow Up At your next visit, we are not planning to dilate your eyes. However, if you have any changes in your vision or new symptoms, there are certain situations that require us to dilate your eyes. If Dr. Gilbert requests any additional testing, that may require extra time. If you have any questions before your next appointment, please call our office at .
--- OUTSIDE RECORDS SUMMARY | 2018-04-27 21:15 | XMS REPORT | Continuity of Care Document ---
:1945 External Reference #:[id number] Author Name Smiley Gilbert O.D. Address [address] [place] [address] Care Team Providers Name Role Phone Anil William M.D. Primary Care Physician Unavailable Payers Type Date Identification Numbers Payment Provider Subscriber Policy Number: [id number] Medicare - [facility] Nataliia Spencer PayID: [id number] [address] [place] [address] Policy Number: [id number] [facility] Nataliia Spencer PayID: [id number] [address] [place] [address] Advance Directives Description No Information Available Problems [...] film insufficiency Smiley Gilbert O.D. Active Onset: 04/25/2018 Visual disturbance Smiley Gilbert O.D. Active Onset: 04/25/2018 Headache Smiley Gilbert O.D. Active Onset: 01/04/2018 Trichiasis [...] Use Denies Drug Use Smoking Status Reviewed: 04/25/18 Patient is a former smoker quit 1974 Allergies, Adverse Reactions, Alerts Date Description Reaction Status Severity Comments 12/12/2014 Sulfa Antibiotics Active 05/23/2016 Iodinated Diagnostic Agents Active Medications Medication Date Status Form Strength Qnty SIG Indications Ordering Provider Neomycin/Polymyx 04/18/ Active Ointment 3.5-84576- 3.500g apply to H00.11 Smiley Wilson in/Dexamethasone 2017 0.1 m right eye [place] at O.DDelma bedtime Calcium / 08/02/ Active Daily Smiley Wilson Magnesium / Zinc 2017 [place] OSarah Refresh Tears 07/24/ Active Solution 0.5% 1 drop Smiley Wilson 2017 both eyes [place], 2-3 times O.D. a day Levothyroxine / [...] / Active Tablets 50mg Unknown 0000 Chlorthalidone / Active Tablets 25mg Unknown 0000 Sertraline HCL / Active Tablets 25mg Unknown 0000 Atorvastatin / Active Tablets 10mg Unknown Calcium 0000 Tramadol HCL / Active Tablets 50mg Unknown 0000 Neomycin/Polymyx 10/02/ Hx Ointment 3.5-11288- 3.500g apply H10.523 Smiley Wilson in/Dexamethasone 2018 - 0.1 m 07/27" on [place], 01/03/ all lids O.D. 2017 both eyes at bedtime for 2 weeks. Erythromycin 10/01/ Hx Ointment 5mg/GM 1Tube 1-2 times Smiley Wilson 2017 - a day , 10/15/ O.D. 2017 Neomycin/Polymyx 02/11/ Hx Ointment 3.5-83738- 3.500g apply Smiley Wilson in/Dexamethasone 2015 - 0.1 m 1/4" in [place], 02/22/ both eyes O.D. 2014 at bedtime for 2 weeks. Tobradex 02/09/ Hx Ointment 0.3-0.1% 3.500g apply to 373.2 Smiley TinsleyDelma 2015 - m all lids , 11/02/ at O.D. 2016 bedtime for 2 weeks Clonazepam / Hx Tablets 0.5mg Unknown 0000 - 2015 Melatonin ER 00/00/ Hx Tablets ER 3mg 1/2 by Unknown 0000 - mouth 05/22/ every day 2015 Vitamin B-12 /00/ Hx Tablets 1000mcg Unknown 0000 - Sub 2015 B1 Natural 00/00/ Hx Tablets 250mg Unknown 0000 - 2015 B6 Natural 00/00/ Hx Tablets 100mg Unknown 0000 - 2015 Immunizations Description No Information Available Vital Signs Description No Information Available Results Description No Information Available Procedures Date Code Description Status 04/18/2018 21466 Est Patient Intermediate Exam Completed 10/02/2017 38546 Est Patient Intermediate Exam Completed 08/02/2017 45088 Est Patient Comprehensive Exam Completed 07/25/2016 30147 Est Patient Comprehensive Exam Completed 05/23/2016 26689 Est Patient Intermediate Exam Completed 11/04/2015 63183 Est Patient Intermediate Exam Completed 02/23/2015 47764 Est Patient Comprehensive Exam Completed 02/09/2015 22793 Est Patient Intermediate Exam Completed 02/21/2014 53928 Determination Of Refractive State Completed 02/21/2014 64666 Est Patient Comprehensive Exam Completed 06/25/2013 40679 Correct Trichiasis, Epilation By Forceps Only Completed 05/17/2013 508 Refresh PM Ointment Completed 02/20/2013 93282 Est Patient Comprehensive Exam Completed 12/03/2012 82145 Est Patient Intermediate Exam Completed 01/30/2012 51489 Determination Of Refractive State Completed 01/30/2012 11134 New Patient Comprehensive Exam Completed Encounters Type [...] O.D. Entropion Office Visit 07/15/2013 11:10a Connor Marcelino.12 Meiboaaron Terry MD, shala Gilbert O.D. Office Visit 07/01/2013 11:10a Connor Marcelino.12 Meichitra Terry MD, shala Gilbert O.D. Office Visit 05/17/2013 3:20p Connor Wilson 374.05 Trichiasis W/O MD Harrison, shala Gilbert O.D. Entropion Office Visit 04/18/2013 9:10a Connor Wilson 374.56 Degenerative MD Harrison, shala Gilbert O.D. Disorders Of Skin Affecting Eyelid Office Visit 04/17/2013 3:10p Connor Wilson 374.05 Trichiasis W/O MD Harrison, shala Gilbert O.D. Entropion Plan of Treatment 04/25/2018 - Smiley Gilbert O.D.H00.11 Chalazion right upper eyelidComments :Continue hot compresses for 5-10 minutes 4-5x dayContinue ointment right eye at bedtime for 2 [id number] HeadacheFollow up:2 week recheck mr and modrvkilaN28.13 Age-related nuclear cataract, bilateralComments:You have been diagnosed with cataracts. If you are happy with your vision as it is now, then we willsee you at your next scheduled appointment. If you feel like your vision is getting worse before your scheduled appointment, please call Nely Gonzalez at [phone].
--- OUTSIDE RECORDS SUMMARY | 2018-04-27 21:15 | XMS REPORT | Continuity of Care Document ---
:1945 External Reference #:[id number] Author Name Noe Blair Care Team Providers Name Role Phone Anil William M.D. Primary Care Physician Unavailable Payers Type Date Identification Numbers Payment Provider Subscriber Policy Number: [id number] Medicare - [facility] Nataliia Spencer PayID: [id number] [address] [place] [address] Policy Number: [id number] [facility] Nataliia Spencer PayID: [id number] [address] [place] [address] Advance Directives Description No Information Available Problems [...] Form Strength Qnty SIG Indications Ordering Provider Calcium / 08/02/ Active Daily Smiley Wilson [facility] / [facility] Refresh Tears 07/24/ Active Solution 0.5% 1 drop Smiley Wilson 2016 both eyes [facility], 2-3 times O.D. a day Enalapril / Active Tablets 5mg Twice Unknown Maleate 0000 Daily Levothyroxine / Active Tablets 75mcg Unknown Sodium 0000 Aspirin / Active Tablets 81mg Unknown 0000 Coenzyme Q10 / Active Capsules 200mg every day Unknown 0000 Vitamin C / Active Tablets 1000mg 1 by Unknown 0000 mouth every day Vitamin D-3 / Active Capsules 1000Unit Unknown 0000 Curcumin 00/ Active Powder Unknown 0000 Calcium Citrate / Active Tablets Unknown + 0000 Potassium / Active Tablets 75mg Unknown 0000 Warm Compresses / Active as needed Unknown 0000 Neomycin/Polymy 10/02/ Hx Ointment 3.5-63654- 3.500g apply H10.523 Smiley baker/Dexamethaso 2017 - 0.1 m 1/4" on [facility], 01/03/ all lids O.D. 2018 both eyes at bedtime for 2 weeks. Erythromycin 10/01/ Hx Ointment 5mg/GM 1Tube 1-2 times Smiley JDelma 2018 - a day [facility] 10/15/ O.D. 2017 Neomycin/Polymy 02/11/ Hx Ointment 3.5-92861- 3.500g apply Smiley Katie baker/Dexamethaso 2014 - 0.1 m 1/4" in [place] 02/22/ both eyes O.D. 2014 at bedtime for 2 weeks. Tobradex 02/09/ Hx Ointment 0.3-0.1% 3.500g apply to 373.2 Smiley Wilson 2015 - m all lids [place], 11/02/ at O.DDelma 2016 bedtime for 2 weeks Clonazepam // Hx Tablets 0.5mg Unknown 0000 - 2015 Melatonin ER 00/ Hx Tablets ER 3mg 1/2 by Unknown 0000 - mouth 05/22/ every day 2015 Vitamin B-12 /00/ Hx Tablets 1000mcg Unknown 0000 - Sub 2015 B1 Natural // Hx Tablets 250mg Unknown 0000 - 2015 B6 Natural /00/ Hx Tablets 100mg Unknown 0000 - 2015 Immunizations Description No Information Available Vital Signs Description No Information Available Results Description No Information Available Procedures Date Code Description Status 10/02/2017 00095 Est Patient Intermediate Exam Completed 08/02/2017 74554 Est Patient Comprehensive Exam Completed 07/25/2016 92903 Est Patient Comprehensive Exam Completed 05/23/2016 27816 Est Patient Intermediate Exam Completed 11/04/2015 38087 Est Patient Intermediate Exam Completed 02/23/2015 04061 Est Patient Comprehensive Exam Completed 02/09/2015 02886 Est Patient Intermediate Exam Completed 02/21/2014 65062 Determination Of Refractive State Completed 02/21/2014 78849 Est Patient Comprehensive Exam Completed 06/25/2013 23285 Correct Trichiasis, Epilation By Forceps Only Completed 05/17/2013 508 Refresh PM Ointment Completed 02/20/2013 40173 Est Patient Comprehensive Exam Completed 12/03/2012 66593 Est Patient Intermediate Exam Completed 01/30/2012 97849 Determination Of Refractive State Completed 01/30/2012 37823 New Patient Comprehensive Exam Completed Encounters Type [...] Entropion Office Visit 07/15/2013 11:10a Connor Marcelino.12 Van Terry MD, shala Gilbert O.D. Office Visit 07/01/2013 11:10a Connor Marcelino.12 Meichitra Terry MD, shala Gilbert O.D. Office Visit 05/17/2013 3:20p Connor Finnegan.05 Trichiasis W/O MD Harrison, shala Gilbert O.D. Entropion Office Visit 04/18/2013 9:10a Connor Finnegan.56 Degenerative MD Harrison, shala Gilbert O.D. Disorders Of Skin Affecting Eyelid Office Visit 04/17/2013 3:10p Connor Finnegan.05 Trichiasis W/O MD Harrison, shala Gilbert O.D. 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 If you are a smoker, we strongly recommend that you quit.If you are not a smoker, we strongly recommend that you do not start. USE AN ARTIFICIAL TEAR DROP 4-6X/DAY FOR THE NEXT 2 DAYS TO HELP THE CORNEA HEAL
[2018-04-27] MEDS ORDERED: Ketorolac INJ* 30 MG/ML 1 ML VIAL IV PUSH ONE (21:39)
[2018-04-27] MEDS ORDERED: PROCHLORPERAZINE INJ 5 MG/ML 2 ML VIAL IV ONE (21:39)
--- NOTE | 2018-04-27 21:43 | ED ---
Headache - HPI Summary HPI Summary: The patient is a 73 y/o F presenting to [facility] with a chief complaint of a headache that has persisted for the last month and a half, and worsened in the last two weeks with persistence. She has visited Dr. Pino, neurologist, who ordered multiple images of the head, including an MRI, none of which showed any acute pathology. The aching pain is located primarily on the right frontal side , and is currently rated 8/10 in severity. The pain is aggravated by movement, especially with chin to chest movement. She additionally c/o tingling in arms and legs. She denies SOB. She has not had this pain before initial onset. - History Of Current Complaint Chief Complaint: EDHeadache Stated Complaint: HEADACHE/HIGH BP Time Seen by Provider: 04/27/18 21:22 Hx Obtained From: Patient Onset/Duration: Sudden Onset, Started weeks ago - a month and a half, Still Present, Worse Since - last two weeks Initially Headache Was: Moderate Currently Pain Is: Current Pain Scale(0-10)= - 8 Timing: Constant, Weeks Character: Throbbing Location of Headache: Frontal - right Aggravating Factor: Other - movement - chin to chest Allevating Factors: Nothing Associated Signs And Symptoms: Other (Noted In Comments) - POSITIVE: tingling in arms and legs; NEGATIVE: SOB Head: 1 - pain in right frontal area - Allergies/Home Medications Allergies/Adverse Reactions: Allergies Allergy/AdvReac Type Severity Reaction Status Date / Time Iodinated Contrast- Oral and Allergy Hives Verified 04/08/18 06:32 IV Dye Iodine and Iodide Containing Allergy Hives Verified 04/08/18 06:32 Produc Sulfa (Sulfonamide Allergy Hives Verified 04/08/18 06:32 Antibiotics) PMH/Surg Hx/FS Hx/Imm Hx Endocrine/Hematology History: Reports: Hx Thyroid Disease Denies: Hx Diabetes Cardiovascular History: Reports: Hx Angina, Hx Hypercholesterolemia, Hx Hypertension Denies: Hx Coronary Artery Disease, Hx Myocardial Infarction, Hx Pacemaker/ ICD Respiratory History: Denies: Hx Asthma, Hx Chronic Obstructive Pulmonary Disease (COPD) History: Denies: Hx Dialysis, Hx Renal Disease Musculoskeletal History: Denies: Hx Rheumatoid Arthritis, Hx Osteoporosis Sensory History: Reports: Hx Contacts or Glasses Denies: Hx Hearing Aid Opthamlomology History: Reports: Hx Contacts or Glasses Psychiatric History: Denies: Hx Panic Disorder - Cancer History Hx Chemotherapy: No Hx Radiation Therapy: No - Surgical History Surgery Procedure, Year, and Place: APPENDECTOMY - Infectious Disease History: No Infectious Disease History: Denies: Traveled Outside the [place] in Last 30 Days - Family History Known Family History: Positive: Hypertension Negative: Cardiac Disease - Social History Alcohol Use: Occasionally Hx Substance Use: No Substance Use Type: Reports: None Hx Tobacco Use: No Smoking Status (MU): Never Smoked Tobacco Review of Systems Negative: Shortness Of Breath Neurological: Other - tingling in bilateral arms and legs Positive: Headache - right frontal All Other Systems Reviewed And Are Negative: Yes Physical Exam - Summary Physical Exam Summary: Appearance: Well-appearing, Well-nourished, lying in bed comfortably Skin: Warm, dry, no obvious rash Eyes: sclera anicteric, no conjunctival pallor ENT: mucous membranes moist, pharynx appears normal Neck: Supple, nontender Respiratory: Clear to auscultation, no signs of respiratory distress Cardiovascular: Normal S1, S2. No murmurs. Normal distal pulses in tibial and radial bilaterally. Abdomen: Soft, nontender, normal active bowel sounds present Musculoskeletal: Normal, Strength/ROM Intact Neurological: A&Ox3, awake and alert, mentation is normal, speech is fluent and appropriate Psychiatric: affect is normal, does not appear anxious or depressed Triage Information Reviewed: Yes Vital Signs On Initial Exam: Initial Vitals Temp Pulse Resp BP Pulse Ox 98.4 F 80 16 174/93 98 04/27/18 20:51 04/27/18 20:51 04/27/18 20:51 04/27/18 20:51 04/27/18 20:51 Vital Signs Reviewed: Yes Diagnostics - Vital Signs Vital Signs Temp Pulse Resp BP Pulse Ox 04/27/18 21:17 76 172/104 98 04/27/18 20:51 98.4 F 80 16 174/93 98 - Laboratory Lab Statement: Any lab studies that have been ordered have been reviewed, and results considered in the medical decision making process. - EKG 21:19 Cardiac Rate: NL - 77 BPM EKG Rhythm: Sinus Rhythm EKG Interpretation: P waves, QRS complex, and T waves and intervals nml. No ischemic changes. Headache Course/Dx - Course Course Of Treatment: This is a 73-year-old woman here for recurrent headache. She has been getting these headaches fairly frequently over the past several months and has had an extensive evaluation including MR imaging. This is all been negative so far. She was medicated for her pain, and there are no new findings. A sedimentation rate was obtained and is normal making temporal arteritis very unlikely. She is stable for discharge. - Diagnoses Provider Diagnoses: Headache Discharge - Sign-Out/Discharge Documenting (check all that apply): Patient Departure - Patient john be discharged home. - Discharge Plan Condition: Good Disposition: HOME Patient Education Materials: Acute Headache (ED) Referrals: Anil William MD [Primary Care Provider] - 3 Days - Billing Disposition and Condition Condition: GOOD Disposition: Home - Attestation Statements Document Initiated by Scribe: Yes Documenting Scribe: Rossi Delgado Provider For Whom Maldonado is Documenting (Include Credential): Dr. Jeffry Foley MD Scribe Attestation: Rossi Ray scribed for Dr. Jeffry Foley MD on 04/28/18 at 0142. Scribe Documentation Reviewed: Yes Provider Attestation: The documentation as recorded by the Rossi valerio accurately reflects the service I personally performed and the decisions made by me, Dr. Jeffry Foley MD
[2018-04-28] MEDS ORDERED: Butalb/Acetamin/Caff TAB* 1 TAB PO ONE (00:02)
[2018-04-28 00:22] VITALS: BP 151/82
== END 2018-04-28 00:25 | disposition home or self-care (01) ==
LOC: ED 20:48
DX: R51 Headache (principal); R20.2 Paresthesia of skin; E78.00 Pure hypercholesterolemia, unspecified; I20.9 Angina pectoris, unspecified; Z79.899 Other long term (current) drug therapy; R94.31 Abnormal electrocardiogram [ECG] [EKG]
CPT/HCPCS: 36415; 85652; 93005; 96374; 96375; 99283; A9270-GY; J0780; J1885

== ENCOUNTER 2019-01-31 21:38 | Inpatient (IN) | payer MEDICARE ==
--- OUTSIDE RECORDS SUMMARY | 2019-01-31 22:11 | XMS REPORT | Continuity of Care Document ---
:1945 External Reference #:[id number] Author Name Smiley Gilbert O.D. Address [address] [place] [address] Care Team Providers Name Role Phone Anil William M.D. 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 Onset: 12/12/2014 Chalazion Smiley Gilbert O.D. Onset: 02/09/2015 Nuclear senile cataract Smiley Gilbert O.D. Onset: 02/23/2015 Vitreous degeneration Smiley Gilbert O.D. Onset: 02/23/2015 Internal hordeolum Smiley Gilbert O.D. Onset: 02/23/2015 Tear film insufficiency Smiley Gilbert O.D. Onset: 07/25/2016 Angular blepharoconjunctivitis Smiley Gilbert O.D. Onset: 10/02/2017 Trichiasis of left eye Maxx Cannon M.D. Onset: 01/04/2018 Headache Smiley Gilbert O.D. Onset: 04/25/2018 Visual disturbance Smiley Gilbert O.D. Onset: 04/25/2018 Arterial retinal branch occlusion Smiley Gilbert O.D. Onset: 05/09/2018 Superficial punctate keratitis Smiley Gilbert O.D. Onset: 09/21/2018 Conjunctivitis Smiley Gilbert O.D. 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 consumes alcohol Tobacco Use Start: Unknown End: Patient is a former smoker quit 1974 Unknown Recreational Drug Use Denies Drug Use Smoking Status Reviewed: 01/02/19 Patient is a former smoker quit 1974 Allergies, Adverse Reactions, Alerts Active Allergies Reaction Severity Comments Date Sulfa Antibiotics 12/12/2014 Iodinated Diagnostic Agents 05/23/2016 Medications Active Medications SIG Qnty Indications Ordering Date Provider Neomycin/Polymyxin/Dexa apply 07/27" in 3.500gm H00.12 Smiley Wilson 01/02/2019 methasone both eyes and Jailyn Gilbert 3.5-19003-5.1 rub into all Ointment lids at bedtime for 2 weeks. Enalapril Maleate Take One Tablet Unknown 07/04/2018 5mg By Mouth Twice Tablets A Day Calcium / Magnesium / Daily Smiley Wilson 08/02/2017 Zinc Jailyn Gilbert Refresh Tears 1 drop both Smiley Wilson 07/24/2016 0.5% Solution eyes 2-3 times Jailyn Gilbert a day Sertraline HCL Unknown 25mg Tablets Chlorthalidone Unknown 25mg Tablets Hydralazine HCL Unknown 50mg Tablets Warm Compresses as needed Unknown Calcium Citrate + Unknown Tablets Curcumin Unknown Powder Vitamin D-3 Unknown 1000Unit Capsules Vitamin C 1 by mouth Unknown 1000mg Tablets every day Coenzyme Q10 every day Unknown 200mg Capsules Aspirin Unknown 81mg Tablets Levothyroxine Sodium Unknown 75mcg Tablets History Medications Neomycin/Polymyxin/Dexamethasone apply to 3.500gm H00.11 Smiley Wilson 2017 - 3.5-60057-0.1 right eye [facility], 05/23/2018 Ointment at bedtime O.D. Neomycin/Polymyxin/Dexamethasone apply /4" 3.500gm H10.523 Smiley Wilson 06/2018 - 3.5-27139-3.1 on all [facility], 01/03/2018 Ointment lids both O.D. eyes at bedtime for 2 weeks. Erythromycin 1-2 times 1Tube Smiley Wilson 10/01/2017 - 5mg/[facility] Neomycin/Polymyxin/Dexamethasone apply 07/27" 3.500gm Smiley Tinsley. 02/11/2015 - 3.5-00851-0.1 [facility]2015 Ointment eyes at O.D. bedtime for 2 weeks. Tobradex apply to 3.500gm 373.2 Smiley Wilson 02/09/2015 - 0.3-0.1% Ointment all lids [facility], 11/03/2015 at bedtime O.D. for 2 weeks Clonazepam Unknown - 0.5mg Tablets 11/22/2015 Melatonin ER 1/2 by Unknown - 3mg Tablets ER mouth 05/22/2016 every day Vitamin B-12 Unknown - 1000mcg Tablets Sub 05/22/2016 B1 Natural Unknown - 250mg Tablets 05/22/2016 B6 Natural Unknown - 100mg Tablets 05/22/2016 Atorvastatin Calcium Unknown - 10mg Tablets 01/02/2018 Tramadol HCL Unknown - 50mg Tablets 01/02/2018 Procedures Date Code Description Status 10/29/2018 21275 Visual Field Exam Extended Completed 10/29/2018 53178 Est Patient Comprehensive Exam Completed 07/05/2018 63903 Visual Field Exam Extended Completed 07/05/2018 76701 Est Patient Comprehensive Exam Completed 05/09/2018 86831 Fundus Photography With Interpretation And Report Completed 05/09/2018 61999 Visual Field Exam Extended Completed 05/09/2018 97054 Est Patient Intermediate Exam Completed 04/18/2018 74217 Est Patient Intermediate Exam Completed 10/02/2017 65610 Est Patient Intermediate Exam Completed 08/02/2017 58737 Est Patient Comprehensive Exam Completed 07/25/2016 43958 Est Patient Comprehensive Exam Completed 05/23/2016 21424 Est Patient Intermediate Exam Completed 11/04/2015 71398 Est Patient Intermediate Exam Completed 02/23/2015 57311 Est Patient Comprehensive Exam Completed 02/09/2015 09938 Est Patient Intermediate Exam Completed 02/21/2014 32808 Determination Of Refractive State Completed 02/21/2014 32044 Est Patient Comprehensive Exam Completed 06/25/2013 77054 Correct Trichiasis, Epilation By Forceps Only Completed 05/17/2013 508 Refresh PM Ointment Completed 02/20/2013 65501 Est Patient Comprehensive Exam Completed 12/03/2012 62432 Est Patient Intermediate Exam Completed 01/30/2012 92413 Determination Of Refractive State Completed 01/30/2012 51106 New Patient Comprehensive Exam Completed Encounters Type Date Location Provider Dx Diagnosis Office Visit 11/30/2018 Karine Wallace, H02.055 Trichiasis without 11:30a shala ANN O.D. entropion left lower eyelid Office Visit 09/21/2018 Smiley Wallace H02.055 Trichiasis without 11:30a , shala Gilbert O.D. entropion left lower eyelid H16.142 Punctate keratitis, left eye H10.89 Other conjunctivitis Office Visit 05/24/2018 11:45a Connor Wilson H34.232 Retinal artery MD Harrison, shala Gilbert O.D. branch occlusion, left eye Office Visit 04/25/2018 1:30p Connor Wilson H00.11 Chalazion right MD Harrison, shala Gilbert O.D. upper eyelid R51 Headache H25.13 Age-related nuclear cataract, bilateral Office Visit 01/04/2018 1:30p Connor Lilly H02.055 Trichiasis MD Harrison, shala Cannon M.D. without entropion left lower eyelid Office Visit 10/16/2017 2:20p Connor Wilson H00.15 Chalazion left MD Harrison, shala Gilbert O.D. lower eyelid H10.523 Angular blepharoconjunctivitis, bilateral Office Visit 01/22/2016 10:00a Connor Herrera H02.055 Trichiasis without MD Harrison, shala Brooks O.D. entropian left lower eyelid Office Visit 12/12/2014 3:15p Connor Herrera 374.05 Trichiasis W/O MD Harrison, shala Brooks O.D. Entropion Office Visit 07/15/2013 11:10a Connor Marcelino.12 Van Terry MD, shala Gilbert O.D. Office Visit 07/01/2013 11:10a Connor Marcelino.12 Van Terry MD, shala Gilbert O.D. Office Visit 05/17/2013 3:20p Connor Wilson 374.05 Trichiasis W/O MD Harrison, shala Gilbert O.D. Entropion Office Visit 04/18/2013 9:10a Connor Wilson 374.56 Degenerative MD Harrison, shala Gilbert O.D. Disorders Of Skin Affecting Eyelid Office Visit 04/17/2013 3:10p Connor Finnegan.05 Trichiasis W/O MD Harrison, shala Gilbert O.D. Entropion Plan of Treatment Future Appointment(s):05/15/2019 2:00 pm - Smiley Gilbert O.D. 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
[2019-01-31] MEDS ORDERED: Lactated Ringers 1000 ML Bag* 1,000 ML IV SCH (23:45)
[2019-01-31] MEDS ORDERED: Ondansetron INJ* 2 MG/ML VIAL IV ONE (23:49)
[2019-01-31] MEDS ORDERED: Famotidine IV* 10 MG/ML 2 ML (20 mg) IV SLOW PU ONE (23:49)
[2019-02-01] MEDS ORDERED: Diazepam TAB(*) 5 MG PO ONE
--- NOTE | 2019-02-01 00:05 | ED ---
GI/ HPI - HPI Summary HPI Summary: Pt is a 73 y/o F brought into the ED by EMS for nausea. She states she has been nauseous since 01/30/19, and has an accompanying backache in her lower back and diarrhea. She denies vomiting, abd pain, dysuria, burning with urination, CP, and SOB. - History of Current Complaint Chief Complaint: EDNauseaVomitDiarrh Time Seen by Provider: 01/31/19 23:15 Stated Complaint: NAUSEA PER EMS Hx Obtained From: Patient Onset/Duration: Started Days Ago, Still Present Timing: Constant, Lasting Days Severity: Moderate Current Severity: Moderate Pain Intensity: 2 Location of Pain: None Associated Signs and Symptoms: Positive: Back Pain, Nausea, Diarrhea. Negative : Vomiting, Abdominal Pain, Chest Pain, UTI Symptoms Aggravating Factor(s): Nothing Alleviating Factor(s): Nothing - Additional Pertinent History Primary Care Physician: GARETT - Allergy/Home Medications Allergies/Adverse Reactions: Allergies Allergy/AdvReac Type Severity Reaction Status Date / Time Iodinated Contrast- Oral and Allergy Hives Verified 11/26/18 14:23 IV Dye Iodine and Iodide Containing Allergy Hives Verified 11/26/18 14:23 Produc Sulfa (Sulfonamide Allergy Hives Verified 11/26/18 14:23 Antibiotics) Home Medications: Home Medications Atorvastatin* [Lipitor*] 10 mg PO DAILY 02/01/19 [History Confirmed 02/01/19] Chlorthalidone 1 tab PO DAILY 02/01/19 [History Confirmed 02/01/19] Melatonin [Ra Melatonin] 10 mg PO QPM 02/01/19 [History Confirmed 02/01/19] Ubidecarenone/Vit E/Vit E Mix [Co-Enzyme Q10 100 mg Softgel] 1 each PO DAILY 07/11 [History Confirmed 02/01/19] PMH/Surg Hx/FS Hx/Imm Hx Previously Healthy: Yes Endocrine/Hematology History: Reports: Hx Thyroid Disease Denies: Hx Diabetes Cardiovascular History: Reports: Hx Angina, Hx Hypercholesterolemia, Hx Hypertension Denies: Hx Coronary Artery Disease, Hx Myocardial Infarction, Hx Pacemaker/ ICD Respiratory History: Denies: Hx Asthma, Hx Chronic Obstructive Pulmonary Disease (COPD) History: Denies: Hx Dialysis, Hx Renal Disease Musculoskeletal History: Denies: Hx Rheumatoid Arthritis, Hx Osteoporosis Sensory History: Reports: Hx Contacts or Glasses Denies: Hx Hearing Aid Opthamlomology History: Reports: Hx Contacts or Glasses Psychiatric History: Denies: Hx Panic Disorder - Cancer History Hx Chemotherapy: No Hx Radiation Therapy: No - Surgical History Surgery Procedure, Year, and Place: APPENDECTOMY - Immunization History Date of Tetanus Vaccine: unk Date of Influenza Vaccine: none Infectious Disease History: No Infectious Disease History: Denies: Traveled Outside the [place] in Last 30 Days - Family History Known Family History: Positive: Hypertension Negative: Cardiac Disease - Social History Alcohol Use: Occasionally Hx Substance Use: No Substance Use Type: Reports: None Hx Tobacco Use: No Smoking Status (MU): Never Smoked Tobacco Review of Systems Negative: Chest Pain Negative: Shortness Of Breath Positive: Diarrhea, Nausea. Negative: Abdominal Pain, Vomiting Negative: burning, dysuria Positive: Myalgia - back pain All Other Systems Reviewed And Are Negative: Yes Physical Exam - Summary Physical Exam Summary: Constitutional: Well-developed, Well-nourished, Alert. (-) Distressed Skin: Warm, Dry HENT: Normocephalic; Atraumatic Eyes: Conjunctiva normal Neck: Musculoskeletal ROM normal neck. (-) JVD, (-) Stridor, (-) Tracheal deviation Cardio: Systolic murmur, rate normal, Heart sounds normal; Intact distal pulses ; The pedal pulses are 2+ and symmetric. Radial pulses are 2+ and symmetric. Pulmonary/Chest wall: Effort normal. (-) Respiratory distress, (-) Wheezes, (-) Rales Abd: Soft, (-) tenderness, (-) Distension, (-) Guarding, (-) Rebound Musculoskeletal: (-) Edema, describing bilateral lower back pain, without tenderness to the lower back, specifically on the midline. There is no calf tenderness, and extremities are warm and well perfused. Neuro: Alert, Oriented x3 Psych: Mood and affect Normal Triage Information Reviewed: Yes Vital Signs On Initial Exam: Initial Vitals Temp Pulse Resp BP Pulse Ox 97.4 F 66 14 165/105 97 01/31/19 21:45 01/31/19 21:45 01/31/19 21:45 01/31/19 21:45 01/31/19 21:45 Vital Signs Reviewed: Yes Diagnostics - Vital Signs Vital Signs Temp Pulse Resp BP Pulse Ox 01/31/19 23:19 68 23 151/98 94 01/31/19 23:00 62 18 94 01/31/19 22:49 63 17 146/88 94 01/31/19 22:19 63 16 150/100 96 01/31/19 22:00 67 18 96 01/31/19 21:50 66 17 165/105 96 01/31/19 21:46 66 96 01/31/19 21:45 97.4 F 66 14 165/105 97 - Laboratory Result Diagrams: 02/01/19 00:05 02/01/19 00:05 Lab Statement: Any lab studies that have been ordered have been reviewed, and results considered in the medical decision making process. - EKG 0010 Cardiac Rate: NL - 66bpm EKG Rhythm: Sinus Rhythm ST Segment: Normal Ectopy: None Summary of EKG Findings: EKG at 0010 shows NSR at 66bpm with Q waves in the inferior and anterior leads that are old, old prolonged QTc, and motion artifact at baseline. There is no STEMI. Re-Evaluation - Re-Evaluation 1st re-eval Re-Evaluation Time: 00:05 Change: Unchanged Comment: The pt is feeling anxious and restless. GIGU Course/Dx - Course Course Of Treatment: Pt is a 73 y/o F brought into the ED by EMS for nausea. She states she has been nauseous since 01/30/19, and has an accompanying backache in her lower back and diarrhea. She denies vomiting, abd pain, dysuria , burning with urination, CP, and SOB. EKG at 0010 shows NSR at 66bpm with Q waves in the inferior and anterior leads that are old, old prolonged QTc, and motion artifact at baseline. There is no STEMI. Pts chemistry shows Sodium of 119, Potassium of 3.2, Chloride of 84, Anion Gap of 12, BUN/Creatinine of 21, and Magnesium of 1.7. Her dx will include hyponatremia. Pt accepted to [facility] [place]. Garcia. - Diagnoses Provider Diagnoses: Hyponatremia Discharge - Sign-Out/Discharge Documenting (check all that apply): Patient Departure - Discharge Plan Condition: Stable Disposition: ADMITTED TO [facility] - Billing Disposition and Condition Condition: STABLE Disposition: Admitted to [facility] - Attestation Statements Document Initiated by Scribe: Yes Documenting Scribe: Karen O'Germain Provider For Whom Scribe is Documenting (Include Credential): Ilan Porras MD. Scribe Attestation: IKaren, scribed for Ilan Porras MD. on 02/01/19 at 0626. Scribe Documentation Reviewed: Yes Provider Attestation: The documentation as recorded by the scribe, Karen Hart accurately reflects the service I personally performed and the decisions made by me, Ilan Porras MD. Status of Scribe Document: Viewed
[2019-02-01 00:11] LABS: ABS Lymphocytes 1.1 10^3/ul (1.0-4.8); ABS Monocytes 0.6 10^3/ul (0-0.8); ABS Neutrophils 8.7 10^3/ul (1.5-7.7); Eosinophil % 0.2 %; Hematocrit 39 % (35-47); Hemoglobin 13.5 g/dL (12.0-16.0); Lymphocyte % 10.4 %; Mean Corpuscular HGB Conc 34 g/dL (31-36); Mean Corpuscular Hemoglobin 30 pg (27-31); Mean Corpuscular Volume 86 fL (80-97); Mean Platelet Volume 6.7 fL (7.4-10.4); Platelet Count 332 10^3/uL (150-450); Red Blood Count 4.56 10^6 /uL (3.70-4.87); Red Cell Distribution Width 14 % (10-15); White Blood Count 10.4 10^3/uL (3.5-10.8)
[2019-02-01 00:28] LABS: Albumin 4.2 g/dL (3.2-5.2); Albumin/Globulin Ratio 1.4 (1-3); Calcium 9.4 mg/dL (8.6-10.3); EGFR African American 114.8 (>60); EGFR Non-African American 94.9 (>60); Globulin 3.1 g/dL (2-4); Magnesium 1.7 mg/dL (1.9-2.7); Potassium 3.2 mmol/L (3.5-5.0); Total Bilirubin 0.9 mg/dL (0.2-1.0); Total Protein 7.3 g/dL (6.4-8.9)
[2019-02-01 00:31] LABS: Activated Partial Thrombo Time 36.9 seconds (26.0-38.0); INR 1.04 (0.82-1.09)
[2019-02-01] MEDS ORDERED: Potassium Chlor TAB* 20 MEQ TAB.ER PO ONE (00:54)
[2019-02-01] MEDS ORDERED: Magnesium Sulfate 2 GM IV* 2 GM/50 ML BAG IVPB ONE (00:54)
[2019-02-01] MEDS ORDERED: Lactated Ringers 1000 ML Bag* 1,000 ML IV SCH (01:00)
[2019-02-01] MEDS ORDERED: Lactated Ringers 1000 ML Bag* 1,000 ML IV ONE (01:00)
[2019-02-01] MEDS ORDERED: traMADol TAB* 50 MG PO PRN (02:08)
[2019-02-01] MEDS ORDERED: NS 0.9% 1000 ML** 1,000 ML IV SCH (02:15)
[2019-02-01] MEDS: Acetaminophen TAB* 325 MG PO PRN (03:38)
[2019-02-01] MEDS: Levothyroxine TAB* 50 MCG TAB PO SCH (05:03)
[2019-02-01 06:28] LABS: ABS Eosinophils 0.1 10^3/ul (0-0.6); ABS Lymphocytes 1.4 10^3/ul (1.0-4.8); ABS Monocytes 0.8 10^3/ul (0-0.8); ABS Neutrophils 4.6 10^3/ul (1.5-7.7); Hematocrit 35 % (35-47); Hemoglobin 12.5 g/dL (12.0-16.0); Lymphocyte % 20.9 %; Mean Corpuscular HGB Conc 36 g/dL (31-36); Mean Corpuscular Hemoglobin 31 pg (27-31); Mean Corpuscular Volume 86 fL (80-97); Mean Platelet Volume 7.1 fL (7.4-10.4); Platelet Count 291 10^3/uL (150-450); Red Blood Count 4.11 10^6 /uL (3.70-4.87); Red Cell Distribution Width 14 % (10-15); White Blood Count 6.9 10^3/uL (3.5-10.8)
[2019-02-01 06:44] LABS: BUN/Creatinine Ratio 16.4 (8-20); Calcium 9.1 mg/dL (8.6-10.3); EGFR African American 131.8 (>60); Potassium 3.4 mmol/L (3.5-5.0)
--- NOTE | 2019-02-01 06:44 | HP ---
CC: Dr. William; Dr. Ardon * HISTORY AND PHYSICAL: DATE OF ADMISSION: 02/01/19 CHIEF COMPLAINT: Nausea. HISTORY OF PRESENT ILLNESS: Ms. Spencer is a 73-year-old woman with history of hypertension who presented to the emergency department this evening complaining of nausea that had been present for many hours on the day of admission and worsening but lacking any vomiting. The patient has also had mild abdominal pain which radiated to the back for the past 2 weeks. Because of the nausea and pain, she has had no appetite. She has been drinking plenty of fluids but has had no p.o. intake for 2 days. The patient in the past has been told to avoid sodium in her diet due to hypertension. She has been compliant with recommendation. The patient denies any fevers or chest complaints. She does feel weak all over and feels that she is getting weaker. Last admission for this patient was in February of 2018. At that time, she presented with headache and hypertensive urgency. No stroke was found. Her blood pressure medicine had been adjusted. The most recent adjustment to her blood pressure medicines includes the addition of chlorthalidone about 1 year ago. PAST MEDICAL HISTORY: Includes hypertension, moderate aortic stenosis, hypothyroidism. PAST SURGICAL HISTORY: Appendectomy at age 25. MEDICATIONS: On admission are: 1. Aspirin 81 mg p.o. every day. 2. Atorvastatin 10 mg p.o. q.h.s. 3. Calcium with magnesium and vitamin D 1 tab daily. 4. Chlorthalidone 25 mg p.o. every day. 5. Vitamin D 2000 units p.o. every day. 6. Cinnamon bark daily. 7. Vitamin B12 1000 mcg p.o. daily. 8. Evening primrose daily. 9. Hydralazine 5 mg p.o. b.i.d. 10. Levothyroxine 50 mcg p.o. every day. 11. Magnesium oxide 400 mg p.o. every day. 12. Melatonin 10 mg at night as needed. 13. Tramadol 50 mg p.o. q.8 hours p.r.n. pain. 14. Multiple other supplements including vitamin E, zinc, vitamin B5, and ubidecarenone. ALLERGIES: SULFA and IODINE CONTRAST DYE. FAMILY HISTORY: Notable for mother of melanoma, father of lung cancer. She has 2 siblings who are healthy. 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 She is . She has 3 children. Her healthcare proxy is her . She cares for her who has Parkinson's. REVIEW OF SYSTEMS: The patient has some sweats in the last 24 hours. The patient denies any fevers, but she does have anorexia. The patient denies any chest pain, palpitations. The patient denies any cough, hemoptysis, shortness of breath. Remainder of her 14-point review of systems is negative other than mentioned in the HPI. PHYSICAL EXAMINATION GENERAL: She is alert, in no acute distress. VITAL SIGNS: Temperature is 36.7, pulse 63, respirations 14, blood pressure 131 /84, and oxygen sats 89% to 92%. HEENT: Head is normocephalic, atraumatic. Sclerae are anicteric. Pupils are equal, round, and reactive to light and accommodation. Oropharynx is moist. No lesions. NECK: No JVD, no carotid bruit, no thyromegaly. LUNGS: Clear to auscultation and percussion bilaterally. HEART: Regular rate and rhythm with 2/6 systolic murmur at the right upper sternal border. ABDOMEN: Soft, nontender. Positive bowel sounds. No splenomegaly. EXTREMITIES: No peripheral edema. Dorsalis pedis pulses are 1+ bilaterally. NEUROLOGIC: Cranial nerves II through XII were intact. Motor strength is 5/5 throughout. Deep tendon reflexes are symmetric. She is alert and oriented x3. She appeared anxious. LABORATORY DATA: Sodium 119, potassium 3.2, chloride 84, bicarb 23, BUN 13, creatinine 0.62, glucose 121, calcium 9.4, magnesium 1.7. AST 21, ALT 15, lipase 18. INR 1.04. PTT 36.9. Lactic acid 0.5. White count 10.4, hemoglobin 13.5, hematocrit 39%, platelets 332. EKG shows normal sinus rhythm, normal axis, mild upsloping ST elevations in V2 through V3 which are nonspecific. Chest x-ray shows no infiltrates or effusions. ASSESSMENT AND PLAN: A 73-year-old woman presenting with symptomatic hyponatremia. At this point, I assessed if she has some dehydration just based on history of nausea, anorexia. I suspect that a viral syndrome plays a role in the dehydration combined with her use of chlorthalidone. At this point, she will be admitted to the hospital. We will hold her chlorthalidone and replete her volume status with normal saline. I calculated that at around 95 mL an hour of normal saline, she will correct her sodium in her serum at less than 0.5 per hour. We can recheck her sodium in the morning and ensure we are not overcorrecting too quickly because we are not sure if this is acute or chronic. Overcorrecting chronic hyponatremia could be dangerous with osmotic demyelination syndrome. We will also replete her magnesium and potassium and recheck this in the morning. For hypothyroidism, we will continue her on the same dose of levothyroxine and check her TSH. For her blood pressure, we will continue her on her hydralazine and enalapril, but leave her off the chlorthalidone. For DVT prophylaxis, she can have subcutaneous heparin. [id number]/[facility] #: [id number] MTDD
[2019-02-01 06:59] LABS: TSH (Thyroid Stimulating Horm) 3.3 mcIU/mL (0.34-5.60)
[2019-02-01] MEDS: Heparin VIAL(*) 5000 UNITS/ML VIAL (FIVE THOUSAND) SUBCUT SCH ×2 (08:55→21:21)
[2019-02-01] MEDS ORDERED: Enalapril TAB* 5 MG PO SCH (09:00)
[2019-02-01] MEDS: Atorvastatin* 10 MG TAB PO SCH (09:05)
[2019-02-01] MEDS: Cyanocobalamin TAB* 500 MCG PO SCH (09:05)
[2019-02-01] MEDS: Magnesium Oxide TAB* 400 MG PO SCH (09:05)
[2019-02-01] MEDS: Aspirin 81 mg CHEW TAB* 81 MG TAB.CHEW PO SCH (09:10)
[2019-02-01] MEDS: Cholecalciferol TAB* 1000 UNITS PO SCH (09:12)
[2019-02-01] MEDS: hydrALAZINE TAB* 25 MG PO SCH ×2 (09:12→21:24)
[2019-02-01] MEDS ORDERED: KCL 20 MEQ/100 ML IVPREMIX* 20 MEQ/100 ML BAG IV ONE (15:58)
[2019-02-01] MEDS ORDERED: Potassium Chloride* LIQUID 20 MEQ/15 ML UDC PO ONE (15:58)
[2019-02-01] MEDS ORDERED: Ibuprofen TAB* 600 MG PO PRN (16:14)
--- NOTE | 2019-02-01 16:21 | PN ---
Subjective Date of Service: 02/01/19 Interval History: Patient is feeling much better. Patient has no more nausea, patient states this resolved soon after admission. Patient states she has had a headache since this AM. Patient denies F/C, N/V, abdominal pain, diarrhea, dysuria, CP, SOB. Patient has an itchy rash on her arms and face which has started since she has been in the hospital but has had no wheezing. Patient has chronic lower back pain. Family History: Unchanged from Admission Social History: Unchanged from Admission Past Medical History: Unchanged from Admission Objective Active Medications: Acetaminophen (Tylenol Tab*) 650 mg PO Q6H PRN PRN Reason: Mild to moderate pain/fever Last Admin: 02/01/19 03:38 Dose: 650 mg Aspirin (Aspirin 81 Mg Chew Tab*) 81 mg PO DAILY [facility] Last Admin: 02/01/19 09:10 Dose: Not Given Atorvastatin Calcium (Lipitor*) 10 mg PO DAILY [facility] Last Admin: 02/01/19 09:05 Dose: Not Given Cholecalciferol (Vitamin D Tab*) 2,000 units PO DAILY [facility] Last Admin: 02/01/19 09:12 Dose: 2,000 units Cyanocobalamin (Vitamin B12 Tab*) 1,000 mcg PO DAILY [facility] Last Admin: 02/01/19 09:05 Dose: 1,000 mcg Enalapril Maleate (Vasotec Tab*) 10 mg PO DAILY [facility] Last Admin: 02/01/19 09:06 Dose: 5 mg Heparin Sodium (Porcine) (Heparin Vial(*)) 5,000 units SUBCUT Q12HR [facility] Last Admin: 02/01/19 08:55 Dose: 5,000 units Hydralazine HCl (Apresoline Tab*) 50 mg PO BID [facility] Last Admin: 02/01/19 09:12 Dose: Not Given Potassium Chloride (Potassium Chloride 20 Meq/100 Ml Ivpremix*) 20 meq in 100 mls @ 50 mls/hr IV ONCE ONE Stop: 02/01/19 17:57 Ibuprofen (Motrin Tab*) 600 mg PO Q6H PRN PRN Reason: PAIN Levothyroxine Sodium (Synthroid Tab*) 50 mcg PO 0600 [facility] Last Admin: 02/01/19 05:03 Dose: 50 mcg Magnesium Oxide (Magox 400 Tab*) 400 mg PO DAILY [facility] Last Admin: 02/01/19 09:05 Dose: 400 mg Melatonin (Melatonin) 9 mg PO BEDTIME [facility] Vital Signs - 8 hr 02/01/19 11:35 Temperature 97.9 F Pulse Rate 55 Respiratory 18 Rate Blood Pressure 117/70 (mmHg) O2 Sat by Pulse 97 Oximetry Oxygen Devices in Use Now: None Appearance: Patient is a 73yo female who appears stated age and is sitting in the bed in NAD. Eyes: No Scleral Icterus, PERRLA Ears/Nose/Mouth/Throat: NL Teeth, Lips, Gums, Clear Oropharnyx, Mucous Membranes Moist Neck: NL Appearance and Movements; NL JVP, Trachea Midline Respiratory: Symmetrical Chest Expansion and Respiratory Effort, Clear to Auscultation Cardiovascular: NL Sounds; No Murmurs; No JVD, RRR, No Edema Abdominal: NL Sounds; No Tenderness; No Distention, No Hepatosplenomegaly Lymphatic: No Cervical Adenopathy Extremities: No Edema, No Clubbing, Cyanosis Skin: No Rash or Ulcers, No Nodules or Sclerosis Neurological: Alert and Oriented x 3, NL Sensation, NL Muscle Strength and Tone , - - CN II-XII intact. Result Diagrams: 02/01/19 05:54 02/01/19 05:54 Assess/Plan/Problems-Billing Assessment: Patient is a 73yo female with a PMH for HTN who presents with 1 day of N/V, was found to have a low sodium and is improving on IV fluids. - Patient Problems (1) Hyponatremia Current Visit: Yes Status: Acute Code(s): E87.1 - HYPO-OSMOLALITY AND HYPONATREMIA SNOMED Code(s): 66017370 Comment: - Initially severe. Given resolution of nausea with improvement in sodium, nausea is likely an effect rather than a cause of hyponatremia - Stop fluids and recheck BMP to avoid overcorrection, unclear chronicity of hyponatremia - Will attempt to get PCP notes from earlier in day. - Headache mildly concerning for osmotic shift related to overcorrection of sodium - Follow BMP closely. - Likely related to Chlorthalidone. (2) HTN (hypertension) Current Visit: Yes Status: Acute Code(s): I10 - ESSENTIAL (PRIMARY) HYPERTENSION SNOMED Code(s): 95225133 Comment: - Normotensive, continue Hydralazine and Enalapril (3) Full code status Current Visit: No Status: Acute Code(s): Z78.9 - OTHER SPECIFIED HEALTH STATUS SNOMED Code(s): 887893554 (4) DVT prophylaxis Current Visit: No Status: Acute Code(s): LUC7743 - SNOMED Code(s): 081925925 Comment: - SQ heparin. Status and Disposition: Inpatient. Hopeful D/C tomorrow.
[2019-02-01 16:54] LABS: BUN/Creatinine Ratio 15.1 (8-20); Calcium 9.4 mg/dL (8.6-10.3); EGFR African American 78.7 (>60); Potassium 3.9 mmol/L (3.5-5.0)
[2019-02-01 16:54] LABS: Urine Appearance Clear; Urine Bacteria Absent (Absent); Urine Bilirubin Negative (Negative); Urine Blood 1+ (Negative); Urine Color Straw; Urine Glucose Negative (Negative); Urine Ketones Negative (Negative); Urine Nitrite Negative (Negative); Urine Protein Negative (Negative); Urine Red Blood Cell Trace(0-2/hpf) (Absent); Urine Specific Gravity 1.004 (1.010-1.030); Urine Squamous Epithelial Cell Present (Absent); Urine Urobilinogen Negative (Negative); Urine White Blood Cell Trace(0-5/hpf) (Absent)
[2019-02-01] MEDS ORDERED: Desmopressin Acetate* 4 MCG/ML 10 ML VIAL IVPB ONE (17:07)
[2019-02-01] MEDS ORDERED: Desmopressin Acetate* 4 MCG/ML 1 ML SDV IV ONE (18:00)
[2019-02-01 20:32] LABS: BUN/Creatinine Ratio 17.3 (8-20); Calcium 9.4 mg/dL (8.6-10.3); EGFR African American 84.3 (>60); EGFR Non-African American 69.7 (>60)
[2019-02-01 20:38] LABS: Potassium 5.2 mmol/L (3.5-5.0)
[2019-02-01] MEDS: Melatonin 3 MG TAB PO SCH (21:22)
[2019-02-01] MEDS: Enalapril TAB* 5 MG PO SCH (21:24)
[2019-02-01 23:05] LABS: BUN/Creatinine Ratio 20.5 (8-20); Calcium 9.3 mg/dL (8.6-10.3); EGFR African American 95.1 (>60); EGFR Non-African American 78.6 (>60); Potassium 4.7 mmol/L (3.5-5.0)
[2019-02-02 01:41] LABS: BUN/Creatinine Ratio 21.9 (8-20); Calcium 9.2 mg/dL (8.6-10.3); EGFR African American 95.1 (>60); EGFR Non-African American 78.6 (>60); Potassium 4.5 mmol/L (3.5-5.0)
[2019-02-02] MEDS: Levothyroxine TAB* 50 MCG TAB PO SCH (05:33)
[2019-02-02] MEDS: Acetaminophen TAB* 325 MG PO PRN (05:33)
[2019-02-02] MEDS: diPHENhydraMINE PO* 25 MG PO PRN ×2 (05:47→12:13)
[2019-02-02 06:29] LABS: BUN/Creatinine Ratio 21.4 (8-20); Calcium 9.8 mg/dL (8.6-10.3); EGFR African American 99.8 (>60); EGFR Non-African American 82.5 (>60)
[2019-02-02] MEDS: Heparin VIAL(*) 5000 UNITS/ML VIAL (FIVE THOUSAND) SUBCUT SCH ×2 (08:34→21:56)
[2019-02-02] MEDS: Enalapril TAB* 5 MG PO SCH ×3 (08:50→21:56)
[2019-02-02] MEDS: Cholecalciferol TAB* 1000 UNITS PO SCH (08:50)
[2019-02-02] MEDS: Cyanocobalamin TAB* 500 MCG PO SCH (08:51)
[2019-02-02] MEDS: hydrALAZINE TAB* 25 MG PO SCH ×2 (08:51→21:57)
[2019-02-02] MEDS: Sertraline* 50 MG TAB PO SCH (08:51)
[2019-02-02] MEDS: Magnesium Oxide TAB* 400 MG PO SCH (08:52)
[2019-02-02] MEDS: Aspirin 81 mg CHEW TAB* 81 MG TAB.CHEW PO SCH (08:52)
[2019-02-02] MEDS: Atorvastatin* 10 MG TAB PO SCH (08:53)
[2019-02-02] MEDS ORDERED: Sertraline* 100 MG TAB PO SCH (09:00)
[2019-02-02 12:43] LABS: Calcium 10.1 mg/dL (8.6-10.3); Potassium 4.2 mmol/L (3.5-5.0)
[2019-02-02 12:49] LABS: BUN/Creatinine Ratio 26.2 (8-20); EGFR African American 108.7 (>60); EGFR Non-African American 89.9 (>60)
[2019-02-02 17:37] LABS: Calcium 9.3 mg/dL (8.6-10.3); EGFR African American 95.1 (>60); EGFR Non-African American 78.6 (>60); Potassium 4.3 mmol/L (3.5-5.0)
--- NOTE | 2019-02-02 18:12 | PN ---
Subjective Date of Service: 02/02/19 Interval History: Patient is complaining about itching and frontal headache. itching is on the arms, face and head and has been going on since before she was admitted to the hospital. There is a mild rash in these areas without obvious urticaria. Patient denies any new exposures. Patient denies weakness, unsteadiness, or other neurological symptoms. Patient denies F/C, N/V, abdominal pain, diarrhea, CP, SOB. Family History: Unchanged from Admission Social History: Unchanged from Admission Past Medical History: Unchanged from Admission Objective Active Medications: Acetaminophen (Tylenol Tab*) 650 mg PO Q6H PRN PRN Reason: Mild to moderate pain/fever Last Admin: 02/02/19 05:33 Dose: 650 mg Aspirin (Aspirin 81 Mg Chew Tab*) 81 mg PO DAILY [facility] Last Admin: 02/02/19 08:52 Dose: 81 mg Cholecalciferol (Vitamin D Tab*) 2,000 units PO DAILY [facility] Last Admin: 02/02/19 08:50 Dose: 2,000 units Cyanocobalamin (Vitamin B12 Tab*) 1,000 mcg PO DAILY [facility] Last Admin: 02/02/19 08:51 Dose: 1,000 mcg Diphenhydramine HCl (Benadryl Po*) 25 mg PO Q6H PRN PRN Reason: ITCHING Last Admin: 02/02/19 12:13 Dose: 25 mg Enalapril Maleate (Vasotec Tab*) 5 mg PO BID [facility] Heparin Sodium (Porcine) (Heparin Vial(*)) 5,000 units SUBCUT Q12HR [facility] Last Admin: 02/02/19 08:34 Dose: 5,000 units Hydralazine HCl (Apresoline Tab*) 50 mg PO BID [facility] Last Admin: 02/02/19 08:51 Dose: 50 mg Sodium Chloride (Ns 0.9% 1000 Ml) 1,000 mls @ 60 mls/hr IV .PER RATE [facility] Ibuprofen (Motrin Tab*) 600 mg PO Q6H PRN PRN Reason: PAIN Last Admin: 02/02/19 06:50 Dose: 600 mg Levothyroxine Sodium (Synthroid Tab*) 50 mcg PO 0600 [facility] Last Admin: 02/02/19 05:33 Dose: 50 mcg Magnesium Oxide (Magox 400 Tab*) 400 mg PO DAILY [facility] Last Admin: 02/02/19 08:52 Dose: 400 mg Melatonin (Melatonin) 9 mg PO BEDTIME [facility] Last Admin: 02/01/19 21:22 Dose: 9 mg Prednisone (Deltasone Tab*) 20 mg PO DAILY [facility] Sertraline HCl (Zoloft*) 50 mg PO DAILY [facility] Last Admin: 02/02/19 08:51 Dose: 50 mg Vital Signs - 8 hr 02/02/19 02/02/19 02/02/19 10:44 10:56 12:13 Temperature 97.9 F Pulse Rate 67 Respiratory 16 20 16 Rate Blood Pressure 101/68 (mmHg) O2 Sat by Pulse 97 Oximetry 02/02/19 02/02/19 14:26 15:36 Temperature 98.2 F Pulse Rate 61 Respiratory 16 16 Rate Blood Pressure 104/64 (mmHg) O2 Sat by Pulse 97 Oximetry Oxygen Devices in Use Now: None Appearance: Patient is a 73yo female who appears stated age and is sitting in the bed in [facility]. Eyes: No Scleral Icterus, PERRLA Ears/Nose/Mouth/Throat: NL Teeth, Lips, Gums, Clear Oropharnyx, Mucous Membranes Moist Neck: NL Appearance and Movements; NL JVP, Trachea Midline Respiratory: Symmetrical Chest Expansion and Respiratory Effort, Clear to Auscultation Cardiovascular: NL Sounds; No Murmurs; No JVD, RRR, No Edema Abdominal: NL Sounds; No Tenderness; No Distention Lymphatic: No Cervical Adenopathy Extremities: No Edema, No Clubbing, Cyanosis Skin: No Rash or Ulcers, No Nodules or Sclerosis Neurological: Alert and Oriented x 3, NL Sensation, NL Muscle Strength and Tone , - - CN II-XII intact. Result Diagrams: 02/01/19 05:54 02/02/19 17:10 Microbiology and Other Data: Microbiology 02/01/19 16:45 Urine Culture - Final Urine No Growth (<1,000 CFU/mL) Assess/Plan/Problems-Billing Assessment: Patient is a 73yo female with a PMH for HTN who presents with 1 day of N/V, was found to have a low sodium and is improving on IV fluids. - Patient Problems (1) Hyponatremia Current Visit: Yes Status: Acute Code(s): E87.1 - HYPO-OSMOLALITY AND HYPONATREMIA SNOMED Code(s): 25108456 Comment: - Initially severe. Given resolution of nausea with improvement in sodium, nausea is likely an effect rather than a cause of hyponatremia - Needed Desmopressin to avoid overcorrection. - Will attempt to get PCP notes from earlier in day. - Headache mildly concerning for osmotic shift related to overcorrection of sodium - Follow BMP closely. Sodium is decreasing again, 6 point in 12 hours - Likely related to Chlorthalidone. Half life is 48-60 hours in long-term use. - Initial Urine studies not likely valid due to DDAVP use, Will repeat to confirm diagnosis and then resume fluids. (2) HTN (hypertension) Current Visit: Yes Status: Acute Code(s): I10 - ESSENTIAL (PRIMARY) HYPERTENSION SNOMED Code(s): 19783037 Comment: - Normotensive, continue Hydralazine and Enalapril (3) Full code status Current Visit: No Status: Acute Code(s): Z78.9 - OTHER SPECIFIED HEALTH STATUS SNOMED Code(s): 075966258 (4) DVT prophylaxis Current Visit: No Status: Acute Code(s): NYA7562 - SNOMED Code(s): 469221351 Comment: - SQ heparin. Status and Disposition: Inpatient. D/C when medically stable.
[2019-02-02] MEDS ORDERED: NS 0.9% 1000 ML** 1,000 ML IV SCH (18:15)
[2019-02-02] MEDS: predniSONE TAB* 20 MG PO SCH (18:45)
[2019-02-02] MEDS: Melatonin 3 MG TAB PO SCH (21:57)
[2019-02-03 00:03] LABS: BUN/Creatinine Ratio 23.4 (8-20); Calcium 9.6 mg/dL (8.6-10.3); EGFR African American 110.7 (>60); EGFR Non-African American 91.5 (>60); Potassium 4.1 mmol/L (3.5-5.0)
[2019-02-03] MEDS: Levothyroxine TAB* 50 MCG TAB PO SCH (05:12)
[2019-02-03 05:50] LABS: ABS Lymphocytes 1.3 10^3/ul (1.0-4.8); ABS Monocytes 0.6 10^3/ul (0-0.8); ABS Neutrophils 5.8 10^3/ul (1.5-7.7); Eosinophil % 0.2 %; Hematocrit 34 % (35-47); Hemoglobin 11.7 g/dL (12.0-16.0); Lymphocyte % 17.1 %; Mean Corpuscular HGB Conc 34 g/dL (31-36); Mean Corpuscular Hemoglobin 30 pg (27-31); Mean Corpuscular Volume 87 fL (80-97); Mean Platelet Volume 7.3 fL (7.4-10.4); Platelet Count 278 10^3/uL (150-450); Red Blood Count 3.92 10^6 /uL (3.70-4.87); Red Cell Distribution Width 14 % (10-15); White Blood Count 7.7 10^3/uL (3.5-10.8)
[2019-02-03 06:00] LABS: BUN/Creatinine Ratio 25.5 (8-20); Calcium 8.9 mg/dL (8.6-10.3); EGFR African American 131.8 (>60); Potassium 4.1 mmol/L (3.5-5.0)
[2019-02-03] MEDS: Sertraline* 50 MG TAB PO SCH (08:52)
[2019-02-03] MEDS: Heparin VIAL(*) 5000 UNITS/ML VIAL (FIVE THOUSAND) SUBCUT SCH ×2 (08:52→20:10)
[2019-02-03] MEDS: predniSONE TAB* 20 MG PO SCH (08:52)
[2019-02-03] MEDS: Enalapril TAB* 5 MG PO SCH ×2 (08:52→20:10)
[2019-02-03] MEDS: Magnesium Oxide TAB* 400 MG PO SCH (08:53)
[2019-02-03] MEDS: Cholecalciferol TAB* 1000 UNITS PO SCH (08:53)
[2019-02-03] MEDS: Cyanocobalamin TAB* 500 MCG PO SCH (08:53)
--- NOTE | 2019-02-03 11:22 | PN ---
Subjective Date of Service: 02/03/19 Interval History: Patient feels her itching and her rash have improved. She does still feel occasional need to itch her arms. She reports she felt mildly lightheaded when walking earlier this morning, but this resolved within several seconds while still walking. She reports a mild headache as well, but does not feel she needs medication at this time. She states she felt some nausea while eating breakfast this morning which resolved after she stopped eating, so she only ate a yogurt. Denies numbness/tingling, fever/chills, difficulty breathing, chest pain, abd pain, vomiting. Family History: Unchanged from Admission Social History: Unchanged from Admission Past Medical History: Unchanged from Admission Objective Active Medications: Acetaminophen (Tylenol Tab*) 650 mg PO Q6H PRN PRN Reason: Mild to moderate pain/fever Last Admin: 02/02/19 05:33 Dose: 650 mg Aspirin (Aspirin 81 Mg Chew Tab*) 81 mg PO DAILY [facility] Last Admin: 02/02/19 08:52 Dose: 81 mg Cholecalciferol (Vitamin D Tab*) 2,000 units PO DAILY [facility] Last Admin: 02/03/19 08:53 Dose: 2,000 units Cyanocobalamin (Vitamin B12 Tab*) 1,000 mcg PO DAILY [facility] Last Admin: 02/03/19 08:53 Dose: 1,000 mcg Diphenhydramine HCl (Benadryl Po*) 25 mg PO Q6H PRN PRN Reason: ITCHING Last Admin: 02/02/19 12:13 Dose: 25 mg Enalapril Maleate (Vasotec Tab*) 5 mg PO BID [facility] Last Admin: 02/03/19 08:52 Dose: 5 mg Heparin Sodium (Porcine) (Heparin Vial(*)) 5,000 units SUBCUT Q12HR [facility] Last Admin: 02/03/19 08:52 Dose: 5,000 units Hydralazine HCl (Apresoline Tab*) 50 mg PO BID [facility] Last Admin: 02/02/19 21:57 Dose: 50 mg Ibuprofen (Motrin Tab*) 600 mg PO Q6H PRN PRN Reason: PAIN Last Admin: 02/02/19 06:50 Dose: 600 mg Levothyroxine Sodium (Synthroid Tab*) 50 mcg PO 0600 [facility] Last Admin: 02/03/19 05:12 Dose: 50 mcg Magnesium Oxide (Magox 400 Tab*) 400 mg PO DAILY [facility] Last Admin: 02/03/19 08:53 Dose: 400 mg Melatonin (Melatonin) 9 mg PO BEDTIME [facility] Last Admin: 02/02/19 21:57 Dose: 9 mg Sertraline HCl (Zoloft*) 50 mg PO DAILY [facility] Last Admin: 02/03/19 08:52 Dose: 50 mg Vital Signs - 8 hr 02/03/19 02/03/19 02/03/19 03:25 07:15 07:20 Temperature 98.2 F 97.8 F Pulse Rate 64 55 Respiratory 18 16 16 Rate Blood Pressure 108/62 126/71 (mmHg) O2 Sat by Pulse 97 96 Oximetry Oxygen Devices in Use Now: None Appearance: Thin, elderly white female laying upright in hospital bed appearing in NAD Eyes: No Scleral Icterus, PERRLA Ears/Nose/Mouth/Throat: Mucous Membranes Moist Respiratory: Symmetrical Chest Expansion and Respiratory Effort, - - Fine crackles to bilateral lung bases Cardiovascular: RRR, - - Grade II systolic murmur Abdominal: NL Sounds; No Tenderness; No Distention Extremities: No Edema, No Clubbing, Cyanosis, - - neg calf tenderness Skin: No Rash or Ulcers Neurological: Alert and Oriented x 3, NL Muscle Strength and Tone Result Diagrams: 02/03/19 05:03 02/03/19 05:03 Microbiology and Other Data: Microbiology 02/01/19 16:45 Urine Culture - Final Urine No Growth (<1,000 CFU/mL) Assess/Plan/Problems-Billing Assessment: Patient is a 73yo female with a PMH for HTN who presents with 1 day of N/V, was found to have hyponatremia. - Patient Problems (1) Hyponatremia Current Visit: Yes Status: Acute Code(s): E87.1 - HYPO-OSMOLALITY AND HYPONATREMIA SNOMED Code(s): 77051876 Comment: - Initially severe to 119 and received desmopressin - Likely related to Chlorthalidone. Half life is 48-60 hours in [facility] use. - Possibility of adrenal insufficiency; cortisol minimally low, will plan for ACTH stimulation test tomorrow AM; unable to perform today due to prednisone adminsitered for itch which has since been discontinued - Will attempt to get PCP notes tomorrow to determine chronicity - Discontinuing saline, ordered fluid restriction - Sodium uptrending, to 128 today - Headache improved, but still present (2) Itching Current Visit: Yes Status: Acute Code(s): L29.9 - PRURITUS, UNSPECIFIED SNOMED Code(s): 874636522 Comment: -apparently there was evidence of mild erythematous rash to face, arms, chest yesterday which is resolved today -itching was not resolved with prn benadryl; pt received prednisone yesterday evening which reportedly helped -will d/c prednisone, continue prn benadryl; will give dexamethasone if needed instead of prednisone -unclear etiology; LFTs normal, no apparent urticaria, possible contact dermatitis to linens (3) Hypothyroidism Current Visit: Yes Status: Acute Code(s): E03.9 - HYPOTHYROIDISM, UNSPECIFIED SNOMED Code(s): 23160586 Comment: -TSH wnl at admission -continue home levothyroxine (4) Bibasilar crackles Current Visit: Yes Status: Acute Code(s): R09.89 - OTH SYMPTOMS AND SIGNS INVOLVING THE CIRC AND RESP SYSTEMS SNOMED Code(s): 608914116 Comment: -patient without difficulty breathing and O2 sat is wnl -likely atelectasis, may have mild fluid overload as patient has been receiving IVF and has -ordered incentive spirometry (5) HTN (hypertension) Current Visit: Yes Status: Acute Code(s): I10 - ESSENTIAL (PRIMARY) HYPERTENSION SNOMED Code(s): 10356751 Comment: - Normotensive - continue home enalapril - home hydralazine is QPM, adjusted order - holding home chlorthalidone (6) DVT prophylaxis Current Visit: No Status: Acute Code(s): MJF1283 - SNOMED Code(s): 283643694 Comment: - SQ heparin. (7) Full code status Current Visit: No Status: Acute Code(s): Z78.9 - OTHER SPECIFIED HEALTH STATUS SNOMED Code(s): 702096995 Status and Disposition: Inpatient. D/C when medically stable.
[2019-02-03 12:59] LABS: BUN/Creatinine Ratio 18.2 (8-20); Calcium 9.9 mg/dL (8.6-10.3); EGFR African American 106.8 (>60); EGFR Non-African American 88.3 (>60); Potassium 3.8 mmol/L (3.5-5.0)
[2019-02-03] MEDS: Aspirin 81 mg CHEW TAB* 81 MG TAB.CHEW PO SCH (14:17)
[2019-02-03] MEDS: hydrALAZINE TAB* 25 MG PO SCH (14:17)
[2019-02-03 17:56] LABS: BUN/Creatinine Ratio 21.4 (8-20); Calcium 9.8 mg/dL (8.6-10.3); EGFR African American 99.8 (>60); EGFR Non-African American 82.5 (>60); Potassium 4.2 mmol/L (3.5-5.0)
[2019-02-03] MEDS ORDERED: hydrALAZINE TAB* 25 MG PO SCH (18:00)
[2019-02-03] MEDS ORDERED: Aspirin 81 mg CHEW TAB* 81 MG TAB.CHEW PO SCH (21:00)
[2019-02-03] MEDS: Melatonin 3 MG TAB PO SCH (21:56)
[2019-02-04] MEDS: Levothyroxine TAB* 50 MCG TAB PO SCH (05:13)
[2019-02-04 07:18] LABS: BUN/Creatinine Ratio 18.8 (8-20); Calcium 9.3 mg/dL (8.6-10.3); EGFR African American 101.5 (>60); EGFR Non-African American 83.9 (>60); Potassium 3.9 mmol/L (3.5-5.0)
[2019-02-04] MEDS ORDERED: Cosyntropin* 0.25 MG VIAL IV ONE (08:57)
[2019-02-04] MEDS: Heparin VIAL(*) 5000 UNITS/ML VIAL (FIVE THOUSAND) SUBCUT SCH (09:21)
[2019-02-04] MEDS: Cholecalciferol TAB* 1000 UNITS PO SCH (09:23)
[2019-02-04] MEDS: Magnesium Oxide TAB* 400 MG PO SCH (09:24)
[2019-02-04] MEDS: Cyanocobalamin TAB* 500 MCG PO SCH (09:24)
[2019-02-04] MEDS: Enalapril TAB* 5 MG PO SCH (09:24)
[2019-02-04] MEDS: Sertraline* 50 MG TAB PO SCH (09:25)
[2019-02-04 12:56] VITALS: BP 123/72
[2019-02-04] MEDS: Acetaminophen TAB* 325 MG PO PRN (13:01)
--- NOTE | 2019-02-04 22:26 | DS ---
DISCHARGE SUMMARY: DATE OF ADMISSION: 02/01/19 DATE OF DISCHARGE: 02/04/19 ATTENDING PHYSICIAN WHILE IN THE HOSPITAL: Dr. Rochelle De Leon * (dictated by MICHAEL Abdi). PRIMARY DIAGNOSIS: Hyponatremia, likely related to thiazide use, poor oral intake. SECONDARY DIAGNOSES: 1. Hypertension. 2. Aortic stenosis. 3. Hypothyroidism. STUDIES WHILE IN THE HOSPITAL: X-ray on the day of admission with no infiltrates or effusion. PERTINENT LAB DATA: Sodium on the day of admission 119, sodium on day of discharge 132. HISTORY OF PRESENT ILLNESS/HOSPITAL COURSE: Nataliia Spencer is a 73-year-old female with past medical history significant for hypertension, hyponatremia, and aortic stenosis who presented to the emergency department on 02/01/19 due to nausea. Please see admitting history and physical dictated by Dr. Chris Garcia on 02/01/19 for further details. During the hospital stay, she was found to have hyponatremia to 119, and her home thiazide and chlorthalidone were stopped given her severe hyponatremia. She was initially given fluid repletion , and there was an overcorrection of her sodium within a 24-hour period and was given DDAVP at one point and had labile sodium levels. During her hospital stay , she did also have hypovolemia at admission with high risk for osmotic demyelination syndrome and did have neuro checks frequently. She did have a moderately low cortisole, and an ACTH stimulation test was performed, which was normal and her TSH was within normal limits. Given her thiazide use and her poor oral intake of sodium and her possibility of being hypovolemic due to her nausea and poor oral intake in the setting of acute illness leading up to her hospitalization, it was thought that these are the explanations of her hyponatremia. She responded well to later in the hospital the patient having no IV fluids and fluid restriction. Additionally, there was mention of itching and slight flushing and possible rash to her extremities and chest during her hospital stay, which resolved with 1 dose of prednisone and p.r.n. Benadryl. It was felt that this is possibly a contact dermatitis due to her bed linen. On the date of discharge, the patient is feeling well. She does have a mild headache, which resolved with Tylenol. No confusion, visual changes, dizziness , numbness or tingling in her extremities. Denies difficulty breathing, fever, chills, and chest pain. The patient did at 1 point have crackles in her bilateral lung bases; however, this was after large volumes of normal saline was administered, this was thought to be due to some mild fluid overload and this was resolved by the day of discharge. PHYSICAL EXAMINATION ON DISCHARGE: General: Thin, elderly white female, lying in the hospital bed, appearing comfortable, in no acute distress. Head: Normocephalic, atraumatic. Eyes: PERRLA. Sclerae anicteric. EOMI. ENT: Mucous membranes are moist. Neck: Supple without JVD. Lungs: Clear to auscultation throughout. Cardio: Regular rate and rhythm with grade 2 systolic murmur appreciated. Abdomen: Normoactive bowel sounds x4 quadrants. Abdomen is soft, nontender, nondistended. Extremities: No edema, clubbing, or cyanosis. Neuro: The patient is alert and oriented x3. No focal deficits. Skin: No rashes. Skin is warm, dry, and intact. DISCHARGE PLAN: DIET: Regular unrestricted diet. The patient was advised to liberalize her salt intake. ACTIVITY: The patient may return to normal activity as tolerated. DISCHARGE MEDICATIONS: No new medications. Continued home medications: 1. Hydralazine 50 mg p.o. q.p.m. 2. Enalapril 5 mg p.o. b.i.d. 3. Zoloft 50 mg p.o. daily. 4. CoQ10 p.o. daily. 5. Melatonin 10 mg p.o. q.p.m. 6. Aspirin 81 mg p.o. daily. 7. Tylenol 650 mg mg q.6 hours p.r.n. pain. 8. Cinnamon bark. 9. Vitamin D 2000 units p.o. daily. 10. Calcium citrate tablet 1 tablet p.o. daily. 11. Evening primrose 1000 mg p.o. daily. 12. Vitamin B12 1000 mcg p.o. daily. 13. Magnesium oxide 400 mg p.o. daily. 14. Synthroid 50 mcg p.o. daily. 15. Zinc 50 mg p.o. daily. 16. Vitamin E 400 units p.o. daily. 17. Vitamin B5 500 mg p.o. daily. The patient was advised to discontinue her chlorthalidone. During her hospital stay, her blood pressure was overall normotensive; however, she was advised to check her blood pressure daily or every other day and record it leading up to her followup appointment with her primary care provider so that any changes in antihypertensive medications can be made at that time. She has been advised to follow up with her primary care provider within 7 to 10 days. However, she was advised to call the office to have repeat BMP within 3 to 4 days prior to this appointment. She was advised to return to the emergency department if she is experiencing confusion, changes in vision, dizziness, or any new or worsening symptoms such as severe headache. CONDITION ON DISCHARGE: Stable. DISPOSITION: To home. TIME SPENT: Approximately 35 minutes was spent on this discharge, approximately half this time was spent at the bedside. MICHAEL ABDI [id number]/CPS #: [id number]
== END 2019-02-04 15:30 | disposition home or self-care (01) | DRG 641 ==
LOC: ED 21:38 → MEDTELE 02-01 02:06
PROVIDERS: ADMIT Internal Medicine; ATTEND Internal Medicine
DX: E87.1 Hypo-osmolality and hyponatremia (principal); J98.11 Atelectasis; E86.0 Dehydration; E86.1 Hypovolemia; I35.0 Nonrheumatic aortic (valve) stenosis; E03.9 Hypothyroidism, unspecified; T50.2X5A Adverse effect of carbonic-anhydrase inhibitors, benzothiadiazides and other diuretics, initial encounter; I10 Essential (primary) hypertension; L23.89 Allergic contact dermatitis due to other agents; R51 Headache; Y92.9 Unspecified place or not applicable; Z79.82 Long term (current) use of aspirin; Z79.899 Other long term (current) drug therapy; Z88.2 Allergy status to sulfonamides; Z91.041 Radiographic dye allergy status; Z80.1 Family history of malignant neoplasm of trachea, bronchus and lung; Z80.8 Family history of malignant neoplasm of other organs or systems
CPT/HCPCS: 36415; 71045; 80048; 80053; 81003; 81015; 82533; 83605; 83690; 83735; 83930; 83935; 84300; 84443; 85025; 85610; 85730; 87086; 93005; 99284; A9270-GY; J0834; J1644; J2405; J2597; J3475; J3480; J7512